=== PATIENT | male | born 1955 | race Caucasian/White ===

== ENCOUNTER 2016-05-17 21:38 | Emergency (ER) | payer OTHER ==
[~2016-05-17] VITALS: Ht 170.2 cm; Wt 106.5 kg
[~2016-05-17 21:38] MED LIST: ACT15 PO; AMR2 PO; GLC500 PO; HYDC25 PO; LISI40TA PO; METO50TA7 PO; SIMV20TA2 PO
[2016-05-17 21:43] VITALS: TEMP 36.4; Ht 170.2 cm; Wt 106.5 kg
[2016-05-17] MEDS ORDERED: HYDROCODONE/ACETAMOPHEN 5/325MG TAB PO ONE (22:00)
[2016-05-17] MEDS ORDERED: HYDR25TA4 PO (22:13)
[2016-05-17] MEDS ORDERED: CANA1TAB3 PO (22:13)
[2016-05-17] MEDS ORDERED: METF1TAB85 PO (22:13)
[2016-05-17] MEDS ORDERED: ATOR-24 PO (22:19)
[2016-05-17] MEDS ORDERED: LOSA100T65 PO (22:19)
[2016-05-17] MEDS ORDERED: ASPI81TA28 PO (22:22)
[2016-05-17] MEDS ORDERED: GLUCTAB7 PO (22:22)
--- NOTE | 2016-05-17 22:34 | DIAGNOSTIC IMAGING REPORT ---
CT OF THE CHEST WITHOUT IV CONTRAST CLINICAL HISTORY: Chest pain status post trauma COMPARISON STUDY: No previous studies for comparison. CT DOSE: 671.76 mGy.cm TECHNIQUE: CT of the thorax was performed from the thoracic inlet to the lung bases. Images are reviewed in the axial, sagittal, and coronal planes. IV contrast was not administered for this examination. FINDINGS: Thyroid: Imaged portions of the thyroid gland are normal in appearance. Thoracic aorta: The thoracic aorta is normal in course and caliber, noting standard 3 vessel arch anatomy. Heart: The heart is normal in size and configuration, without pericardial effusion. Lungs and pleural spaces: No pleural effusions are visualized. There is no pneumothorax. There is no evidence of focal pulmonary contusion. There are minor right basilar atelectatic changes. A 4 x 2 mm right lower lobe nodule abutting the major fissure likely represents a lymph node. There is a 3 mm right upper lobe pulmonary nodule as visualized in image #[id number]. Mediastinum: There is no evidence of mediastinal hematoma. There is no pathologic adenopathy. Ruma: There is no evidence of pathologic hilar adenopathy given the limitations of a noncontrast study Axilla: Clear. Upper abdomen: Partially visualized upper abdominal viscera is within normal limits. Skeletal structures: No fractures are visualized. IMPRESSION: 1. No CT evidence of acute intrathoracic injury 2. 3 mm right upper lobe pulmonary nodule. Please refer to below summary of Fleischner criteria recommendations for follow-up of incidental CT nodules (Jamin Rose, Guidelines for management of small pulmonary nodules detected on CT scans: A statement from the Fleischner Society, Radiology 237: [phone].) Low Risk Patient: Minimal or no smoking or other known risk factors for malignancy <=4 mm: No follow-up needed. >4-6 mm: Initial follow-up CT at 12 months; if unchanged, no further follow-up. >6-8 mm: Initial follow-up CT at 6-12 months then at 18-24 months if no change. >8 mm: Follow-up CT at \R\3, 9, 24 months, or PET and/or biopsy. High Risk Patient: History of smoking or other known risk factors <=4 mm: Follow-up at 12 months; if unchanged, no further follow-up. >4-6 mm: Initial follow-up CT at 6-12 months then at 18-24 months if no change. >6-8 mm: Initial follow-up CT at 3-6 months then at 9-12 and 24 months if no change. >8 mm: Same as low risk patient. Note: Nodule size measured as average of length and width. Ground glass or partly solid nodules may require longer follow-up to exclude indolent adenocarcinoma. Electronically signed by: Arjun Arora M.D. 05/17/2016 10:32 PM Dictated Date/Time: 05/17/2016 10:26 PM
[2016-05-17] MEDS ORDERED: INSPMPHMLG (22:37)
[2016-05-17] MEDS ORDERED: NORCO 5/325MG HOME PACK PO ONE (23:00)
[2016-05-17] MEDS ORDERED: HYDR-5688 PO (23:00)
[2016-05-17 23:05] VITALS: BP 164/74; PULSE 82; O2SAT 98
--- NOTE | 2016-05-18 18:38 | EMERGENCY ROOM VISIT NOTE ---
History First contact with patient: 21:48 Chief Complaint: BACK PAIN Stated Complaint: FELL, RT UPPER BACK PAIN, UNDER SHOULDER BLADE History of Present Illness The patient is a 60 year old male who presents to the Emergency Room with complaints of fall just prior to arrival. The patient states he was walking outside, slipped on ice, and struck the running board of his pickup truck. The patient primarily has tenderness along the right side of his back throughout the ribs. He has pain with deep inspiration. Different twisting motions exacerbate his symptoms. The patient did not strike his head or lose consciousness. He is not on blood thinners. He rates his discomfort a 6/10. Review of Systems More than 10 systems were reviewed and otherwise negative with the exception of history of present illness. Past Medical/Surgical History History of diabetes and hypertension Family History No pertinent family history Social History Smoking Status: Never Smoker Housing Status: lives with family Current/Historical Medications Scheduled Aspirin (Aspirin Ec), 162 MG PO DAILY Atorvastatin (Lipitor), 40 MG PO DAILY Canagliflozin (Invokana), 300 MG PO DAILY Oxlhgvemmlx-Wqwsqzioxdv-Kuc C- (Glucosamine Chondroitin), 1 TAB PO BID Hydrochlorothiazide (Hctz), 25 MG PO DAILY Insulin Human Lispro (Insulin Humalog Pump ), 1 EA N/A UD Losartan Potassium (Cozaar), 100 MG PO DAILY Metformin Hcl (Metformin Hcl Er), 1,000 MG PO BID Metoprolol Succ (Toprol Xl) (Toprol-Xl), 50 MG PO DAILY Scheduled PRN Hydrocodone/Acetaminophen 5MG/325MG (Kaaawa 5MG/325MG), 1-2 TABLET PO Q6 PRN for Pain Allergies Coded Allergies: Oxycodone (Verified Adverse Reaction, Intermediate, Nausea/Vomiting, ) Lisinopril (Verified Adverse Reaction, Mild, Cough, 05/17/16) Physical Exam Vital Signs Date Time Temp Pulse Resp B/P Pulse Ox O2 Delivery O2 Flow Rate FiO2 05/17/16 23:05 82 16 164/74 98 05/17/16 21:43 36.4 90 18 176/82 97 Room Air Pain Rating (0-10): 2.0 Physical Exam VITALS: Vitals are noted on the nurse's note and reviewed by myself. Vital signs stable. GENERAL: Well-developed, well-nourished, white male, who is in no acute distress and resting comfortably. Patient is cooperative with the examination. HEAD: Normocephalic atraumatic. NECK: Supple without nuchal rigidity. No lymphadenopathy. No thyromegaly. Cervical spine is nontender. HEART: Regular rate and rhythm without murmurs gallops or rubs. LUNGS: Clear to auscultation bilaterally without wheezes, rales or rhonchi. No retractions or accessory muscle use. ABDOMEN: Positive normal bowel sounds x 4. Soft, nontender, without masses or organomegaly. No guarding or rebound tenderness. MUSCULOSKELETAL: No muscle atrophy, erythema, or edema noted. Significant tenderness appreciated throughout the right side posterior ribs roughly the sixth through ninth distribution. The patient is exquisitely tender in this area. No significant bruising or ecchymosis noted. No flail chest. No tenderness laterally or anteriorly of the chest wall. NEURO: Patient was alert and oriented to person place and time. CN II through XII grossly intact. Medical Decision & Procedures ER Provider Diagnostic Interpretation: CT OF THE CHEST WITHOUT IV CONTRAST CLINICAL HISTORY: Chest pain status post trauma COMPARISON STUDY: No previous studies for comparison. CT DOSE: 671.76 mGy.cm TECHNIQUE: CT of the thorax was performed from the thoracic inlet to the lung bases. Images are reviewed in the axial, sagittal, and coronal planes. IV contrast was not administered for this examination. FINDINGS: Thyroid: Imaged portions of the thyroid gland are normal in appearance. Thoracic aorta: The thoracic aorta is normal in course and caliber, noting standard 3 vessel arch anatomy. Heart: The heart is normal in size and configuration, without pericardial effusion. Lungs and pleural spaces: No pleural effusions are visualized. There is no pneumothorax. There is no evidence of focal pulmonary contusion. There are minor right basilar atelectatic changes. A 4 x 2 mm right lower lobe nodule abutting the major fissure likely represents a lymph node. There is a 3 mm right upper lobe pulmonary nodule as visualized in image #[id number]. Mediastinum: There is no evidence of mediastinal hematoma. There is no pathologic adenopathy. Ruma: There is no evidence of pathologic hilar adenopathy given the limitations of a noncontrast study Axilla: Clear. Upper abdomen: Partially visualized upper abdominal viscera is within normal limits. Skeletal structures: No fractures are visualized. IMPRESSION: 1. No CT evidence of acute intrathoracic injury 2. 3 mm right upper lobe pulmonary nodule. Please refer to below summary of Fleischner criteria recommendations for follow-up of incidental CT nodules (Jamin Rose, Guidelines for management of small pulmonary nodules detected on CT scans: A statement from the Fleischner Society, Radiology 237: [phone].) Low Risk Patient: Minimal or no smoking or other known risk factors for malignancy <=4 mm: No follow-up needed. >4-6 mm: Initial follow-up CT at 12 months; if unchanged, no further follow-up. >6-8 mm: Initial follow-up CT at 6-12 months then at 18-24 months if no change. >8 mm: Follow-up CT at \\R\\3, 9, 24 months, or PET and/or biopsy. High Risk Patient: History of smoking or other known risk factors <=4 mm: Follow-up at 12 months; if unchanged, no further follow-up. >4-6 mm: Initial follow-up CT at 6-12 months then at 18-24 months if no change. >6-8 mm: Initial follow-up CT at 3-6 months then at 9-12 and 24 months if no change. >8 mm: Same as low risk patient. Note: Nodule size measured as average of length and width. Ground glass or partly solid nodules may require longer follow-up to exclude indolent adenocarcinoma. Medications Administered Medications (Trade) Dose Ordered Sig/Cole Route Start Time Stop Time Status Last Admin Dose Admin Acetaminophen/ Hydrocodone Bitart (Kaaawa 5/325 Tab) 2 tab NOW ONCE PO 05/17/16 22:00 05/17/16 22:01 DC 05/17/16 22:02 2 TAB Acetaminophen/ Hydrocodone Bitart (Kaaawa 5/325mg Home Pack) 1 homepack UD ONCE PO 05/17/16 23:00 05/17/16 23:01 DC 05/17/16 23:03 1 HOMEPACK ED Course Physical exam and history were performed. Nursing notes and EMR were reviewed. Patient appears to have fallen and suffered injury to his right side back/RIBS today. The patient is exquisitely tender from the fall. Because of his mechanism and discomfort I did elect to perform a CT scan of his chest. The patient was given Vicodin here in the department for pain control. The patient CT scan is as above and was reviewed. He does not have evidence of fracture or pneumothorax. He did have improvement of his symptoms after Vicodin , but did continue with some discomfort with range of motion. The patient also has an incidental pulmonary nodule. He is not a regular smoker , stating that when he was very young he would have a few cigarettes a week with his friends, but no significant pack year history. He is not employed in a high risk profession for cancer. He may follow-up with his primary care physician regarding the nodule. Overall the patient appears stable for discharge home. I suspect his discomfort is from the contusion, and should improve over the next 1-2 weeks. I will give him a short course of Vicodin for pain control. He may use over-the -counter analgesics. The patient was otherwise invited back to the ER with any new, worsening, or concerning symptoms. The chart was completed utilizing [employer] Speech Voice Recognition Software. Grammatical errors, random word insertions, pronoun errors, and incomplete sentences are an occasional consequence of this system due to software limitations, ambient noise, and hardware issues. Any formal questions or concerns about the content, text, or information contained within the body of this dictation should be directly addressed to the provider for clarification. . Medical Decision Differential diagnosis includes, but is not limited to: Sprain, strain, fracture , dislocation", contusion, pneumothorax, and other traumatic injuries were considered Impression Primary Impression: Fall Additional Impression: Right-sided back pain Departure Information Dispostion Home / Self-Care Condition GOOD Prescriptions Hydrocodone/Acetaminophen 5MG/325MG (Kaaawa 5MG/325MG) Tab 1-2 TABLET PO Q6 Y for Pain, #24 TAB For Initial Treatment Prov: Cory Muhammad PA-C 05/17/16 Forms HOME CARE DOCUMENTATION FORM, IMPORTANT VISIT INFORMATION Patient Instructions My [facility] Additional Instructions You were seen and evaluated today on an emergency basis only. This is not a substitute for, or an effort to provide, complete comprehensive medical care. It is not possible to recognize and treat all injuries or illnesses in a single emergency department visit. For this reason it is recommended that you followup with your primary care physician this week for ongoing care and evaluation. For baseline pain relief you may alternate ibuprofen and acetaminophen every 4 hours for pain control. Take 600 mg ibuprofen (Advil) and then 4 hours later take 1000 mg acetaminophen (Tylenol). Do not take more than 3000 mg acetaminophen in a single day. Kaaawa (hydrocodone/acetaminophen) 5/325 mg ONE or TWO pills by mouth every 6 hours as needed for worsening breakthrough pain. Do not drink or drive on Kaaawa. This medication will likely make you tired. Do not take Kaaawa and Tylenol at the same time as both contain acetaminophen. Kaaawa may cause constipation. You may wish to take an [id number]-[id number] stool softener like Colace if this occurs. You are welcome to return to the emergency department anytime with new, worsening, or concerning symptoms. Problem Qualifiers
== END 2016-05-17 23:06 | disposition home or self-care (01) ==
LOC: C.EDB 21:39 → C.EDD 23:06
DX: M54.9 Dorsalgia, unspecified (principal); W00.0XXA Fall on same level due to ice and snow, initial encounter; E11.9 Type 2 diabetes mellitus without complications; I10 Essential (primary) hypertension; Z79.82 Long term (current) use of aspirin; Z79.4 Long term (current) use of insulin; Z79.899 Other long term (current) drug therapy

== ENCOUNTER → 2016-09-16 | Outpatient (CLI) | payer OTHER ==
[~2016-09-16] MED LIST changes: -ACT15 PO; -AMR2 PO; +ASPI81TA28 PO; +ATOR-24 PO; +CANA1TAB3 PO; -GLC500 PO; +GLUCTAB7 PO; -HYDC25 PO; +HYDR-5688 PO; +HYDR25TA4 PO; +INSPMPHMLG; -LISI40TA PO; +LOSA100T65 PO; +METF1TAB85 PO; -SIMV20TA2 PO
[2016-09-16 12:51] LABS: BLOOD UREA NITROGEN 30 mg/dl (7-18)
[2016-09-16 12:59] LABS: ESTIMATED AVERAGE GLUCOSE 169 mg/dl; HA1C FLAG Normal (Normal)
[2016-09-16 13:18] LABS: RATIO 75.7 mcg/mg (0-30.0)
== END | disposition home or self-care (01) ==
LOC: C.LAB 10:41
PROVIDERS: ATTEND Internal Medicine Endocrinology, Diabetes & Metabolism
DX: E08.42 Diabetes mellitus due to underlying condition with diabetic polyneuropathy (principal)

== ENCOUNTER → 2017-02-10 | Outpatient (CLI) | payer OTHER ==
[~2017-02-10] MED LIST changes: -HYDR-5688 PO
[2017-02-10 09:51] LABS: ALT/SGPT 33 U/L (12-78); AST/SGOT 17 U/L (15-37); BLOOD UREA NITROGEN 18 mg/dl (7-18); BUN/CREATININE RATIO 19.8 (10-20); CALCIUM 9.5 mg/dl (8.5-10.1); CARBON DIOXIDE 27 mmol/L (21-32); CHLORIDE 105 mmol/L (98-107); CHOLESTEROL 126 mg/dl (0-200); CREATININE 0.92 mg/dl (0.60-1.40); GLUCOSE 136 mg/dl (70-99); POTASSIUM 3.8 mmol/L (3.5-5.1); SODIUM 140 mmol/L (136-145)
[2017-02-10 09:54] LABS: CHOLESTEROL/HDL RATIO 3.2; HDL CHOLESTEROL 39 mg/dl; LDL CHOLESTEROL CALCULATED 32 mg/dl; TRIGLYCERIDES 273 mg/dl (0-150); VERY LOW DENSITY LIPOPROT CALC 55 mg/dl
[2017-02-10 10:23] LABS: RATIO 58.7 mcg/mg (0-30.0)
[2017-02-10 11:00] LABS: ESTIMATED AVERAGE GLUCOSE 174 mg/dl; HA1C FLAG Normal (Normal)
== END | disposition home or self-care (01) ==
LOC: C.LAB 07:08
PROVIDERS: ATTEND Family Medicine
DX: E11.49 Type 2 diabetes mellitus with other diabetic neurological complication (principal)

== ENCOUNTER 2023-03-29 16:34 | Inpatient (IN) ==
--- OUTSIDE RECORDS SUMMARY | 2023-03-29 16:44 | External Medical Summary | Summary of Care ---
Author Name Unknown Organization [facility] Address [address] [facility] [place] [address] Phone [phone] Care Team Providers Care Net Mender Name Role Phone Gold Zhang MD Primary Care Provider + Reason for Referral * Evaluate & Treat - Unlimited Visits (Within 10 days (routine)) - Pending Review Specialty Diagnoses / Procedures Referred By Shayy dumont Referred To Contact Dermatology Diagnoses BCC (basal cell carcinoma), scalp/neck Brooke Huerta PA-C [address] [place] [address] Referral ID Status Reason Start Date Expiration Date Visits Requested Visits Authorized [id number] Pending Review Specialty Services Required 3 [phone] Question Answer Referral Priority Within 10 days (routine) Where should this appointment be scheduled? [facility] Are you referring the patient for Mohs Surgery and have a current positive skin cancer biopsy result? Yes Type of Procedure MOHS Surgery Reason for Visit * Reason Onset Date Comments Test Results Biopsy 03/18/2023 Encounter Details Date Type Department Care Team ([facility] Contact Info) Description 03/18/2023 Telephone Dermatology [facility] [address] [facility] [place] [address] Brooke Huerta PA-C [address] [facility] [place] [address] Test Results Biopsy Allergies Active Allergy Reactions Criticality Noted Date Comments Exenatide 01/22/2015 Dizzy, lightheaded and nausea Lisinopril Cough Low 06/22/2013 documented as of this encounter (statuses as of 03/18/2023) Medications Medication Sig Dispensed Refills Start Date End Date Status ASPIRIN 81 MG PO TABSIndications:HTN, goal below 140/90 one tab by mouth daily 34 0 05/23/2005 Active ONETOUCH ULTRA 2 W/DEVICE KITIndications:DM type 2, goal A1c below 7 Use as directed. 1 Kit 0 11/19/2011 Active ONETOUCH ULTRASOFT LANCETS MISCIndications:DM type 2, goal A1c below 7 Use as directed. 300 Box 3 11/19/2011 Active hydrocortisone 2.5%-clotrimazole 1% 1:1Indications:Angul ar cheilitis Apply to corners of the lips twice daily as needed for flares. 30 g 2 09/07/2017 Active Insulin Infusion Pump Supplies (STEFFI INFUSION SET 18" 6MM) MISCIndications:Type 2 diabetes mellitus with hemoglobin A1c goal of less than 8.0% (HCC) Use with insulin pump. Change every 1-2 days or as directed. ICD10: E11.9 30 Each 3 07/06/2018 Active Insulin Infusion Pump Supplies (PARADIGM PUMP RESERVOIR 3ML) MISCIndications:Type 2 diabetes mellitus with hemoglobin A1c goal of less than 8.0% (HCC) Use every 1-2 days for insulin pump. Uses approximately 120 units/day. 50 Each 3 07/06/2018 Active Insulin Infusion Pump (MINIMJiongji App 630G INSULIN PUMP) KIT Use as directed. 1 Kit 0 07/06/2018 Active Glucose Blood (CONTOUR NEXT TEST) STRP USE TO TEST BLOOD SUGAR UP TO 6 TIMES DAILY WITH [employer]ON[employer] INSULIN PUMP 600 Strip 3 09/28/2019 Active Insulin Lispro 100 UNIT/ML Subcutaneous Solution (HumaLOG)Indications :Diabetic polyneuropathy (HCC),Diabetes mellitus with background retinopathy (HCC),Type 2 diabetes mellitus with hemoglobin A1c goal of less than 8.0% (HCC) USE FOR INSULIN PUMP (1 VIAL LASTS 3 DAYS) 300 mL 1 08/10/2020 Active Insulin Lispro 100 UNIT/ML Injection Solution (Humalog) INJECT 200 UNITS (2 ML) SUBCUTANEOUSLY DAILY 90 DAYS VIA INSULIN PUMP 0 11/29/2021 Active Ozempic (0.25 or 0.5 MG/DOSE) 2 MG/1.5ML Solution Pen-injector (Semaglutide(0.25 or 0.5MG/DOS)) Inject 0.5 mg under the skin once a week. 1.5 mL 0 05/07/2022 Active metFORMIN HCl ER 500 MG Oral Tablet Extended Release 24 Hour (Glucophage XR) TAKE 2 TABS TWICE A DAY 0 05/26/2022 Active Atorvastatin Calcium 40 MG Oral Tablet (Lipitor)Indications :Dyslipidemia, goal LDL below 100 TAKE 1 TABLET BY MOUTH EVERY DAY 90 Tablet 2 08/29/2022 Active Metoprolol Succinate ER 50 MG Oral Tablet Extended Release 24 Hour (toPROL XL)Indications:Essen tial hypertension with goal blood pressure less than 140/90 TAKE 1 TABLET BY MOUTH EVERY DAY FOR BLOOD PRESSURE 90 Tablet 2 08/29/2022 Active hydroCHLOROthiazide 25 MG Oral Tablet (Hydrodiuril)Indicat ions:Essential hypertension with goal blood pressure less than 140/90 TAKE 1 TABLET BY MOUTH EVERY DAY 90 Tablet 2 08/29/2022 Active Olmesartan Medoxomil 40 MG Oral Tablet (Benicar)Indications :Microalbuminuric diabetic nephropathy (HCC) TAKE 1 TABLET BY MOUTH EVERY DAY IN THE MORNING 90 Tablet 1 10/21/2022 Active Ozempic (1 MG/DOSE) 4 MG/3ML Subcutaneous Solution Pen-injector Inject 1 mg under the skin once a week. 0 12/15/2022 Active Invokana 300 MG Oral Tablet Take 1 Tablet by mouth in the morning. 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 sees [facility] endo Dr Andrez Charles--has pump 07/23 colon mult polyps--path tubular adenoma & rectal ulcerated hyperplastic polyp. 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 ADVANCE DIRECTIVE INFORMATION 03/16/2007 Overview: Yes, Patient instructed to provide copy of advance directive for provider to review and to be scanned into Electronic Medical Record Diabetic polyneuropathy 04/12/2003 Overview: ICD-10 update of inactive term Diabetes mellitus with background retinopathy Microalbuminuria documented as of this encounter (statuses as of 03/18/2023) Resolved Problems Problem Noted Date Diagnosed Date Resolved Date Type 2 diabetes mellitus wit h hemoglobin A1c goal of less than 8.0% 01/22/2015 08/27/2016 Overview: ICD-10 update of inactive term Type 1 diabetes mellitus wit h hemoglobin A1c goal of less than 8.0% 10/13/2014 01/22/2015 Overview: ICD-10 update of inactive term Paronychia of second finger of left hand 06/17/2014 11/17/2014 GERD (gastroesophageal reflux disease) 12/01/2011 05/22/2017 Insomnia 08/09/2010 01/05/2019 Overview: ICD-10 update of inactive term Severe obesity with body mas s index (BMI) of 35.0 to 39.9 with serious comorbidity 07/30/2009 Overview: Per Obesity Taxonomy ICD-10 update of inactive diagnosis HTN, goal below 130/80 05/30/200908/06 Overview: Per HTN Taxonomy. Type 1 diabetes mellitus wit h hemoglobin A1c goal of less than 7.0% 03/01/2009 10/12/2014 Overview: Pt uses a Mix & Meet external insulin pump which requires the use of dolores contour next test strips ICD-10 update of inactive term PURE HYPERCHOLESTEROLEM 05/23/200504/03 Overview: Per Lipid Taxonomy. OBESITY, UNSPECIFIED 06/10/2001 010 Overview: Per Obesity Taxonomy Type 2 diabetes mellitus wit h hemoglobin A1c goal of less than 7.0% 03/01/2009 Overview: Per Diabetes Taxonomy. ICD-10 update of inactive term HTN, goal below 140/90 05/30 Overview: Per HTN Taxonomy. documented as of this encounter (statuses as of 03/18/2023) Immunizations Name Administration Dates Next Due COVID-19 mRNA, LNP-s, No Pre serve, 2-Dose Series (Moderna) 06/13/2020,05/23/2020 COVID-19 mRNA, LNP-s, No Pre serve, 2-Dose Series (Pfizer) 02/21/2021 Influenza, Whole Virus 04/12/2003 Pneumococcal Conjugate Vacc, 13 Valent (Prevnar) 05/22/2017 Pneumococcal Polysaccharide PPV23 (Pneumovax) 03/30/2019,04/12/2003 SEASONAL INFLUENZA, PF, 6 M & Above, IM , (FLULAVAL or FLUZONE) 03/18/2021,02/23/2020,03/30/2019,02/02,04/01/2017 Seasonal Influenza, Quadriva lent Hd (Fluzone Hd) 03/09/2023,03/21/2022 Seasonal Influenza, Quadriva lent, No Preserve, IM 03/12/2016,04/05/2015 Seasonal Influenza, Split, I IV3, With Preserve, Inj 02/10/2014,02/16/2013,02/12/2012,12/2010,01/31/2010,01/09/2009,02/28/20 08,04/02/2004,03/09/2002 TD - Tetanus/Diptheria (ADULT) 05/24/1999 0 05/24/2009 TDAP (age 10 and older)(Boostrix) 11/25/2018 TDAP (age 11 and older)(Adacel) 07/23/2009 Varicella Zoster Vaccine (Adult) 12/24/2016 Zoster Vaccine Recombinant (Shingrix) 05/06/2021 ,11/01/2020 documented as of this encounter Social History Tobacco Use Types Packs/Day Years Used Date Smoking Tobacco: Never Smokeless Tobacco: Never Alcohol Use Standard Drinks/Week Comments Yes 0 (1 standard drink = 0.6 oz pur e alcohol) 2-4 beers/month PHQ-2 Answer Date Recorded PHQ Adult Total Score 0 11/05/2022 Hunger Vital Sign Answer Date Recorded Within the past 12 months, y ou worried that your food would run out before you got the money to buy more. Never true 11/06/19 23 Within the past 12 months, t he food you bought just didn't last and you didn't have money to get more. Never true 11/05/2022 Sex and Gender Information Value Date Recorded Sex Assigned at Male 11/05/2022 8:16 AM EDT Gender Identity Male 11/05/2022 8:16 AM EDT Sexual Orientation Straight 11/05/2022 8: 16 AM EDT Job Start Date Occupation Industry Not on file Not on file Not on file documented as of this encounter Miscellaneous Notes * Addendum Note - Brooke Huerta PA-C - 03/18/2023 11:36 AM EST Addended by: BROOKE HUERTA on: 03/18/2023 11:36 AM Modules accepted: Orders * Telephone Encounter - Brooke Huerta PA-C - 03/18/2023 11:36 AM EST Referral placed * Telephone Encounter - Kirstie Rodriguez LPN - 03/18/2023 11:30 AM EST Biopsy results given to patient. Verbalized understanding. Has efudex on hand will start using on AK spots after MOHS surgery. Follow up appt scheduled. Needs MOHS * Telephone Encounter - Kirstie Rodriguez LPN - 03/18/2023 11:26 AM EST ----- Message from Brooke Huerta PA-C sent at 03/16/2023 12:34 PM EST ----- A. Skin, R temporal scalp, shave: Actinic keratosis with deep adnexal extension B. Skin, R earlobe, shave: Hypertrophic actinic keratosis C. Skin, R medial cheek, shave: Actinic keratosis with adnexal extension D. Skin, L parietal scalp, shave: Basal cell carcinoma, at least nodular type Adjacent actinic keratosis with adnexal extension Please let pt know bx results A-C: precancerous sun-damage spots, recommend Efudex D: BCC, recommend Mohs. Pt should have Efudex at home but has not started yet. Will have him treat with Efudex once Mohs surgery is complete and healed in order to prevent confusion with lesions. Will place referral once notified. Please have him f/u in 3-4 months. documented in this encounter Plan of Treatment Upcoming Encounters Date Type Department Care Team (Late st Contact Info) Description 04/23/2023 2:45 PM EST Office Visit Ophthalmology, [facility] [address] [place] [address] Felix Sanchez, DO [address] [place] [address] 05/20/2023 8:00 AM EST Hospital Encounter OR [facility], Operating Room [facility] [address] [place] [address] Zoltan Fall, [address] [place] [address] 05/20/2023 8:00 AM EST - 05/20/2023 8:25 AM EST Surgery OR [facility], Operating Room [facility] [address] [place] [phone] Zoltan Fall, [address] [place] [address] INJECTION TRANSFORAMINAL EPIDURAL LUMBAR OR SACRAL 07/17/2023 9:40 AM EDT [facility] [address] [facility] [place] [address] Brooke Huerta PA-C [address] [facility] [place] [address] 11/06/2023 8:20 AM EDT Office Visit Family Practice [facility] [address] [place] [address] Gold Zhang MD [address] [place] [address] Scheduled Procedures Name Priority Associated Diagnoses Date/Ti me INJECTION TRANSFORAMINAL EPIDURAL LUMBAR OR SACRAL Lumbar radiculopathy 05/20/2023 8:00 AM EST COLONOSCOPY FLEXIBLE PROXIMAL DIAGNOSTIC Recall History of colon polyps Scheduled Referrals Name Type Priority Associated Diagnoses Orde r Schedule MOHS SURGERY REFERRAL OP Referral Within 10 days (routine) BCC (basal cell carcinoma), scalp/neck Ordered: 03/18/2023 Health Maintenance Due Date Last Done Comments DXA Scan 1955 Hepatitis B (1 of 3 - Risk 3-dose series) 2016 B-12 11/09/2021 11/09/2020, 10/2018, 04/01/2017 Albumin/Creatinine Ratio 07/11/2022 022, 05/25/2020, 07/06/2018, Additional history exists HbA1c 08/29/2022 02/28/2022, 02/02 (Done elsewhere), 07/11/2021, Additional history exists COVID-19 Vaccine ( - 2022- season) 2023 02/21/2021, 06/13/2020, 05/23/2020 GFR 02/28/2023 02/28/2022, 07/02, 12/11/2020, Additional history exists Diabetic Foot Exam 07/12/2023 07/11/2022 (D one elsewhere), 05/06/2021, 01/10/2020, Additional history exists Diabetic Eye Exam 08/29/2023 08/28/2022, , 08/13/2021, Additional history exists Depression Screening 11/06/2023 11/05/2022 Pneumococcal Vaccine: 65+ Years (4 - PPSV23 or PCV20) 03/30/2024 03/30/2019, 05/22/2017, 04/12/2003 COLONOSCOPY-EVERY 3 YRS AGES 18-100 07/31/2024 07/31/2021, 07/31/2021, 06/03/2007 Lipid Panel 02/28/2027 02/28/2022, 05/05, 01/06/2020, Additional history exists DTaP,Tdap,and Td Vaccines (3 - Td or Tdap) 11/25/2028 11/25/2018, 07/23/2009, 05/24/1999 Cologuard Discontinued 07/06/2017 Zoster Vaccines Completed 05/06/2021, 05/2020, 12/24/2016 Colonoscopy Discontinued 07/31/2021, 07/04, 06/03/2007 Colorectal Cancer Screening Discontinued Influenza Vaccine (FLU shot) Completed 03/09/2023, 03/21/2022, 03/18/2021, Additional history exists Fecal Occult Blood Test Discontinued GARDASIL-HPV IMMUNIZATION SERIES Aged Out No longer eligible based on patient's age to complete this topic MENINGOCOCCAL (MENACTRA/MENVEO) Aged Out No longer eligible based on patient's age to complete this topic Sigmoidoscopy Discontinued documented as of this encounter Medical Devices Implanted Type Area Multiple Drum Sander Helper Device Identifier Shelf Expiration Date Model / Serial / Lot Clip Quick 2.8mm 230cm - [id number] Implanted:Qty: 1 on 07/31/2021 by Juan Jose Angulo MD at [facility]COPY [facility] Colon [employer] 12/02/2023 [id number] / [id number] documented as of this encounter Visit Diagnoses Diagnosis BCC (basal cell carcinoma), scalp/neck- Primary Basal cell carcinoma of scalp and skin of neck Lumbar radiculopathy Thoracic or lumbosacral neuritis or radiculitis, unspecified documented in this encounter Care Teams Net Mender Relationship Specialty Start Date End Date Gold Zhang MD [address] [facility] [place] [address] PCP - General Family Medicine 08/02/20 documented as of this encounter
--- OUTSIDE RECORDS SUMMARY | 2023-03-29 16:44 | External Medical Summary | Summary of Care ---
Author Name Unknown Organization [facility] Address [address] [facility] [place] [address] Phone [phone] Care Team Providers Care Pocketed Spring Machine Operator Name Role Phone Gold Zhang MD Primary Care Provider + Reason for Referral * Evaluate & Treat - Unlimited Visits (Within 10 days (routine)) - Pending Review Specialty Diagnoses / Procedures Referred By Shayy dumont Referred To Contact Dermatology Diagnoses BCC (basal cell carcinoma), scalp/neck Brooke Huerta PA-C [address] [place] [address] Referral ID Status Reason Start Date Expiration Date Visits Requested Visits Authorized [id number] Pending Review Specialty Services Required 3 [phone] [...] Encounter Details Date Type Department Care Team ([facility] Contact Info) Description 03/18/2023 Telephone Dermatology [facility] [address] [facility] [place] [address] Brooke Huerta PA-C [address] [facility] [place] [address] Test Results Biopsy Allergies Active Allergy Reactions [...] Each 3 07/06/2018 Active Insulin Infusion Pump (MINIMAdaptive [employer] 630G INSULIN PUMP) KIT Use as directed. 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 sees [facility] endo Dr Andrez Charles--has pump 07/23 [...] 7.0% 03/01/2009 10/12/2014 Overview: Pt uses a Real Time Translation external insulin pump which requires the use [...] as of this encounter Miscellaneous Notes * Telephone Encounter - Fidelia Segundo OSA - 03/18/2023 1:13 PM EST Spoke to patient and scheduled for mohs with DR Pradhan for 05/27/23 at 10:30am. Will mail a mohs packet. * Addendum Note - Brooke Huerta PA-C [...] 04/23/2023 2:45 PM EST Office Visit Ophthalmology, [facility] [address] [place] [address] Felix Sanchez, DO [address] [place] [address] 05/20/2023 8:00 AM EST Hospital Encounter OR [facility], Operating Room [facility] [address] [place] [phone] Zoltan Fall, [address] [place] [address] 05/20/2023 8:00 AM EST - 05/20/2023 8:25 AM EST Surgery OR [facility], Operating Room [facility] [address] [place] [phone] Zoltan Fall, DO [address] [place] [phone] INJECTION TRANSFORAMINAL EPIDURAL LUMBAR OR SACRAL 05/27/2023 10:30 AM EST Office Visit MOHS Surgery [facility] [address] [place], [place] [address] [facility]adhan [facility] [address] [facility] [address] 07/17/2023 9:40 AM EDT Office Visit Dermatology [address], [place] [address] [place] [address] Brooke Huerta PA-C [address] [place] [address] 11/06/2023 8:20 AM EDT Office Visit Family Practice [facility] [address] [place] [address] Gold Zhang MD [address] [place] [address] Scheduled Procedures Name Priority Associated Diagnoses Date/Ti [...] Risk 3-dose series) 2016 B-12 11/09/2021 11/09/2020, 090 10/2018, 04/01/2017 Albumin/Creatinine Ratio 07/11/2022 022, 05/25/2020, 07/06/2018, Additional history exists HbA1c 08/29/2022 02/28/2022, 02/02 (Done elsewhere), 07/11/2021, Additional history exists COVID-19 Vaccine ( season) 2023 02/21/2021, 06/13/2020, 05/23/2020 GFR 02/28/2023 [...] Cologuard Discontinued 07/06/2017 Zoster Vaccines Completed 05/06/2021, 070 05/2020, 12/24/2016 Colonoscopy Discontinued 07/31/2021, 07/04, 06/03/2007 [...] this encounter Medical Devices Implanted Type Area Open Hearth Furnace Operator Device Identifier Shelf Expiration Date Model / Serial / Lot Clip Quick 2.8mm 230cm - [id number] Implanted:Qty: 1 on 07/31/2021 by Juan Jose Angulo MD at ENDOSCOPY [facility] Colon [employer] 12/02/2023 [id number] / [id number] documented as of this encounter Visit Diagnoses Diagnosis BCC (basal cell carcinoma), scalp/neck- Primary Basal cell carcinoma of scalp and skin of neck Lumbar radiculopathy Thoracic or lumbosacral neuritis or radiculitis, unspecified documented in this encounter Care Teams Pocketed Spring Machine Operator Relationship Specialty Start Date End Date Gold Zhang MD [address] [place] [address] PCP - General Family Medicine 08/02/20 documented as of this encounter
--- OUTSIDE RECORDS SUMMARY | 2023-03-29 16:45 | External Medical Summary | Summary of Care ---
Author Name Unknown Organization [facility] Address [address] [address] Phone [phone] Care Team Providers Care Trail Maintenance Worker Name Role Phone Gold Zhang MD Primary Care Provider + Reason for Visit * Reason Comments Follow Up 6-8 week f/u; pt has no new complaints since JHON * Precert (Within 10 days (routine)) - Authorized Specialty Diagnoses / Procedures Referred By Shayy dumont Referred To Contact Ophthalmology Diagnoses Type 2 diabetes mellitus with proliferative diabetic retinopathy with macular edema, right eye (HCC) Procedures INECTION,BEVACIZUMAB, 10 MG LA INTRAVITREAL NJX PHARMACOLOGIC AGT SPX Felix Sanchez DO [address] [place] [address] Referral ID Status Reason Start Date Expiration Date V isits Requested Visits Authorized [id number] Authorized Precert 04/30/2021 05/03/2099 99 [phone] Encounter Details Date Type Department Care Team Description 01/13/2023 Office Visit Ophthalmology, [facility] [address] [place] [address] Felix Sanchez DO [address] [place] [address] 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, unspecified whether custodial insulin use (HCC)* Allergies Active Allergy Reactions Severity Noted Date Comments Exenatide 01/22/2015 Dizzy, lightheaded and nausea Lisinopril Cough Low 06/22/2013 documented as of this encounter (statuses as of 01/13/2023) Medications Medication Sig Dispensed Refills Start Date [...] Each 3 07/06/2018 Active Insulin Infusion Pump (MINIMStyloola 630G INSULIN PUMP) KIT Use as directed. 1 Kit 0 07/06/2018 Active Glucose Blood (CONTOUR NEXT TEST) STRP USE TO TEST BLOOD SUGAR UP TO 6 TIMES DAILY WITH [employer] INSULIN PUMP 600 Strip 3 09/28/2019 Active [...] mouth in the morning. 0 12/21/2022 Active Hospital, Clinic, or Other Facility Administered Medication Ordered Dose Route Frequency Start Date End Date Status bevaCIZumab (Avastin) inj 1.25 mgIndications: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, unspecified whether custodial insulin use (HCC) 1.25 mg IZ PRN 11/26/2022 11/26/2023 Active ROPivacaine (Naropin) inj 1.5 mgIndications: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, unspecified whether custodial insulin use (HCC) 1.5 mg PERINEURAL PRN 11/26/2022 11/26/2023 Active documented as of this encounter (statuses as of 01/13/2023) Active Problems Problem Noted Date Vertigo 11/05/2022 Overview: intermittent positional vertigo that he has had almost all his life Arthritis of both hands 05/07/2022 History of 2019 novel coronavirus diseas e (COVID-19) 05/28/2021 Overview: 05/25 Well adult exam 11/01/2020 Overview: Ortho Dr Magana. sees [facility] endo Dr Andrez Charles--has pump 07/23 colon mult polyps--path tubular adenoma & rectal ulcerated hyperplastic polyp. Repeat 3Y Type 2 diabetes mellitus wit h proliferative diabetic retinopathy with macular edema, right eye 08/02/2020 Moderate nonproliferative di abetic retinopathy of left eye without macular edema associated with diabetes mellitus due to underlying condition 07/15/2017 History of basal cell carcinoma 09/17/19 17 Type 2 diabetes mellitus with hemoglobin A1c goal of less than 8.0% 09/16/2016 DALIA inhibitor intolerance 06/22/2013 Essential hypertension with goal blood p ressure less than 140/90 08/07/2011 DYSLIPIDEMIA, GOAL LDL BELOW 100 009 Overview: Per Lipid Taxonomy. ADVANCE DIRECTIVE INFORMATION 03/16/2007 Overview: Yes, Patient instructed to provide copy of advance directive for provider to review and to be scanned into Electronic Medical Record Diabetic polyneuropathy 04/12/2003 Overview: ICD-10 update of inactive term Diabetes mellitus with background retino cici Microalbuminuria documented as of this encounter (statuses as of 01/13/2023) Resolved Problems Problem Noted Date Resolved Date Type 2 diabetes mellitus wit h hemoglobin A1c goal of less than 8.0% 01/22/2015 08/27/2016 Overview: ICD-10 update of inactive term Type 1 diabetes mellitus wit h hemoglobin A1c goal of less than 8.0% 10/13/2014 01/22/2015 Overview: ICD-10 update of inactive term Paronychia of second finger of left hand 015 11/17/2014 GERD (gastroesophageal reflux disease) 2 05/22/2017 Insomnia 08/09/2010 01/05/2019 Overview: ICD-10 update of inactive term Severe obesity with body mas s index (BMI) of 35.0 to 39.9 with serious comorbidity 07/30/2009 03/01/2018 Overview: Per Obesity Taxonomy ICD-10 update of inactive diagnosis HTN, goal below 130/80 05/30/2009 2 Overview: Per HTN Taxonomy. Type 1 diabetes mellitus wit h hemoglobin A1c goal of less than 7.0% 03/01/2009 10/12/2014 Overview: Pt uses a eVigilo external insulin pump which requires the use of dolores contour next test strips ICD-10 update of inactive term PURE HYPERCHOLESTEROLEM 05/23/2005 04/12/20 09 Overview: Per Lipid Taxonomy. OBESITY, UNSPECIFIED 06/10/2001 07/30/2009 Overview: Per Obesity Taxonomy Type 2 diabetes mellitus wit h hemoglobin A1c goal of less than 7.0% 03/01/2009 Overview: Per Diabetes Taxonomy. ICD-10 update of inactive term HTN, goal below 140/90 0 Overview: Per HTN Taxonomy. documented as of this encounter (statuses as of 01/13/2023) Immunizations Name Administration Dates Next Due COVID-19 mRNA, LNP-s, No Pre serve, 2-Dose Series (Moderna) 06/13/2020,05/23/2020 COVID-19 mRNA, LNP-s, No Pre serve, 2-Dose Series (Pfizer) 02/21/2021 Influenza, Whole Virus 04/12/2003 Pneumococcal Conjugate Vacc, 13 Valent (Prevnar) 05/22/2017 Pneumococcal Polysaccharide PPV23 (Pneumovax) 03/30/2019,04/12/2003 Seasonal Influenza, PF, 6 mo ns & Above, IM , (Flulaval) 03/18/2021,02/23/2020,03/30/2019,02/02,04/01/2017 Seasonal Influenza, Quadriva lent Hd (Fluzone Hd) 03/21/2022 Seasonal Influenza, Quadriva lent, No Preserve, IM [...] 0.6 oz pur e alcohol) 2-4 beers/month Food Insecurity Answer Date Recorded Within the past 12 months, y ou worried that your food would run out before you got money to buy more. Never true 11/05/2022 Within the past 12 months, t he food you bought just didn't last and you didn't have money to get more. Never true 11/05/2022 Sex Assigned at Date Recorded Male 11/05/2022 8:16 AM E DT Job Start Date Occupation Industry Not on file Not on file Not on file documented as of this encounter Progress Notes * Felix Sanchez DO - 01/13/2023 12:45 PM EDT [facility] [place] Nursing notes reviewed. Mood and affect: normal HPI: Tony Sheppard is a 67 year old male who presents for DR, old CRVO OD. No other eye complaints. Denies significant pain. Base Eye Exam Visual Acuity (Snellen - Linear) Right Left Dist cc 20/80 -1 20/25 +2 Dist ph cc 20/60 -1 Tonometry (Tonopen, 1:02 PM) Right Left Pressure 15 11 Pupils Pupils Right PERRL Left PERRL Visual Huerta (Counting fingers) Right Left Full Full Extraocular Movement Right Left Full, Ortho Full, Ortho Neuro/Psych Oriented x3: Yes Mood/Affect: Normal Dilation Both eyes: 0.5% Proparacaine @ 1:00 PM Dilation #2 Both eyes: 1.0% Mydriacyl, 2.5% Phenylephrine @ 1:01 PM Dilation Comments Patient cautioned that effects of dilation may last 2-7 hours dependant upon individual reaction. It was discussed that driving while dilated is not recommended. EXTERNAL: The ocular adnexae are unremarkable. SLE: Lids/Lashes: wnl OU Conjunctiva/Sclera: quiet OU Cornea: clear OU Anterior Chamber: deep and quiet OU Iris: trace rubeosis at pupillary margins OD--stable; no NVI OS Lens: 1+NSC OU Dilated fundus exam OD: vitreous: VH-improved optic nerve: 0.7, no edema/pallor, mild NVD--regressed macula: +MAs, no sig CME, +old laser scars vessels: tortuous dilated veins; +ischemic vasculature midperiphery: +PRP, trace heme x 4 quads periphery: no RT/RD, +PRP, trace heme x 4 quads Dilated fundus exam OS: vitreous: clear optic nerve: 0.7, no edema/pallor/NVD macula: wnl, no csme vessels: av nicking midperiphery: +manager medical device periphery: no RT/RD OCT Interpretation: OD: temporal thinning, central fovea clear, +trace ERM, no PVD - improved, prior STABLE, prior STABLE, prior STABLE OS: no CME/SRFluid, no PVD - STABLE, prior STABLE, prior STABLE, prior STABLE Fundus Photo Interpretation - 02/10/17: OD: +regressed NVD, +manager medical device, old FML OS: n/a A/P: 1. Diabetic retinopathy OU PDR OD: -s/p PRP 07/30/16 and 08/27/16 -s/p fill-in PRP 01/21/21 -s/p Avastin for NVD (05/13/21, 12/25/20, 09-18-20, 02-02-20, 03-23-19 for VHs, 12-29-18....09-29-18, 07-23-2017, 05/20/2017, 12-30-16, 06/24/16) -went 19 weeks in past -persistent NVD w/ mild VH 05/13/21 -multiple VH OD 2021 -Avastin 05/26/22, 04/07/22, 09/26/21 -6 months -new VH 11/26/2022 -t/c add PRP NPDR OS: -no CSME OS -recommend HgbA1C <7, BP and lipid control. 2. 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 Trinidad in past -s/p focal laser by Dr. Trinidad -s/p Avastin by Dr. Means 04/16/15 for ++CME 3. Cataracts OU -not visually significant F/u 6-8 weeks - Dilate and OCT OU Felix Sanchez, DO 0323 CC: Danielito Mariee, OD PCP: Azael Stuart MD TIMEOUT PROCEDURE: correct patient identity-YES correct procedure and consent-YES verified side and site-YES correct patient position-YES all necessary equipment/prior studies present-YES reviewed special requirements of this patient-YES PROCEDURE: Intravitreal injection of Avastin 1.25mg OD INFORMED CONSENT: Patient is aware that this is an off-label use of Avastin and that Avastin is not FDA approved for this use. Risks, benefits and alternatives have been discussed with the patient. Risks include, but are not limited to: retinal tears, detachments, hemorrhage, glaucoma, infection, cataracts, need formore procedures and the potential risk of arterial thromboembolic events following use of intravitreal VEGF inhibitors defined as nonfatal stroke, nonfatal myocardial infarction or vascular . Patient is aware of these risks and consents to the procedure. DESCRIPTION OF PROCEDURE: The procedure site was confirmed. Topical proparacaine was applied to the surface of the eye after which subconjunctival anesthetic was administered. The area was prepped in the standard aseptic manner with 5% Betadine solution. An eyelid speculum was placed and 0.05 ml of a 25mg/ml solution of Avastin was injected 3.75 mm posterior to the limbus into the midvitreous cavity with a 30 gauge short needle. The Betadine was flushed from the eye, the eye speculum was removed and optic nerve perfusion was insured. The patient tolerated the procedure without difficulty and was given followup instructions and instructed to use ophthalmic ointment 3x/day as needed. Felix Sanchez DO, performed the procedure in its entirety. documented in this encounter Nursing Notes * Sameera Valdez RN - 01/13/2023 1:26 PM EDT Tony Sheppard to receive 17 Avastin 1.25mg Injection of the Right eye. Correct eye confirmed with patient and marked by Felix Sanchez DO Avastin 1.25mg lot # [id number] Exp. Date: 02/15/23 * SARWAT Sow - 01/13/2023 12:55 PM EDT Tony Sheppard is a 67 year old year old male who presents for DR WATTERS. Last Office Visit: 11/26/2022 (in office), Visit date not found (telemedicine) Patient currently states no change in vision. Are you diabetic? Yes. Do you check your blood sugars daily? YES. Fasting BS this mornin mg/dl. Last Hemoglobin A1C: Lab Results Component Value Date/Time HGBA1C 7.3 (A) 02/28/2022 12:00 AM HGBA1C 8.6 (A) 07/11/2021 12:00 AM HGBA1C 8.2 (A) 12/11/2020 12:00 AM HGBA1C 7.2 (H) 01/07/2019 07:14 AM HGBA1C 8.0 (H) 08/24/2017 08:17 AM HGBA1C 7.5 % 09/16/2016 10:50 AM HGBA1C 9.5 (H) 04/11/1996 09:[address]? yes OCT image(s) of both eyes acquired and filed/scanned into chart. documented in this encounter Plan of Treatment Upcoming Encounters Date Type Specialty Care Team Description 01/29/2023 Hospital Encounter Surgery Eloy Santos Forrest, DO [address] [place] [id number] 01/29/2023 Surgery Surgery Eloy Santos Forrest, DO [address] [place] [id number] INJECTION SPINE LUMBAR OR SACRAL 11/06/2023 Office Visit Family Medicine Gold Zhang MD [address] [place] [address] Scheduled Procedures Name Priority Associated Diagnoses Date/Ti me INJECTION SPINE LUMBAR OR SACRAL Lumbar radiculopathy 01/29/2023 11:20 AM EDT COLONOSCOPY FLEXIBLE PROXIMAL DIAGNOSTIC Recall History of colon polyps Health Maintenance Due Date Last Done Comments DXA Scan 1955 COVID-19 Vaccine (4 - Mixed Product risk series) 04/18/2021 02/21/2021, 06/13/2020, 05/23/2020 B-12 11/09/2021 11/09/2020, 0910/2018, 04/01/2017 Albumin/Creatinine Ratio 07/11/2022 022, 05/25/2020, 07/06/2018, Additional history exists HbA1c 08/29/2022 02/28/2022, 02/02 (Done elsewhere), 07/11/2021, Additional history exists Influenza Vaccine (FLU shot) (#1) 2023 03/21/2022, 03/18/2021, 02/23/2020, Additional history exists GFR 02/28/2023 02/28/2022, 07/02, 12/11/2020, Additional history exists Diabetic Foot Exam 07/12/2023 07/11/2022 (D one elsewhere), 05/06/2021, 01/10/2020, Additional history exists DIABETES-EYE EXAM 08/29/2023 08/28/2022, , 07/05/2021, Additional history exists Depression Screening 11/06/2023 11/05/2022 [...] 07/31/2021, 07/04, 06/03/2007 Colorectal Cancer Screening Discontinued Fecal Occult Blood Test Discontinued GARDASIL-HPV IMMUNIZATION SERIES Aged Out No longer eligible based on patient's age to complete this topic Hepatitis B Aged Out No longer eligi ble based on patient's age to complete this topic MENINGOCOCCAL (MENACTRA/MENVEO) Aged Out No longer eligible based on patient's age to complete this topic Sigmoidoscopy Discontinued documented as of this encounter Medical Devices Implanted Type Area Game Room Attendant Device Identifier Shelf Expiration Date Model / Serial / Lot Clip Quick 2.8mm 230cm - [id number] Implanted:Qty: 1 on 07/31/2021 by Juan Jose Angulo MD at ENDOSCOPY [facility] Colon [employer] 12/02/2023 [id number] / [id number] documented as of this encounter Visit Diagnoses Diagnosis 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, unspecified whether custodial insulin use (HCC)- Primary Lumbar radiculopathy Thoracic or lumbosacral neuritis or radiculitis, unspecified documented in this encounter Administered Medications Active Administered Medications - up to 3 most recent administrations Medication Order MAR Action Action Date Dose Rate Site bevaCIZumab (Avastin) inj 1.25 mg 1.25 mg, Intravitreal, PRN Other, Starting on Thu11/26/22 at 1502, Until Onelia 11/26/23 at 1501, For 365 days Given 01/13/2023 1:30 PM EDT 1.25 mg Eye R ight Given 11/26/2022 3:17 PM EDT 1.25 mg Ey e Right ROPivacaine (Naropin) inj 1.5 mg 1.5 mg, Perineural, PRN Other, Starting on Thu11/26/22 at 1502, Until On[place] 11/26/23 at 1501, For 365 days Given 01/13/2023 1:30 PM EDT 1.5 mg Eye R ight Given 11/26/2022 3:17 PM EDT 1.5 mg Ey e Right documented in this encounter Care Teams Trail Maintenance Worker Relationship Specialty Start Date End Date Gold Zhang MD [address] [place] [address] PCP - General Family Medicine 08/02/20 documented as of this encounter
--- OUTSIDE RECORDS SUMMARY | 2023-03-29 16:45 | External Medical Summary | Summary of Care ---
Author Name Unknown Organization [facility] Address [address] [facility] [place] [address] Phone [phone] Care Team Providers Care Equity Structurer Name Role Phone Gold Zhang MD Primary Care Provider + Reason for Visit * Reason Onset Date Comments Medication Administration 03/09/2023 Flu an d/or Pneumo Inj Encounter Details Date Type Department Care Team (Late st Contact Info) Description 03/09/2023 2:40 PM EST Immunization Ancillary [facility] [address] [facility] [place] [address] [facility], Flu Shot Clinic [facility] [address] [facility] [place] [address] Need for prophylactic vaccination and inoculation against influenza* Allergies Active Allergy Reactions Criticality Noted Date Comments Exenatide 01/22/2015 Dizzy, lightheaded and nausea Lisinopril Cough Low 06/22/2013 documented as of this encounter (statuses as of 03/09/2023) Medications Medication Sig Dispensed Refills Start Date [...] Each 3 07/06/2018 Active Insulin Infusion Pump (MINIMmyAchy 630G INSULIN PUMP) KIT Use as directed. 1 Kit 0 07/06/2018 Active Glucose Blood (CONTOUR NEXT TEST) STRP USE TO TEST BLOOD SUGAR UP TO 6 TIMES DAILY WITH [employer] INSULIN PUMP 600 Strip 3 09/28/2019 Active [...] right eye and macular edema, unspecified whether group home insulin use (HCC) 1.25 mg IZ PRN 11/26/2022 11/26/2023 Active ROPivacaine (Naropin) inj 1.5 mgIndications: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, unspecified whether group home insulin use (HCC) 1.5 mg PERINEURAL PRN 11/26/2022 11/26/2023 Active documented as of this encounter (statuses as of 03/09/2023) Active Problems Problem Noted Date Diagnosed Date Vertigo 11/05/2022 Overview: intermittent positional vertigo that he has had almost all his life Arthritis of both hands 05/07/2022 History of 2019 novel coronavirus disease (COVID -19) 05/28/2021 Overview: 05/25 Well adult exam 11/01/2020 Overview: Ortho Dr Magana. sees [facility] endo Dr Andrez Charles--has pump 07/23 [...] as of this encounter (statuses as of 03/09/2023) Resolved Problems Problem Noted Date Diagnosed Date [...] 7.0% 03/01/2009 10/12/2014 Overview: Pt uses a medtronic Zenitum external insulin pump which requires the use of [employer] contour next test strips ICD-10 update of [...] as of this encounter (statuses as of 03/09/2023) Immunizations Name Administration Dates Next Due COVID-19 mRNA, LNP-s, No Pre serve, 2-Dose Series (Moderna) 06/13/2020,05/23/2020 COVID-19 mRNA, LNP-s, No Pre serve, 2-Dose Series (Pfizer) 02/21/2021 Pneumococcal Conjugate Vacc, 13 Valent (Prevnar) 05/22/2017 Pneumococcal Polysaccharide PPV23 (Pneumovax) 03/30/2019 SEASONAL INFLUENZA, PF, 6 M & Above, IM , (FLULAVAL or FLUZONE) 03/18/2021,02/23/2020,03/30/2019,03/01,04/01/2017 Seasonal Influenza, Quadriva lent Hd (Fluzone Hd) 03/09/2023,03/21/2022 Seasonal Influenza, Quadriva lent, No Preserve, IM 03/12/2016,04/05/2015 Seasonal Influenza, Split, I IV3, With Preserve, Inj 02/10/2014,02/16/2013,02/12/2012,03/11,01/31/2010,01/09/2009,02/28/2008 TDAP (age 10 and older)(Boostrix) 11/25/2018 TDAP [...] on file documented as of this encounter Patient Instructions * Patient Instructions* Erlinda Thrasher LPN - 03/09/2023 2:04 PM EST ~~PATIENT INSTRUCTIONS FOR FLU SHOT~~ Possible side effects of influenza vaccine, (flu shot), are usually mild and include: 1. Soreness or redness at injection site 2. Low grade fever 3. Body aches You may use Tylenol/Acetaminophen as needed for these symptoms. LET YOUR DOCTOR KNOW IMMEDIATELY IF YOU HAVE DIFFICULTY BREATHING OR SWALLOWING, EXPERIENCE ITCHINGOF FEET OR HANDS, HAVE SWELLING OF EYES, FACE OR INSIDE OF NOSE. documented in this encounter Progress Notes * Erlinda Thrasher LPN - 03/09/2023 2:03 PM EST PRE - ADMINISTRATION DOCUMENTATION Are you experiencing any cold symptoms or fever? No Have you had Guillain-Kimberly Syndrome (an illness that causes paralysis) within the last 6 weeks? No Have you had the flu shot in the past? YES Have you ever had a reaction to the flu shot? No Erlinda Thrasher LPN, 03/09/2023 2:03 PM Immunization Administration Documentation Time Out Procedure Performed: Yes Patient Identified (Ask Name/Date of ): Yes Does the patient have a fever greater than 101 degrees today? No Patient allergic to latex? No VFC Stock: No Immunization(s) verified: Yes, Immunization Name: Flu, VIS Sheet(s) given: Yes Verified Side and Site: Yes Verified Shot(s) with Parent(s)/Patient: Yes documented in this encounter Plan of Treatment Upcoming Encounters Date Type Department Care Team (Late st Contact Info) Description 03/09/2023 2:45 PM EST Office Visit Ophthalmology, [facility] [address] [place] [address] Felix Sanchez, DO [address] [place] [address] Arrived 03/10/2023 10:00 AM EST Office Visit Dermatology [facility] [address] [facility], [place] [address] Brooke Brannon PA-C [address] [facility] [address] 05/20/2023 8:00 AM EST Hospital Encounter OR [facility], Operating Room [facility] [address] [place] [phone] Zoltan Fall DO [address] [place] [phone] 05/20/2023 8:00 AM EST - 05/20/2023 8:25 AM EST Surgery OR [facility], Operating Room [facility] [address] [place] [phone] Zoltan Fall DO [address] [place] [id number] INJECTION TRANSFORAMINAL EPIDURAL LUMBAR OR SACRAL 11/06/2023 8:20 AM EDT Office Visit Family [facility] [address] [place] [address] Gold Zhang MD [address] [place] [address] Scheduled Procedures Name Priority Associated Diagnoses Date/Ti [...] this encounter Medical Devices Implanted Type Area Manager Event Device Identifier Shelf Expiration Date Model / Serial / Lot Clip Quick 2.8mm 230cm - [id number] Implanted:Qty: 1 on 07/31/2021 by Juan Jose Angulo MD at ENDOSCOPY [facility] Colon [employer] 12/02/2023 [id number] / [id number] documented as of this encounter Visit Diagnoses Diagnosis Need for prophylactic vaccination and inoculation against influenza- Primary Lumbar radiculopathy Thoracic or lumbosacral neuritis or radiculitis, unspecified documented in this encounter Care Teams Equity Structurer Relationship Specialty Start Date End Date Gold Zhang MD [address] [place] [address] PCP - General Family Medicine 08/02/20 documented as of this encounter
--- OUTSIDE RECORDS SUMMARY | 2023-03-29 16:45 | External Medical Summary | Summary of Care ---
Author Name Unknown Organization [facility] Address [address] [facility] [place] [address] Phone [phone] Care Team Providers Care Manager Lvn Name Role Phone Gold Zhang MD Primary Care Provider + Reason for Visit * Reason Onset Date Comments Advice 03/02/2023 Encounter Details Date Type Department Care Team (Late st Contact Info) Description 03/02/2023 Telephone Interventional Pain Center, [facility] [address] [place] [address] [place], [address] [place] [address] Advice Allergies Active Allergy Reactions Criticality Noted Date Comments Exenatide 01/22/2015 Dizzy, lightheaded and nausea Lisinopril Cough Low 06/22/2013 documented as of this encounter (statuses as of 03/02/2023) Medications Medication Sig Dispensed Refills Start Date [...] Each 3 07/06/2018 Active Insulin Infusion Pump (MINIMTimePoints 630G INSULIN PUMP) KIT Use as directed. 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 sees [facility] endo Dr Andrez Charles--has pump 07/23 [...] as of this encounter (statuses as of 03/02/2023) Resolved Problems Problem Noted Date Diagnosed Date [...] 03/01/2009 10/12/2014 Overview: Pt uses a medtronic minimed external insulin pump which requires the use [...] as of this encounter (statuses as of 03/02/2023) Immunizations Name Administration Dates Next Due COVID-19 [...] encounter Miscellaneous Notes * Addendum Note - Garo Ramirez DO - 03/02/2023 12:41 PM EDTAddended by: GARO RAMIREZ on: 03/02/2023 12:41 PM Modules accepted: Orders * Telephone Encounter - Garo Ramirez DO - 03/02/2023 12:39 PM EDT A second injection using a different technique (Right S-1 TF) could be considered if he wants to schedule with Dr. Fall. Order placed. * Telephone Encounter - Kenya Real OSA - 03/02/2023 9:23 AM EDT Patient calling into the office to report that he has not had any relief since his injection on 01/29. He is asking what his next steps would be- please advise. documented in this encounter Plan of Treatment Upcoming Encounters Date Type Department Care Team (Late st Contact Info) Description 03/09/2023 2:45 PM EST Office Visit Ophthalmology, [facility] [address] [place] [address] Felix Sanchez DO [address] [place] [address] 03/10/2023 10:00 AM EST Office Visit Dermatology [facility] [address] [place] [address] Brooke Brannon PA-C [address] [facility] [address] 11/06/2023 8:20 AM EDT Office Visit Family Practice [facility] [address] [place] [address] Gold Zhang MD [address] [place] [address] Scheduled Orders Name Type Priority Associated Diagnoses Orde r Schedule LUMBAR / SACRAL EPIDURAL, SINGLE LEVEL Procedures Routine Lumbar radicular pain Ordered: 03/02/2023 Scheduled Procedures Name Priority Associated Diagnoses Date/Ti me COLONOSCOPY FLEXIBLE PROXIMAL DIAGNOSTIC Recall History of colon polyps Health Maintenance Due Date Last Done Comments DXA Scan 1955 Hepatitis B (1 of 3 - Risk 3-dose series) 2016 B-12 11/09/2021 11/09/2020, 10/2018, 04/01/2017 Albumin/Creatinine Ratio 07/11/2022 022, 05/25/2020, 07/06/2018, Additional history exists HbA1c 08/29/2022 02/28/2022, 02/02 (Done elsewhere), 07/11/2021, Additional history exists COVID-19 Vaccine (4 - 2022-24 season) 2023 02/21/2021, 06/13/2020, 05/23/2020 Influenza Vaccine (FLU shot) (#1) 2023 03/21/2022, 03/18/2021, 02/23/2020, Additional history exists GFR 02/28/2023 02/28/2022, 07/02, 12/11/2020, Additional history exists Diabetic Foot Exam 07/12/2023 07/11/2022 (D one elsewhere), 05/06/2021, 01/10/2020, Additional history exists Diabetic Eye Exam 08/29/2023 08/28/2022, , 07/05/2021, Additional history exists Depression Screening 11/06/2023 11/05/2022 Pneumococcal Vaccine: 65+ Years (4 - PPSV23 or PCV20) 03/30/2024 03/30/2019, 05/22/2017, 04/12/2003 COLONOSCOPY-EVERY 3 YRS AGES 18-100 07/31/2024 07/31/2021, 07/31/2021, 06/03/2007 Lipid Panel 02/28/2027 02/28/2022, 05/05, 01/06/2020, Additional history exists DTaP,Tdap,and Td Vaccines (3 - Td or Tdap) 11/25/2028 11/25/2018, 07/23/2009, 05/24/1999 Cologuard Discontinued 07/06/2017 Zoster Vaccines Completed 05/06/2021, 07/0 05/2020, 12/24/2016 Colonoscopy Discontinued 07/31/2021, 07/04, 06/03/2007 Colorectal Cancer Screening Discontinued Fecal Occult Blood Test Discontinued GARDASIL-HPV IMMUNIZATION SERIES Aged Out No longer eligible based on patient's age to complete this topic MENINGOCOCCAL (MENACTRA/MENVEO) Aged Out No longer eligible based on patient's age to complete this topic Sigmoidoscopy Discontinued documented as of this encounter Medical Devices Implanted Type Area Artificial Limb Fitter Device Identifier Shelf Expiration Date Model / Serial / Lot Clip Quick 2.8mm 230cm - [id number] Implanted:Qty: 1 on 07/31/2021 by Juan Jose Angulo MD at ENDOSCOPY [facility] [employer] 12/02/2023 [id number] / [id number] documented as of this encounter Visit Diagnoses Diagnosis Lumbar radicular pain- Primary Thoracic or lumbosacral neuritis or radiculitis, unspecified documented in this encounter Care Teams Manager Lvn Relationship Specialty Start Date End Date Gold Zhang MD [address] [facility] [place] [address] PCP - General Family Medicine 08/02/20 documented as of this encounter
--- OUTSIDE RECORDS SUMMARY | 2023-03-29 16:45 | External Medical Summary | Summary of Care ---
Author Name Unknown Organization [facility] Address [address] [facility] [place] [address] Phone [phone] Care Team Providers Care Gas Appliance Repairer Name Role Phone Gold Zhang MD Primary Care Provider + Reason for Visit * Reason Comments Follow Up Follow up on AK's on scalp and face. Encounter Details Date Type Department Care Team (Late st Contact Info) Description 03/10/2023 10:00 AM EST Office Visit Dermatology [facility] [address] [place] [address] Brooke Brannon PA-C [address] [facility] [place] [address] Neoplasm of uncertain behavior of skin*; Actinic keratosis Allergies Active Allergy Reactions Criticality Noted Date Comments Exenatide 01/22/2015 Dizzy, lightheaded and nausea Lisinopril Cough Low 06/22/2013 documented as of this encounter (statuses as of 03/10/2023) Medications Medication Sig Dispensed Refills Start Date [...] Each 3 07/06/2018 Active Insulin Infusion Pump ([email or web address].ru 630G INSULIN PUMP) KIT Use as directed. 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 sees [facility] endo Dr Andrez Charles--has pump 07/23 colon [...] as of this encounter (statuses as of 03/10/2023) Resolved Problems Problem Noted Date Diagnosed Date [...] as of this encounter (statuses as of 03/10/2023) Immunizations Name Administration Dates Next Due COVID-19 [...] money to buy more. Never true 11/06/19 Within the past 12 months, t he [...] as of this encounter Progress Notes * Brooke Brannon PA-C - 03/10/2023 10:07 AM EST Nursing Notes: Kirstie Rodriguez LPN 03/10/23 0944 Signed Patient identified by name and date. Chief Complaint Patient presents with Follow Up Follow up on AK's on scalp and face. SUBJECTIVE: HPI: Tony Sheppard is a 67 year old male who is/ an established patient seen for follow-up actinickeratosis. Patient last visit on 12/02/22. Has dry patches on scalp and face. C/o some pain on lesions of back of scalp- gets caught on hat at work. Some bleeding from lesion R cheek. Pain of lesion on R ear. Pt s/p PDT September 2022 Hx of BCC L posterior shoulder 2019, BCC R cheek 2006 Hx of AK's s/p cryo and Efudex, Efudex to scalp and ears 09/2021- unsure of compliance with med in past Wears a straw hat in summer REVIEW OF SYSTEMS: See HPI- all other findings negative Constitutional: (-) fever, chills, sweats, weight loss Cardiovascular: (-) lower extremity edema Skin: (-) no rash or new or changing moles or skin lesions MEDICA TIONS: Current Outpatient Medications Medication Sig Dispense Refill ASPIRIN 81 MG PO TABS one tab by mouth daily 34 0 ONETOUCH ULTRA 2 W/DEVICE KIT Use as directed. 1 Kit 0 ONETOUCH ULTRASOFT LANCETS [facility] Use as directed. 300 Box 3 hydrocortisone 2.5%-clotrimazole 1% 1:1 Apply to corners of the lips twice daily as needed for flares. 30 g 2 Insulin Infusion Pump Supplies (STEFFI INFUSION SET 18" 6MM) MIS Use with insulin pump. Change every 1-2 days or as directed. ICD10: E11.9 30 Each 3 Insulin Infusion Pump Supplies (PARADIGM PUMP RESERVOIR 3ML) MIS Use every 1-2 days for insulin pump. Uses approximately 120 units/day. 50 Each 3 Insulin Infusion Pump (MINIMED 630G INSULIN PUMP) KIT Use as directed. 1 Kit 0 Glucose Blood (CONTOUR NEXT TEST) STR USE TO TEST BLOOD SUGAR UP TO 6 TIMES DAILY WITH MEDTRONIC INSULIN PUMP 600 Strip 3 Insulin Lispro 100 UNIT/ML Subcutaneous Solution (HumaLOG) USE FOR INSULIN PUMP (1 VIAL LASTS 3 DAYS) 300 mL 1 Insulin Lispro 100 UNIT/ML Injection Solution (Humalog) INJECT 200 UNITS (2 ML) SUBCUTANEOUSLY DAILY 90 DAYS VIA INSULIN PUMP Ozempic (0.25 or 0.5 MG/DOSE) 2 MG/1.5ML Solution Pen-injector (Semaglutide(0.25 or 0.5MG/DOS)) Inject 0.5 mg under the skin once a week. 1.5 mL 0 metFORMIN HCl ER 500 MG Oral Tablet Extended Release 24 Hour (Glucophage XR) TAKE 2 TABS TWICE A DAY Atorvastatin Calcium 40 MG Oral Tablet (Lipitor) TAKE 1 TABLET BY MOUTH EVERY DAY 90 Tablet 2 Metoprolol Succinate ER 50 MG Oral Tablet Extended Release 24 Hour (toPROL XL) TAKE 1 TABLET BY MOUTH EVERY DAY FOR BLOOD PRESSURE 90 Tablet 2 hydroCHLOROthiazide 25 MG Oral Tablet (Hydrodiuril) TAKE 1 TABLET BY MOUTH EVERY DAY 90 Tablet 2 Olmesartan Medoxomil 40 MG Oral Tablet (Benicar) TAKE 1 TABLET BY MOUTH EVERY DAY IN THE MORNING 90Tablet 1 Ozempic (1 MG/DOSE) 4 MG/3ML Subcutaneous Solution Pen-injector Inject 1 mg under the skin once a week. Invokana 300 MG Oral Tablet Take 1 Tablet by mouth in the morning. Current Facility-Administered Medications Medication Dose Route Frequency Provider Last Rate Last Admin bevaCIZumab (Avastin) inj 1.25 mg 1.25 mg Intravitreal PRN Felix Sanchez DO 1.25 mg at 01/13/23 1330 ROPivacaine (Naropin) inj 1.5 mg 1.5 mg Perineural PRN Felix Sanchez DO 1.5 mg at [facility] Y: Bydureon [exenatide] and Lisinopril OBJECTIVE: GEN: Healthy, alert, no distress, appears oriented, pleasant, and cooperative. PSYCH: Appropriate mood and affect, alert SKIN: Detailed exam of scalp, hair, face including lids and lips, ears, neck was completed and are within normal limits with the following exceptions: 1. [place] hyperkeratotic plaque R temporal scalp 2. [place] scaly papule R ear lobe 3. [place] papule R medial cheek 4. Hyperkeratotic plaque L parietal scalp 5. Numerous dry pink patches and keratotic plaques on vertex and crown of scalp ASSESSMENT/PLAN: 1. R temporal scalp, r/o nonmelanoma skin cancer vs hyperkeratotic actinic keratosis Tangential biopsy of the lesion noted above to establish and confirm diagnosis. The procedure, risks, benefits, alternatives and expected outcomes were discussed with the patient and verbal consent was obtained. Patient identified, procedure verified, site identified and verified. Confirmed immediately prior to procedure. Area prepped with alcohol and anesthetized with 0.5% lidocaine with epinephrine at 1:200,000 concentration. Biopsy of lesion performed. 20% AlCl and bandaging applied. Specimen sent to pathology. Patient instructed in routine post-op care. 2. R earlobe, r/o nonmelanoma skin cancer Tangential biopsy of the lesion noted above to establish and confirm diagnosis. The procedure, risks, benefits, alternatives and expected outcomes were discussed with the patient and verbal consent was obtained. Patient identified, procedure verified, site identified and verified. Confirmed immediately prior to procedure. Area prepped with alcohol and anesthetized with 0.5% lidocaine with epinephrine at 1:200,000 concentration. Biopsy of lesion performed. 20% AlCl and bandaging applied. Specimen sent to pathology. Patient instructed in routine post-op care. 3. R medial cheek, r/o nonmelanoma skin cancer Tangential biopsy of the lesion noted above to establish and confirm diagnosis. The procedure, risks, benefits, alternatives and expected outcomes were discussed with the patient and verbal consent was obtained. Patient identified, procedure verified, site identified and verified. Confirmed immediately prior to procedure. Area prepped with alcohol and anesthetized with 0.5% lidocaine with epinephrine at 1:200,000 concentration. Biopsy of lesion performed. 20% AlCl and bandaging applied. Specimen sent to pathology. Patient instructed in routine post-op care. 4. L parietal scalp, r/o nonmelanoma skin cancer vs hyperkeratotic actinic keratosis Tangential biopsy of the lesion noted above to establish and confirm diagnosis. The procedure, risks, benefits, alternatives and expected outcomes were discussed with the patient and verbal consent was obtained. Patient identified, procedure verified, site identified and verified. Confirmed immediately prior to procedure. Area prepped with alcohol and anesthetized with 0.5% lidocaine with epinephrine at 1:200,000 concentration. Biopsy of lesion performed. 20% AlCl and bandaging applied. Specimen sent to pathology. Patient instructed in routine post-op care. 5. Actinic keratoses of scalp Recommend topical Efudex 5% cream at bedtime daily for 2 weeks to be applied to scalp. Patient advised that local skin reactions such as erythema (redness), blistering, irritation, itch, burning, andpain is expected with use of this medication and that individuals with brisk inflammatory response often obtain the best clinical response. Patient to stop if significant ulceration or irritation develops and is intolerable. *hold on treatment for now. Advised pt to pick pack worker rx but further instruction to be given after pathresult final Patient alone today. Follow-up: PRN pending path Photos taken, patient consented to photos taken. Applicable photos (if any) and chart reviewed by Dr. Gold Reese The patient was encouraged to contact me with any further questions or concerns. Brooke Brannon PA-C 03/10/2023 10:07 AM documented in this encounter Nursing Notes * Kirstie Rodriguez LPN - 03/10/2023 9:43 AM EST Patient identified by name and date. Chief Complaint Patient presents with Follow Up Follow up on AK's on scalp and face. documented in this encounter Plan of Treatment Upcoming Encounters Date Type Department Care Team (Late st Contact Info) Description 04/23/2023 2:45 PM EST Office Visit Ophthalmology, [facility] [address] [place] [address] Felix Sanchez, DO [address] [place] [address] 05/20/2023 8:00 AM EST Hospital Encounter OR [facility], Operating Room [facility] [address] [place] [phone] Zoltan Fall, DO [address] [place] [address] 05/20/2023 8:00 AM EST - 05/20/2023 8:25 AM EST Surgery OR [facility], Operating Room [facility] [address] [place] [phone] Zoltan Fall, DO [address] [place] [phone] INJECTION TRANSFORAMINAL EPIDURAL LUMBAR OR SACRAL 11/06/2023 8:20 AM EDT Office Visit Family Practice [facility] [place] [address] [place] [address] Gold Zhang MD [address] [place] [address] Pending Results Name Type Priority Associated Diagnoses Date /Time SURGICAL PATHOLOGY Pathology Routine Neoplasm of uncertain behavior of skin 03/10/2023 10:27 AM EST Scheduled Procedures Name Priority Associated Diagnoses Date/Ti me INJECTION TRANSFORAMINAL EPIDURAL LUMBAR OR SACRAL Lumbar radiculopathy 05/20/2023 8:00 AM EST COLONOSCOPY FLEXIBLE PROXIMAL DIAGNOSTIC Recall History of colon polyps Health Maintenance Due Date Last Done Comments DXA Scan 1955 Hepatitis B (1 of 3 - Risk 3-dose series) 2016 B-12 11/09/2021 11/09/2020, 09/0 10/2018, 04/01/2017 Albumin/Creatinine Ratio 07/11/20222 022, 05/25/2020, 07/06/2018, Additional history exists HbA1c 08/29/2022 02/28/2022, 02/02 (Done elsewhere), 07/11/2021, Additional history exists COVID-19 Vaccine (4 - 2022- season) 2023 02/21/2021, 06/13/2020, 05/23/2020 [...] this encounter Medical Devices Implanted Type Area Digital Media Producer Device Identifier Shelf Expiration Date Model / Serial / Lot Clip Quick 2.8mm 230cm - [id number] Implanted:Qty: 1 on 07/31/2021 by Juan Jose Angulo MD at ENDOSCOPY [facility] [employer] 12/02/2023 [id number] / [id number] documented as of this encounter Procedures Procedure Name Priority Date/Time Associated Diagnosis Comments DERM IMAGE (SITE) Routine 03/10/2023 Actinic keratosis Neoplasm of uncertain behavior of skin documented in this encounter Results * DERM IMAGE (SITE) (03/10/2023) 03/10/2023 Brooke Brannon PA-C DIGITAL NIGEL TOGRAPHY documented in this encounter Visit Diagnoses Diagnosis Neoplasm of uncertain behavior of skin- Primary Actinic keratosis Lumbar radiculopathy Thoracic or lumbosacral neuritis or radiculitis, unspecified documented in this encounter Care Teams Gas Appliance Repairer Relationship Specialty Start Date End Date Gold Zhang MD [address] [facility] [place] [address] PCP - General Family Medicine 08/02/20 documented as of this encounter
--- OUTSIDE RECORDS SUMMARY | 2023-03-29 16:45 | External Medical Summary | Summary of Care ---
Author Name Unknown Organization [facility] Address [address] [facility] [place] [address] Phone [phone] Care Team Providers Care Balance Truer Name Role Phone Gold Zhang MD Primary Care Provider + Reason for Visit * Auth/Cert Specialty Diagnoses / Procedures Referred By Shayy dumont Referred To Contact Diagnoses Lumbar radiculopathy Lumbar radiculopathy [M54.16] Procedures INJECT DX/THER SUBSTANCE INTERLAMINAR LUMBAR/SACRAL W IMAGE GUIDE INJECTION SPINE LUMBAR OR SACRAL Referral ID Status Reason Start Date Expiration Date Visits Re quested Visits Authorized [id number] [phone] Encounter Details Date Type Department Care Team Description 01/29/2023 Hospital Encounter [facility], Operating Room [facility] [address] [place] [address] Eloy Santos, [address] [place] [address] Allergies Active Allergy Reactions Severity Noted Date Comments Exenatide 01/22/2015 Dizzy, lightheaded and nausea Lisinopril Cough Low 06/22/2013 documented as of this encounter (statuses as of 01/29/2023) Medications Medication Sig Dispensed Refills Start Date [...] Each 3 07/06/2018 Active Insulin Infusion Pump (Phokki 630G INSULIN PUMP) KIT Use as directed. 1 Kit 0 07/06/2018 Active Glucose Blood (CONTOUR NEXT TEST) STRP USE TO TEST BLOOD SUGAR UP TO 6 TIMES DAILY WITH Nimbus Cloud AppsTRONIC INSULIN PUMP 600 Strip 3 09/28/2019 Active [...] THE MORNING 90 Tablet 1 10/21/2022 Active Invokana 300 MG Oral Tablet Take 1 Tablet by mouth in the morning. 0 12/21/2022 Active documented as of this encounter (statuses as of 01/29/2023) Active Problems Problem Noted Date Vertigo 11/05/2022 Overview: intermittent positional vertigo that he has had almost all his life Arthritis of both hands 05/07/2022 History of 2019 novel coronavirus diseas e (COVID-19) 05/28/2021 Overview: 05/25 Well adult exam 11/01/2020 Overview: Ortho Dr Magana. sees [facility] endo Dr Andrez Charles--has pump [...] as of this encounter (statuses as of 01/29/2023) Resolved Problems Problem Noted Date Resolved Date [...] 7.0% 03/01/2009 10/12/2014 Overview: Pt uses a [employer] external insulin pump which requires the use of [employer] contour next test strips ICD-10 update of [...] as of this encounter (statuses as of 01/29/2023) Immunizations Name Administration Dates Next Due COVID-19 mRNA, LNP-s, No Pre serve, 2-Dose Series (Moderna) 06/13/2020,05/23/2020 COVID-19 mRNA, LNP-s, No Pre serve, 2-Dose Series (Pfizer) 02/21/2021 Pneumococcal Conjugate Vacc, 13 Valent (Prevnar) 05/22/2017 Pneumococcal Polysaccharide PPV23 (Pneumovax) 03/30/2019 Seasonal Influenza, PF, 6 mo ns & Above, IM , (Flulaval) 03/18/2021,02/23/2020,03/30/2019,03/01,04/01/2017 Seasonal Influenza, Quadriva lent Hd (Fluzone [...] on file documented as of this encounter Last Filed Vital Signs Vital Sign Reading Time Taken Comments Blood Pressure 142/80 01/29/2023 11:15 AM EDT Pulse 85 01/29/2023 11:15 AM EDT Temperature 36.4 C (97.5 F) 01/29/2023 11:15 AM E DT Respiratory Rate 18 01/29/2023 11:15 AM EDT Oxygen Saturation 97% 01/29/2023 11:15 AM EDT Inhaled Oxygen Concentration - - Weight 98.9 kg (218 lb) 01/29/2023 10:57 AM EDT Height 170.2 cm (5' 7") 01/29/2023 10:57 AM EDT Body Mass Index 34.14 01/29/2023 10:57 AM EDT documented in this encounter Discharge Instructions * Discharge Instr - AVS* Eloy Santos DO - 01/29/2023 11:13 AM EDT [facility] [address] [place] [address] Discharge Date: 01/29/2023 You may call [facility] at [phone] during business hours. For after-hours emergencies call 911. Your attending physician at the time of your discharge was: [facility] DO [address] [facility] [place] [address] The information below provides you with the instructions and the list of medications you need to betaking following discharge from the hospital. If you have any questions, please ask before leaving.Please carry this letter with you when you see your doctor in the clinic. Diet: Resume your normal diet If you are diabetic, follow your blood sugars closely for next 2-3 days as they are likely to be elevated. If you are having difficulty controlling your blood sugars call your family doctor or the physician that treats your diabetes. Activity: Do not engage in strenuous activity today Resume your normal activities tomorrow Do not soak in water for 24 hours. No swimming, hot tub or bath but showering is allowed. Do not use heat on the injection site for 24 hours. If uncomfortable ice may be helpful. Some injections may make your arms or legs weak for a few hours. Be extremely careful when walking or changing positions that you do not fall. Have someone assist you for the next 6 hours. If weakness or numbness becomes progressive CALL IMMEDIATELY or GO TO THE NEAREST EMERGENCY ROOM Keep a diary of your pain until seen in the office to help us determine how effective the injectionwas Do not restart physical therapy or chiropractic manipulation until 48 hours after your injection Call : If weakness or numbness suddenly becomes worse or become progressive If the injection site becomes red, swollen, warm to the touch, begins to bleed or drain fluid, or is excessively painful. If you have any questions Medications: Resume all the medications you were taking prior to your injection. Resume your anticoagulants tomorrow unless otherwise instructed by your family physician, [employer] consultant or the anticoagulation clinic. Additional Instructions: Driving: . Date you may return to work or school: Follow Up: Call [phone] in 4 weeks. documented in this encounter Progress Notes * Eloy Santos DO - 01/29/2023 11:13 AM EDT [facility] [address] [address] OUTPATIENT SURGERY DISCHARGE SUMMARY NOTE Name: Tony Sheppard Location: OR [facility]/OR Date: 01/29/2023 Time: 11:13 AM Surgery Date: 01/29/2023 Procedure: Procedure(s): INJECTION SPINE LUMBAR OR SACRAL No laterality found for procedure #1 Surgeon: Surgeon(s): Eloy Santos DO Discharge Diagnosis: Lumbar radicular pain After examination of this patient, I have determined he is ready for discharge to home when the patient meets criteria. Discharge instructions were given to the patient. documented in this encounter H&P Notes * Eloy Santos, DO - 01/29/2023 6:48 AM EDT Interventional Pain Pre-Procedure Assessment Name:Tony Sheppard Date:01/29/2023 Time:6:48 AM Procedure(s): Caudal epidural steroid injection Diagnosis: Lumbar radicular pain Pre-Procedure Assessment: Prior to the procedure, the patient was identified. The patient's history, medications and allergies were reviewed . The patient is competent. The risks and benefits of the proposed procedure and theplanned sedation were discussed with the patient. All questions were answered and informed consent for the procedure was obtained. Prior to Admission medications Medication Sig Last Dose Discont. Invokana 300 MG Oral Tablet Take 1 Tablet by mouth in the morning. Ozempic (1 MG/DOSE) 4 MG/3ML Subcutaneous Solution Pen-injector Inject 1 mg under the skin once a week. Olmesartan Medoxomil 40 MG Oral Tablet (Benicar) TAKE 1 TABLET BY MOUTH EVERY DAY IN THE MORNING Atorvastatin Calcium 40 MG Oral Tablet (Lipitor) TAKE 1 TABLET BY MOUTH EVERY DAY hydroCHLOROthiazide 25 MG Oral Tablet (Hydrodiuril) TAKE 1 TABLET BY MOUTH EVERY DAY Metoprolol Succinate ER 50 MG Oral Tablet Extended Release 24 Hour (toPROL XL) TAKE 1 TABLET BY MOUTH EVERY DAY FOR BLOOD PRESSURE metFORMIN HCl ER 500 MG Oral Tablet Extended Release 24 Hour (Glucophage XR) TAKE 2 TABS TWICE A DAY Ozempic (0.25 or 0.5 MG/DOSE) 2 MG/1.5ML Solution Pen-injector (Semaglutide(0.25 or 0.5MG/DOS)) Inject 0.5 mg under the skin once a week. Insulin Lispro 100 UNIT/ML Injection Solution (Humalog) INJECT 200 UNITS (2 ML) SUBCUTANEOUSLY DAILY 90 DAYS VIA INSULIN PUMP Insulin Lispro 100 UNIT/ML Subcutaneous Solution (HumaLOG) USE FOR INSULIN PUMP (1 VIAL LASTS 3 DAYS) Glucose Blood (CONTOUR NEXT TEST) STRP USE TO TEST BLOOD SUGAR UP TO 6 TIMES DAILY WITH Nimbus Cloud AppsTRONIC INSULIN PUMP Insulin Infusion Pump (MINIMAirstone 630G INSULIN PUMP) KIT Use as directed. Insulin Infusion Pump Supplies (STEFFI INFUSION SET 18" 6MM) MISC Use with insulin pump. Change every 1-2 days or as directed. ICD10: E11.9 Insulin Infusion Pump Supplies (PARADIGM PUMP RESERVOIR 3ML) MISC Use every 1-2 days for insulin pump. Uses approximately 120 units/day. hydrocortisone 2.5%-clotrimazole 1% 1:1 Apply to corners of the lips twice daily as needed for flares. ONETOUCH ULTRA 2 W/DEVICE KIT Use as directed. ONETOUCH ULTRASOFT LANCETS MISC Use as directed. ASPIRIN 81 MG PO TABS one tab by mouth daily Review of patient's allergies indicates: Allergen Reactions Bydureon [Exenatide] Dizzy, lightheaded and nausea Lisinopril Cough There were no vitals taken for this visit. Physical Exam: Mental Status Examination: alert and oriented. Airway Examination: normal oropharyngeal airway and neck mobility. Respiratory Examination: clear to auscultation. CV Examination: normal. ASA Grade: II - A patient with mild systemic disease. After reviewing the risks and benefits, the patient was deemed in satisfactory condition to undergothe procedure. The anesthesia plan was to use local anesthesia. Eloy Santos DO 01/29/2023 documented in this encounter Nursing Notes * Danielle Duenas RN - 01/29/2023 11:17 AM EDT Patient tolerated pain injection well. Ready for discharge to home. * Mila Mixon RN - 01/29/2023 11:11 AM EDT Band aid applied to area. Patient transferred to PACU 11 via wheelchair * Mila Mixon RN - 01/29/2023 11:10 AM EDT Band aid applied to area. Patient transferred to PACU 11 via wheelchair * Mila Mixon RN - 01/29/2023 11:08 AM EDT Patient tolerating pain management injection well. documented in this encounter OR Notes * OR Surgeon - Eloy Santos DO - 01/29/2023 11:13 AM EDT OPERATIVE RECORD OR [facility], Operating Room [facility] [address] [facility] [place] [address] Tony Sheppard : 1955 DOS: 01/29/2023 SERVICE: INTERVENTIONAL PAIN MANAGEMENT PRE-OP DIAGNOSIS: Lumbar radicular pain. POST-OP DIAGNOSIS: Same. SURGEON: Eloy Santos DO. ASSISTANTS: None. ANESTHESIA: 2 cubic centimeters of 1% lidocaine. OPERATION: Caudal epidural steroid injection. FINDINGS: No intraoperative findings. ESTIMATED BLOOD LOSS: None. DRAINS: There were no drains placed. FLUIDS: No IV fluids. URINE OUTPUT: None. SPECIMEN: No specimens collected. COMPLICATIONS: None. CONDITION: Good. INDICATIONS AND HISTORY: Tony Sheppard presents in anticipation of undergoing epidural steroid injection for persistent low back and lower extremity radicular pain refractory to conservative treatment. The injection procedure was reviewed, as well as the risks of bleeding, infection, headache, nerve or spinal cord injury, worsening pain, or steroid side effects. DESCRIPTION OF OPERATION: After obtaining appropriate informed consent, Tony Sheppard was taken tothe fluoroscopy suite, placed in a prone position. Time-out was taken to properly identify the patient and procedure, and the sacral hiatus was identified and the overlying skin sterilely prepped with ChloraPrep and draped. 1% lidocaine, 2 cubic centimeters, was infiltrated in skin and subcutaneoustissue and a #25 gauge, 3-1/2 inch spinal needle was directed with fluoroscopic guidance through the sacral hiatus, into the sacral canal without pain or paresthesia. After negative aspiration for blood or cerebrospinal fluid, Omnipaque 180, 0.5 cubic centimeter was easily injected, showed appropriate epidural spread in P-A and lateral fluoroscopic views. There was no evidence of intravascular orsubarachnoid spread of contrast. Kenalog 40 mg with 3 cubic centimeters of preservative-free normalsaline was slowly and easily injected without pain. There was appropriate washout of contrast. The needle was removed. Patient tolerated procedure well. Tony Sheppard will be re-evaluated by phone in approximately 4 weeks, and was given appropriate discharge instructions following postprocedure monitoring. Eloy Santos DO 01/29/2023 11:13 AM documented in this encounter Plan of Treatment Upcoming Encounters Date Type Specialty Care Team Description 03/09/2023 Office Visit Ophthalmology Felix Sanchez DO [address] [place] [address] 11/06/2023 Office Visit Family Medicine Gold Zhang MD [address] [place] [address] Scheduled Procedures Name Priority Associated Diagnoses Date/Ti me INJECTION SPINE LUMBAR OR SACRAL Lumbar radiculopathy 01/29/2023 11:07 AM EDT COLONOSCOPY FLEXIBLE PROXIMAL DIAGNOSTIC Recall History of colon polyps Health Maintenance Due Date Last Done Comments DXA Scan 1955 COVID-19 Vaccine (4 - Mixed Product risk series) 04/18/2021 02/21/2021, 06/13/2020, 05/23/2020 B-12 11/09/2021 11/09/2020, 09/0 10/2018, 04/01/2017 Albumin/Creatinine Ratio 07/11/2022 022, 05/25/2020, [...] Cologuard Discontinued 07/06/2017 Zoster Vaccines Completed 05/06/2021, 0705/2020, 12/24/2016 Colonoscopy Discontinued 07/31/2021, 07/04, 06/03/2007 Colorectal [...] this encounter Medical Devices Implanted Type Area Vest Finisher Device Identifier Shelf Expiration Date Model / Serial / Lot Clip Quick 2.8mm 230cm - [id number] Implanted:Qty: 1 on 07/31/2021 by Juan Jose Angulo MD at ENDOSCOPY [facility] Colon [employer] 12/02/2023 [id number] / [id number] documented as of this encounter Procedures Procedure Name Priority Date/Time Associated Diagnosis Comments FLUORO INTERVENTIONAL PAIN PROCEDURE NONBILLABLE Routine 01/29/2023 11:14 AM EDT documented in this encounter Results * FLUORO INTERVENTIONAL PAIN PROCEDURE NONBILLABLE (01/29/2023 11:14 AM EDT) Narrative Scheduling, Silent - 01/29/2023 11:15 AM EDT This procedure will not be read by a Radiologist. Please see operative note. Eloy Santos DO RAD FLUOROSCOPY documented in this encounter Administered Medications Inactive Administered Medications - up to 3 most recent administrations Medication Order MAR Action Action Date Dose Rate Site Iohexol (Omnipaque 180) inj 1 mL 1 mL, Injection, ONCE, On On[place] 01/29/23 at 1130, For 1 dose Given 01/29/2023 11:09 AM EDT 1 mL lidocaine 1 % inj 20 mg 20 mg (2 mL), Subcutaneous, ONCE, On Onelia 01/29/23 at 1130, For 1 dose Given 01/29/2023 11:08 AM EDT 20 mg Other-Specify Triamcinolone Acetonide (Kenalog) 40 MG/ML inj 40 mg 40 mg, Injection, ONCE, On Onelia 01/29/23 at 1130, For 1 dose Given 01/29/2023 11:09 AM EDT 40 mg documented in this encounter Active and Recently Administered Medications Times are shown in EDT. Scheduled Medication Order 01/27/2023 01/28/2023 01/29/2023 Iohexol (Omnipaque 180) inj 1 mL (COMPLETED) 1 mL, Injection, ONCE, On Onelia 01/29/23 at 1130, For 1 dose 1109 (Given - Provid er: Mila Mixon RN) lidocaine 1 % inj 20 mg (COMPLETED) 20 mg (2 mL), Subcutaneous, ONCE, On Onelia 01/29/23 at 1130, For 1 dose 1108 (Given - Provid er: Mila Mixon RN) Triamcinolone Acetonide (Kenalog) 40 MG/ML inj 40 mg (COMPLETED) 40 mg, Injection, ONCE, On Onelia 01/29/23 at 1130, For 1 dose 1109 (Given - Provid er: Mila Mixon RN) documented in this encounter Care Teams Balance Truer Relationship Specialty Start Date End Date Gold Zhang MD [address] [place] [address] PCP - General Family Medicine 08/02/20 documented as of this encounter
--- OUTSIDE RECORDS SUMMARY | 2023-03-29 16:45 | External Medical Summary | Summary of Care ---
Author Name Unknown Organization [facility] Address [address] [facility] [place] [address] Phone [phone] Care Team Providers Care Grill Associate Name Role Phone Gold Zhang MD Primary Care Provider + Reason for Referral * Evaluate & Treat - Unlimited Visits (Within 10 days (routine)) - Pending Review Specialty Diagnoses / Procedures Referred By Shayy dumont Referred To Contact Dermatology Diagnoses BCC (basal cell carcinoma), scalp/neck Brooke Huerta PA-C [address] [place] [address] Referral ID Status Reason Start Date Expiration Date Visits Requested Visits Authorized [id number] Pending Review Specialty Services Required 3 999 [...] Encounter Details Date Type Department Care Team ([facility] Contact Info) Description 03/18/2023 Telephone Dermatology [facility] [address] [facility] [place] [address] Brooke Huerta PA-C [address] [facility] [place] [address] Test Results Biopsy Allergies Active Allergy Reactions [...] Each 3 07/06/2018 Active Insulin Infusion Pump (MINIMPunch [employer] 630G INSULIN PUMP) KIT Use as directed. 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 sees [facility] endo Dr Andrez Charles--has pump 07/23 colon [...] 7.0% 03/01/2009 10/12/2014 Overview: Pt uses a [employer] external insulin pump which requires the use [...] 04/23/2023 2:45 PM EST Office Visit Ophthalmology, [facility] [address] [place] [address] Felix Sanchez, DO [address] [place] [address] 05/20/2023 8:00 AM EST Hospital Encounter OR [facility], Operating Room [facility] [address] [place] [address] Zoltan Fall, [address] [place] [address] 05/20/2023 8:00 AM EST - 05/20/2023 8:25 AM EST Surgery OR [facility], Operating Room [facility] [address] [place] [id number] Zoltan Fall, [address] [place] [address] INJECTION TRANSFORAMINAL EPIDURAL LUMBAR OR SACRAL 07/17/2023 9:40 AM EDT [facility] [address] [facility] [place] [address] Brooke Huerta PA-C [address] [facility] [place] [address] 11/06/2023 8:20 AM EDT Office Visit Family Practice [facility] [address] [place] [address] Gold Zhang MD [address] [place] [address] Scheduled Procedures Name Priority Associated Diagnoses Date/Ti [...] this encounter Medical Devices Implanted Type Area Flipping Machine Operator Device Identifier Shelf Expiration Date Model / Serial / Lot Clip Quick 2.8mm 230cm - [id number] Implanted:Qty: 1 on 07/31/2021 by Juan Jose Angulo MD at ENDOSCOPY [facility] Colon [employer] 12/02/2023 [id number] / [id number] documented as of this encounter Visit Diagnoses Diagnosis BCC (basal cell carcinoma), scalp/neck- Primary Basal cell carcinoma of scalp and skin of neck Lumbar radiculopathy Thoracic or lumbosacral neuritis or radiculitis, unspecified documented in this encounter Care Teams Grill Associate Relationship Specialty Start Date End Date Gold Zhang MD [address] [facility] [place] [address] PCP - General Family Medicine 08/02/20 documented as of this encounter
--- OUTSIDE RECORDS SUMMARY | 2023-03-29 16:45 | External Medical Summary | Summary of Care ---
Author Name Unknown Organization [facility] Address [address] [facility] [place] [address] Phone [phone] Care Team Providers Care Shell Machine Operator Name Role Phone Gold Zhang MD Primary Care Provider + Reason for Visit * Reason Comments Follow Up 6-8 week Dilation feb. Pt states " Vision is not bad" notes floaters still * Precert (Within 10 days (routine)) - Authorized Specialty Diagnoses / Procedures Referred By Shayy dumont Referred To Contact Ophthalmology Diagnoses Type 2 diabetes mellitus with proliferative diabetic retinopathy with macular edema, right eye (HCC) Procedures INECTION,BEVACIZUMAB, 10 MG LA INTRAVITREAL NJX PHARMACOLOGIC AGT SPX Felix Sanchez DO [address] [place] [address] Referral ID Status Reason Start Date Expiration Date V isits Requested Visits Authorized [id number] Authorized Precert 04/30/2021 05/03/2099 99 [phone] Encounter Details Date Type Department Care Team (Late st Contact Info) Description 03/09/2023 2:45 PM EST Office Visit Ophthalmology, [facility] [address] [place] [address] Felix Sanchez DO [address] [place] [address] 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, unspecified whether chcf insulin use (HCC)* Allergies Active Allergy Reactions Criticality Noted Date [...] Each 3 07/06/2018 Active Insulin Infusion Pump (MINIM[employer]Net Communications 630G INSULIN PUMP) KIT Use as directed. 1 Kit 0 07/06/2018 Active Glucose Blood (CONTOUR NEXT TEST) STRP USE TO TEST BLOOD SUGAR UP TO 6 TIMES DAILY WITH X-Factor Communications HoldingsTRONIC INSULIN PUMP 600 Strip 3 09/28/2019 Active [...] right eye and macular edema, unspecified whether chcf insulin use (HCC) 1.25 mg IZ PRN 11/26/2022 11/26/2023 Active ROPivacaine (Naropin) inj 1.5 mgIndications: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, unspecified whether chcf insulin use (HCC) 1.5 mg PERINEURAL PRN [...] 11/01/2020 Overview: Ortho Dr Magana. sees [facility] endo Dr Andrez Charles--has pump 07/23 colon [...] 7.0% 03/01/2009 10/12/2014 Overview: Pt uses a Shop[employer]tronic Locai external insulin pump which requires the use [...] Progress Notes * Felix Sanchez DO - 03/09/2023 2:45 PM EST [facility] [place] Nursing notes reviewed. Mood and affect: normal HPI: Tony Sheppard is a 67 year old male who presents for DR, old CRVO OD. No other eye complaints. Denies significant pain. Base Eye Exam Visual Acuity (Snellen - Linear) Right Left Dist cc 20/60 -1 20/25 -1 Dist ph cc 20/30 -2 Correction: Glasses Tonometry (Tonopen, 2:49 PM) Right Left Pressure 12 10 Pupils Light Shape React APD Right 4 Round Brisk None Left 4 Round Brisk None Visual Huerta (Counting fingers) Right Left Full Full Extraocular Movement Right Left Full Full Neuro/Psych Oriented x3: Yes Mood/Affect: Normal Dilation Both eyes: 0.5% Proparacaine, 2.5% Phenylephrine, 1.0% Mydriacyl @ 2:49 PM EXTERNAL: The ocular adnexae are unremarkable. SLE: Lids/Lashes: wnl OU Conjunctiva/Sclera: quiet OU Cornea: clear OU Anterior Chamber: deep and quiet OU Iris: trace rubeosis at pupillary margins OD--resolved ; no NVI OS Lens: 1+NSC OU Dilated [...] wnl, no csme vessels: av nicking midperiphery: +case worker periphery: no RT/RD OCT Interpretation: OD: temporal thinning, central fovea clear, +trace ERM, no PVD - STABLE, prior improved, prior STABLE, prior STABLE, prior STABLE OS: no CME/SRFluid, no PVD - STABLE, prior STABLE, prior STABLE, prior STABLE, prior STABLE Fundus Photo Interpretation - 02/10/17: OD: +regressed NVD, +case worker, old FML OS: n/a A/P: 1. Diabetic retinopathy OU PDR OD: -s/p PRP 07/30/16 and 08/27/16 -s/p fill-in PRP 01/21/21 -s/p Avastin for NVD (05/13/21, 12/25/20, 09-18-20, 02-02-20, 03-23-19 for VHs, 12-29-18....09-29-18, 07-23-2017, 05/20/2017, 12-30-16, 06/24/16) -went 19 weeks in past -persistent NVD w/ mild VH 05/13/21 -multiple VH OD 2021 -Avastin 01/13/23, 05/26/22, 04/07/22, 09/26/21 -7 weeks; has been gone 6 months -new VH 11/26/2022 -t/c add PRP [...] Dilate and OCT OU Felix Sanchez, DO 1123 CC: Danielito Mariee, OD PCP: Azael Stuart MD documented in this encounter Nursing Notes * Cole Pulliam COA - 03/09/2023 2:40 PM EST Tony Sheppard is a 67 year old year old male who presents for 6-8 week Dilation with OCT. Last Office Visit: 01/13/2023 (in office), Visit date not found (telemedicine) Patient currently states " Vision is not bad" notes floaters still Are you diabetic? Yes. Do you check [...] 03/10/2023 10:00 AM EST Office Visit Dermatology [facility] [address] [place] [address] Brooke Brannon PA-C [address] [facility] [place] [address] 04/23/2023 2:45 PM EST Office Visit Ophthalmology, [facility] [address] [facility] [place] [address] Felix Sanchez DO [address] [place], [place] [address] 05/20/2023 8:00 AM EST Hospital Encounter OR [facility], Operating Room [facility] [address] [place] [address] Zoltan Fall, DO [address] [place] [id number] 05/20/2023 8:00 AM EST - 05/20/2023 8:25 AM EST Surgery OR [facility], Operating Room [facility] [address] [place] [phone] Zoltan Fall, DO [address] [place] [address] INJECTION TRANSFORAMINAL EPIDURAL LUMBAR OR SACRAL 11/06/2023 8:20 AM EDT Office Visit Family Practice [facility] [address] [place] [address] Gold Zhang MD [address] [place] [address] Scheduled Orders Name Type Priority Associated Diagnoses Orde r Schedule RETINA SCAN DIAGNOSTIC IMAGE, POSTERIOR Procedures Routine 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, unspecified whether roasterman insulin use (HCC) Ordered: 03/09/2023 Scheduled Procedures Name Priority Associated Diagnoses Date/Ti [...] this encounter Medical Devices Implanted Type Area Finish Painter Device Identifier Shelf Expiration Date Model / Serial / Lot Clip Quick 2.8mm 230cm - [id number] Implanted:Qty: 1 on 07/31/2021 by Juan Jose Angulo MD at ENDOSCOPY [facility] Colon [employer] 12/02/2023 [id number] / [id number] documented as of this encounter Visit Diagnoses Diagnosis 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 [place] [address] PCP - General Family Medicine 08/02/20 documented as of this encounter
--- OUTSIDE RECORDS SUMMARY | 2023-03-29 16:45 | External Medical Summary | Summary of Care ---
Author Name Unknown Organization [facility] Address [address] [place] [address] Phone [phone] Care Team Providers Care Vba Programmer Name Role Phone Gold Zhang MD Primary Care Provider + Reason for Visit * Reason Comments Back Pain * Evaluate & Treat - Unlimited Visits (Within 10 days (routine)) - Pending Review Specialty Diagnoses / Procedures Referred By Shayy dumont Referred To Contact Pain Management / Pain Medicine Diagnoses Chronic right-sided low back pain with right-sided sciatica Miguelangel Navarro CRNP [address] [place] [address] Referral ID Status Reason Start Date Expiration Date Visits Requested Visits Authorized [id number] Pending Review Specialty Services Required 09/08/[phone] Encounter Details Date Type Department Care Team Description 12/25/2022 Office Visit Interventional Pain Center, [facility] [address] [place] [address] Cousins, Eloy Forrest, [address] [place] [address] Lumbar radicular pain*; Herniated intervertebral disc of lumbar spine Allergies Active Allergy Reactions Severity Noted Date Comments Exenatide 01/22/2015 Dizzy, lightheaded and nausea Lisinopril Cough Low 06/22/2013 documented as of this encounter (statuses as of 12/25/2022) Medications Medication Sig Dispensed Refills Start Date [...] Each 3 07/06/2018 Active Insulin Infusion Pump (MINIMIkonisys 630G INSULIN PUMP) KIT Use as directed. 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, unspecified whether exterminator helper termite insulin use (HCC) 1.25 mg IZ PRN 11/26/2022 11/26/2023 Active ROPivacaine (Naropin) inj 1.5 mgIndications: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, unspecified whether exterminator helper termite insulin use (HCC) 1.5 mg PERINEURAL PRN 11/26/2022 11/26/2023 Active documented as of this encounter (statuses as of 12/25/2022) Active Problems Problem Noted Date Vertigo 11/05/2022 [...] as of this encounter (statuses as of 12/25/2022) Resolved Problems Problem Noted Date Resolved Date [...] 03/01/2009 10/12/2014 Overview: Pt uses a medtronic Start[employer] Quest external insulin pump which requires the use [...] as of this encounter (statuses as of 12/25/2022) Immunizations Name Administration Dates Next Due COVID-19 [...] as of this encounter Progress Notes * Eloy Clayton Cousins, DO - 12/25/2022 2:17 PM EDT GENERAL HISTORY & PHYSICAL EXAMINATION - Anesthesia and Pain Service Name: Tony Sheppard Location: [facility] REFERRING PHYSICIAN: HARESH Farmer Thank you for referring Tony Sheppard. CHIEF COMPLAINT: Low back/right leg pain HPI: Tony Sheppard is a 67 year old male who presents for consultation at the request of Dot HUTSON, regarding a greater than 1 year history of persistent pain in the low back with radiation the right buttock posterior thigh and calf. He does get some numbness and tingling into the dorsal lateral aspect of the right foot. He denies preceding trauma or other initiating event. There is no motor weakness or bowel bladder dysfunction. Symptoms much worse with prolonged sitting or driving. He was placed in physical therapy for 6 weeks although this seem to aggravate his symptoms significantly. He did not note significant improvement use of nonsteroidal anti-inflammatory agents or Tylenol. He generally avoids oral steroids in light of his diabetes. 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 Unfortunately the current pain does interfere with his activities and he has had to limit his schedule. In light of the persistence of back with lower extremity radicular pain despite conservative treatment, he did undergo MRI evaluation lumbar spine which I reviewed with him today. PAST MEDICAL HISTORY: Past Medical History: Diagnosis Date Background diabetic retinopathy(362.01) Retinopathy, Diabetic DM type 2, goal A1c below 7 Diabetes Type II, Controlled History of 2019 novel coronavirus disease (COVID-19) 05/28/202105/25 HTN, goal below 140/90 Hypertension Benign INFORMATION CRVO OD Microalbuminuria Tooth pain Unspecified malignant neoplasm of skin, site unspecified Skin Vertigo 11/05/2022 intermittent positional vertigo that he has had almost all his life Past Medical History - Pertinent Findings: PAST SURGICAL HISTORY: Past Surgical History: Procedure Laterality Date COLONOSCOPY 06/03/2007 Negative- repeat in 10 years COLONOSCOPY, DIAGNOSTIC (RECTUM) 07/31/2021 adenomatous & hyperplastic polyps, diverticulosis, repeat 3 yrs / COLONOSCOPY FLEXIBLE PROXIMALDIAGNOSTIC performed by Juan Jose Angulo MD at ENDOSCOPY [facility] INFORMATION Right AVASTIN OD CONSENT SIGNED, Dr. Sanchez/Earle (Exp 12-25-2021) INJECTION OF EYE DRUG Right 04/16/2015 Avastin OD #1 Dr Means (consent) INJECTION OF EYE DRUG Right 06/24/2016 # 2 Avastin OD, INJECTION OF EYE DRUG Right 12/30/2016 # 3 Avastin OD; Dr. Sanchez INJECTION OF EYE DRUG Right 05/20/2017 # 4 Avastin OD, Dr. Sanchez INJECTION OF EYE DRUG Right 07/23/2017 # 5 Avastin OD, Dr. Sanchez INJECTION OF EYE DRUG Right 09/29/2018 # 6 Avastin OD, Dr. Sanchez INJECTION OF EYE DRUG Right 12/29/2018 # 7 Avastin OD, Dr. Sanchez INJECTION OF EYE DRUG Right 03/23/2019 # 8 Avastin OD, Dr. Sanchez INJECTION OF EYE DRUG Right 02/02/2020 # 9 Avastin OD, INJECTION OF EYE DRUG Right 09/18/2020 # 10 Avastin OD, Dr. Sanchez INJECTION OF EYE DRUG Right 12/25/2020 # 11 Avastin OD, Dr. Sanchez INJECTION OF EYE DRUG Right 05/13/2021 # 12 Avastin OD, Dr. Sanchez INJECTION OF EYE DRUG Right 09/26/2021 # 13 Avastin OD, Dr. Sanchez INJECTION OF EYE DRUG Right 04/07/2022 #14 Avastin OD Laura INJECTION OF EYE DRUG Right 05/26/2022 #15 Avastin OD; Laura INJECTION OF EYE DRUG Right 11/26/2022 # 16 Avastin OD, Dr. Sanchez LASER SURGERY OF INNER EYE STRANDS Right 07/30/2016 Laser Procedure OD; Dr Sanchez LASER SURGERY OF INNER EYE STRANDS Right 08/27/2016 Laser Procedure OD; Dr Laura BERMUDEZ ORDER ([facility] ONLY) Right 12/14/2015-12/13/2016 AVASTIN CONSENT OD SIGNED; DR LAURA BERMUDEZ ORDER ([facility] ONLY) Right 12/30/2016-12/30/2017 AVASTIN CONSENT OD SIGNED; DR LAURA BERMUDEZ ORDER ([facility] ONLY) Right 12/16/2017-12/16/2018 AVASTIN CONSENT OD SIGNED; DR LAURA ROSAS ([facility] ONLY) ACT 112 FORM SIGNED; DR LAURA BERMUDEZ ORDER ([facility] ONLY) Right 12/29/2018-12/30/2019 AVASTIN CONSENT OD SIGNED; DR LAURA BERMUDEZ ORDER ([facility] ONLY) Right 12/28/2019-12/27/2020 AVASTIN OD CONSENT SIGNED, Dr. Sanchez OTHER AVASTIN OU CONSENT SIGNED Dr. Sanchez/Earle ( Exp 01-07-2023) REMOVE TONSILS & ADENOIDS, UNDER 12 age 11 TREATMENT OF EXTENSIVE RETINOPATHY, PHOTOCOAGULATION Laser Photocoagulation [facility] TREATMENT OF EXTENSIVE RETINOPATHY, PHOTOCOAGULATION Right 01/21/2021 PRP OD, Dr. Sanchez FAMILY HISTORY: Family History Problem Relation Age of Onset Heart Disorder Mother Not in touch. unsure family hx. CAD CABG Thyroid Disorder Mother Heart Disorder Father age 70 [place] Neurological Disorder Sister Not in touch. MS Other (not in touch) Sister Other (car crash) Brother 17 Diabetes Grandmother (Maternal) Cancer None Eye Problems None Denies family hx of AMD, RD, glaucoma, blindness Stroke None Family History - Pertinent Findings: SOCIAL HISTORY: Social History Tobacco Use Smoking status: Never Smokeless tobacco: Never Vaping Use Vaping Use: Never used Substance Use Topics Alcohol use: Yes Comment: 2-4 beers/month Drug use: No CURRENT MEDICATIONS: Note that discontinued and completed medications (per the MAR) continue to display for 24 hours. Ordered medications to be given in the future also display. Current Outpatient Medications Medication Sig Dispense Refill ASPIRIN 81 MG PO TABS one tab by mouth daily 34 0 Insulin Infusion Pump Supplies (STEFFI INFUSION SET 18" 6MM) MISC Use with insulin pump. Change every 1-2 days or as directed. ICD10: E11.9 30 Each 3 Insulin Infusion Pump Supplies (PARADIGM PUMP RESERVOIR 3ML) MISC Use every 1-2 days for insulin pump. Uses approximately 120 units/day. 50 Each 3 Insulin Infusion Pump (MINIMIkonisys 630G INSULIN PUMP) KIT Use as directed. 1 Kit 0 Insulin Lispro 100 UNIT/ML Subcutaneous Solution (HumaLOG) [...] EVERY DAY IN THE MORNING 90Tablet 1 TOMI Environmental SolutionsTOUCH ULTRA 2 W/DEVICE KIT Use as directed. 1 Kit 0 ONETOUCH ULTRASOFT LANCETS MIS Use as directed. 300 Box 3 hydrocortisone 2.5%-clotrimazole 1% 1:1 Apply to corners of the lips twice daily as needed for flares. 30 g 2 Glucose Blood (CONTOUR NEXT TEST) STRP USE TO TEST BLOOD SUGAR UP TO 6 TIMES DAILY WITH MEDTRONIC INSULIN PUMP 600 Strip 3 Current Facility-Administered Medications Medication Dose Route Frequency Provider Last Rate Last Admin bevaCIZumab (Avastin) inj 1.25 mg 1.25 mg Intravitreal PRN Christopher T Cessna, DO 1.25 mg at 11/26/22 151 ROPivacaine (Naropin) inj 1.5 mg 1.5 mg Perineural PRN Christopher T Cessna, DO 1.5 mg at 11/26/22 1517 ALLERGIES: Bydureon [exenatide] and Lisinopril ROS: Constitutional: Negative for fatigue, fever, appetite change, unexplained weight loss. ENT: Negative for hearing loss, sore throat. Respiratory: Negative for cough, shortness of breath, dyspnea. Musculoskeletal: Positive for low back and right leg pain Neurological: Negative for headaches, seizures. Positive for paresthesias right foot Genitourinary: Negative for dysuria, urinary frequency, hematuria. Hematologic/ Lymphatic: Negative for easy bleeding, bruising, lymphadenopathy. Gastrointestinal: Negative for abdominal pain, nausea, vomiting, constipation, diarrhea. Cardiovascular: Negative for chest pain, palpitations, ankle swelling, orthopnea. PHYSICAL EXAMINATION: Most Recent Vital Signs: There were no vitals filed for this visit. General Appearance: Patient appears to be about stated age, pleasant and cooperative with normal affect. HEENT: head normocephalic, pupils equal round and reactive to light and accommodation, EOMI, hearing intact and equal bilaterally, and nose clear, throat normal Heart: regular rate and rhythm Lungs: Clear to Auscultation MS: He can stand ambulate without gait abnormality. He has +5 over 5 motor function lower extremities. There are no gross sensory deficits noted. There is pain with straight leg raising on the right.He has + 1/4 left Achilles reflex absent on the right +2 over 4 patellar reflexes bilaterally. He does not have significant sacroiliac joint or trochanteric tenderness. IMAGING: Reviewed MRI of the lumbar spine he does have a posterior in right-sided disc protrusion with some contact with the traversing S1 root on the right . He does not have significant central canal stenosis . ASSESSMENT: Right lumbar radicular pain Herniated lumbar disc right L5-S1 PLAN: I did offer pursue epidural steroid injection initially using a caudal technique in the procedural risks including bleeding, infection, headache, nerve or spinal cord injury, worsening pain or steroid side effects were reviewed and accepted. He would like to proceed will be scheduled pending insurance approval. Eloy Santos DO 12/25/2022 I spent a total of 40-54 minutes (exact time 42 mins) on the date of service in preparation, delivery, and documentation of the care provided to Tony Sheppard excluding any time spent in the performance of separately billed services. documented in this encounter Nursing Notes * Jihan Astorga LPN - 12/25/2022 1:51 PM EDT Patient presents with low back and R leg pain x1yr Worse with PT MRI in chart Worse with twisting/turning documented in this encounter Plan of Treatment Upcoming Encounters Date Type Specialty Care Team Description 01/13/2023 Office Visit Ophthalmology Felix Sanchez, DO [address] [place] [address] 01/29/2023 Hospital Encounter Surgery Eloy Santos DO [address] [place] [address] 01/29/2023 Surgery Surgery Eloy Santos DO [address] [place] [address] INJECTION SPINE LUMBAR OR SACRAL 11/06/2023 Office Visit Family Medicine Gold Zhang MD [address] [place] [address] Scheduled Orders Name Type Priority Associated Diagnoses Orde r Schedule INJECT DX/THER SUBSTANCE INTERLAMINAR LUMBAR/SACRAL W IMAGE GUIDE Procedures Routine Lumbar radicular pain Herniated intervertebral disc of lumbar spine Ordered: 12/25/2022 Scheduled Procedures Name Priority Associated Diagnoses Date/Ti [...] 02/28/2023 02/28/2022, 07/02, 12/11/2020, Additional history exists DIABETES-FOOT EXAM 07/12/2023 07/11/2022 (D one elsewhere), 05/06/2021, 01/10/2020, Additional history exists DIABETES-EYE EXAM 08/29/2023 08/28/2022, , 07/05/2021, Additional history exists Depression Screening, Annual for Pts 12 and Over 11/06/2023 11/05/2022 Pneumococcal Vaccine: 65+ Years (4 [...] this encounter Medical Devices Implanted Type Area Form Grader Operator Device Identifier Shelf Expiration Date Model / Serial / Lot Clip Quick 2.8mm 230cm - [id number] Implanted:Qty: 1 on 07/31/2021 by Juan Jose Angulo MD at ENDOSCOPY [facility] Colon [employer] 12/02/2023 [id number] / [id number] documented as of this encounter Visit Diagnoses Diagnosis Lumbar radicular pain- Primary Thoracic or lumbosacral neuritis or radiculitis, unspecified Herniated intervertebral disc of lumbar spine Lumbar radiculopathy Thoracic or lumbosacral neuritis or radiculitis, unspecified documented in this encounter Care Teams Vba Programmer Relationship Specialty Start Date End Date Gold Zhang MD [address] [place] [address] PCP - General Family Medicine 08/02/20 documented as of this encounter
--- OUTSIDE RECORDS SUMMARY | 2023-03-29 16:45 | External Medical Summary | Summary of Care ---
Author Name Unknown Organization [facility] Address [address] [place] [address] Phone [phone] Care Team Providers Care Bead Wrapper Name Role Phone Gold Zhang MD Primary Care Provider + Encounter Details Date Type Department Care Team Description 01/06/2023 Orders Only Outcomes Research Department [address] [place], [place] [id number] Ghazala Salomon CHRA [employer] Research Other*[id number] Allergies Active Allergy Reactions Severity Noted Date Comments Exenatide 01/22/2015 Dizzy, lightheaded and nausea Lisinopril Cough Low 06/22/2013 documented as of this encounter (statuses as of 01/06/2023) Medications Medication Sig Dispensed Refills Start Date [...] Each 3 07/06/2018 Active Insulin Infusion Pump (MINIM[employer] Corporation 630G INSULIN PUMP) KIT Use as directed. 1 Kit 0 07/06/2018 Active Glucose Blood (CONTOUR NEXT TEST) STRP USE TO TEST BLOOD SUGAR UP TO 6 TIMES DAILY WITH [email or web address] INSULIN PUMP 600 Strip 3 09/28/2019 Active [...] right eye and macular edema, unspecified whether huc insulin use (HCC) 1.25 mg IZ PRN 11/26/2022 11/26/2023 Active ROPivacaine (Naropin) inj 1.5 mgIndications: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, unspecified whether huc insulin use (HCC) 1.5 mg PERINEURAL PRN 11/26/2022 11/26/2023 Active documented as of this encounter (statuses as of 01/06/2023) Active Problems Problem Noted Date Vertigo 11/05/2022 Overview: intermittent positional vertigo that he has had almost all his life Arthritis of both hands 05/07/2022 History of 2019 novel coronavirus diseas e (COVID-19) 05/28/2021 Overview: 05/25 Well adult exam 11/01/2020 Overview: Ortho Dr Magaan. sees [facility] endo Dr Andrez Charles--has pump [...] as of this encounter (statuses as of 01/06/2023) Resolved Problems Problem Noted Date Resolved Date [...] 7.0% 03/01/2009 10/12/2014 Overview: Pt uses a [employer] external insulin pump which requires the use of [employer] contour next test strips ICD-10 update of [...] as of this encounter (statuses as of 01/06/2023) Immunizations Name Administration Dates Next Due COVID-19 [...] on file documented as of this encounter Plan of Treatment Upcoming Encounters Date Type Specialty Care Team Description 01/13/2023 Office Visit Ophthalmology Felix Sanchez, DO [address] [place] [address] 01/29/2023 Hospital Encounter Surgery Eloy Santos, DO [address] [place] [address] 01/29/2023 Surgery Surgery Eloy Santos, DO [address] [place] [address] INJECTION SPINE LUMBAR OR SACRAL 11/06/2023 Office Visit Family Medicine Gold Zhang MD [address] [place] [address] Scheduled Orders Name Type Priority Associated Diagnoses Orde r Schedule MYCODE SUBSEQUENT ADULT Lab Routine MyCode Research Other*[id number] Every 6 Months for 2 Occurrences starting 01/06/2023 until 01/26/2024 Scheduled Procedures Name Priority Associated Diagnoses Date/Ti [...] this encounter Medical Devices Implanted Type Area Hims Manager Device Identifier Shelf Expiration Date Model / Serial / Lot Clip Quick 2.8mm 230cm - [id number] Implanted:Qty: 1 on 07/31/2021 by Juan Jose Angulo MD at ENDOSCOPY [facility] Colon [employer] 12/02/2023 [id number]-202UR.A / / [id number] documented as of this encounter Visit Diagnoses Diagnosis MyCode Research Other*[id number] Lumbar radiculopathy Thoracic or lumbosacral neuritis or radiculitis, unspecified documented in this encounter Care Teams Bead Wrapper Relationship Specialty Start Date End Date Gold Zhang MD [address] [place] [address] PCP - General Family Medicine 08/02/20 documented as of this encounter
--- OUTSIDE RECORDS SUMMARY | 2023-03-29 16:45 | External Medical Summary | Summary of Care ---
Author Name Unknown Organization [facility] Address [address] [facility] [address] Phone [phone] Care Team Providers Care Hot Metal Mixer Operator Name Role Phone Gold Zhang MD [...] right eye (HCC) Procedures INECTION,BEVACIZUMAB, 10 MG MI INTRAVITREAL NJX PHARMACOLOGIC AGT SPX Felix Sanchez DO [address] [place] [address] Referral ID Status Reason Start Date Expiration Date V isits Requested Visits Authorized [id number] Authorized Precert 04/30/2021 05/03/2099 99 99 Encounter Details Date Type Department Care Team Description 01/13/2023 Office Visit Ophthalmology, [facility] [address] [place] [address] Felix Sanchez DO [address] [place] [address] 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 [...] wnl, no csme vessels: av nicking midperiphery: +steam hand periphery: no RT/RD OCT Interpretation: OD: temporal thinning, central fovea clear, +trace ERM, no PVD - improved, prior STABLE, prior STABLE, prior STABLE OS: no CME/SRFluid, no PVD - STABLE, prior STABLE, prior STABLE, prior STABLE Fundus Photo Interpretation - 02/10/17: OD: +regressed NVD, +steam hand, old FML OS: n/a A/P: 1. Diabetic [...] Felix Sanchez DO Avastin 1.25mg lot # [id number] Exp. Date: 02/15/23 * SARWAT Sow - [...] Forrest, DO [address] [place] [address] 01/29/2023 Surgery Surgery Eloy Santos Forrest, DO [address] [place] [address] INJECTION SPINE LUMBAR OR SACRAL 11/06/2023 Office Visit Family Medicine Gold Zhang MD [address] [place] [address] Scheduled Procedures Name Priority Associated Diagnoses Date/Ti [...] this encounter Medical Devices Implanted Type Area General Superintendent Device Identifier Shelf Expiration Date Model / Serial / Lot Clip Quick 2.8mm 230cm - [id number] Implanted:Qty: 1 on 07/31/2021 by Juan Jose Angulo MD at ENDOSCOPY 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
--- OUTSIDE RECORDS SUMMARY | 2023-03-29 16:45 | External Medical Summary | Continuity of Care Document ---
Author Name Unknown Organization [id number] Address [address] [place] [id number] Care Team Providers Care Fruit Receiver Name Role Phone Gold Zhang Primary Care Physician [phone] [id number] Date(s): 12/08/22 - 12/08/22 [facility] [address] [place] [id number] [facility] [address] [place] [address] Encounter Diagnosis Diabetes(Discharge Diagnosis) - 12/08/22 Subungual hematoma of toe(Discharge Diagnosis) - 12/08/22 Diabetic neuropathy(Discharge Diagnosis) - 12/08/22 Discharge Disposition: Home or Self Care Attending Physician: LORE Mondragon Christina L Referring Physician: MD Araceli, Andrez Lott Allergies, Adverse Reactions, Alerts Substance Reaction Severity Status lisinopril Cough Mild Active oxyCODONE Vomiting Mild Active Assessment and Plan Extracted from: Title:Orthopaedics Office Visit Note Author:Hattie Pisano DPM, Christina L Date:12/08/22 1.Diabetes I discussed with patient today he is a low risk diabeticI do feel he has an element of neuropathy and that if he ever would be agreeable I would be more than happy to prescribe diabetic shoes but will defer today at patient's request. Could consider in the future. Patient notes he has had them before but was not interested in reordering. Additionally I discussed with patient todaythat if he is agreeable I would be happy to provide diabetic toenail carewhich she did defer today stating his cuts his toenails. He had no other concerns noted at today's visit. We reviewed and discussed diabetic neuropathy I recommend follow-up in 6 months for diabetic foot evaluation. 20-minute initial visit, 5-minute chart review, 15 minutes [id number]. 2.Subungual hematoma of toe 3.Diabetic neuropathy Medications atorvastatin 40 mg oral tablet Start: 12/08/22 13:12:00 EDT, 1 tab, PO, Daily Start Date: 12/08/22 Status: Ordered HumaLOG Vial 100 units/mL injectable solution Start: 12/08/22 13:13:00 EDT, unit =, subQ, Daily Start Date: 12/08/22 Status: Ordered hydroCHLOROthiazide 25 mg oral tablet Start: 12/08/22 13:12:00 EDT, 1 tab, PO, Daily Start Date: 12/08/22 Status: Ordered MetFORMIN (Eqv-Glucophage XR) 500 mg oral tablet, extended release Start: 12/08/22 13:12:00 EDT Start Date: 12/08/22 Status: Ordered Metoprolol Succinate ER 50 mg oral tablet, extended release Start: 12/08/22 13:11:00 EDT, 1 tab, PO, Daily Start Date: 12/08/22 Status: Ordered olmesartan 40 mg oral tablet Start: 12/08/22 13:12:00 EDT, 1 tab, PO, Daily Start Date: 12/08/22 Status: Ordered Ozempic (1 mg dose) 4 mg/3 mL subQ pen Start: 12/08/22 13:13:00 EDT, 1 mg =, subQ, q7days, Disp# 3 mL Start Date: 12/08/22 Status: Ordered Mental Status 12/08/22 Barriers to Learning one year None evide nt Mandatory Health Literacy Documentation Yes Health Literacy Communication Barriers N ever Primary Language Ukrainian Problem List Condition Confirmation Course Effective Dates Status Health St atus Informant Diabetes Confirmed Active Diabetic neuropathy Confirmed Active Subungual hematoma of toe Confirmed Active Diagnosis Diagnosis Type Effective Dates Health Status Clinical Service Informant Diabetes Discharge Diagnosis 12/08/22 Subungual hematoma of toe Discharge Diagnosis 12/08/22 Diabetic neuropathy Discharge Diagnosis 12/08/22 Vital Signs Most recent to oldest [Reference Range]: 1 Height 172.5 cm (12/08/22 1:15 PM) Patient Weight 96.6 kg (12/08/22 1:15 PM) Body Mass Index 32.46 kg/m2 (12/08/22 1:15 PM) Social History Social History Type Response Smoking Status Never smoked cigaret conrad Sex Male Ortho Outpt Note * LORE Mondragon, Lavern Negron: PERFORM Event Display: Ortho Outpt Note Authored Date: Primary Care Provider MD Leatha, Gold Lord Referring Provider MD Araceli, Andrez Lott Chief Complaint two toes on left 1 toe on right nails turning black History of Present Illness Patient is a very pleasant 67-year-old male presenting today for an initial evaluationof a contusion of the left foot. PCPDr.Leatha Sees endocr[facility]ology in [facility]. Past medical historydiabetes type 2 hypercholesteremianephropathyneuropathy blood pressureand retinopathy. Medicationsreviewedincludes aspirin. Allergieslisinopril and oxycodone. Surgical historytonsillectomy. Family historybreast cancer and heart disease. Social historydenies smokingpositive for alcohol use Review of Systems Diabetes type 2arthritisloss of hearing diabetes Physical Exam Vitals & Measurements HT:172.5cm WT:96.600kg(Dosing) WT:96.6kg BMI:32.46 Problem focused bilateral feet: Dorsalis pedis pulse palpable 2 out of 4, posterior tibial pulse palpable 2 out of 4,capillary refill time less than 3 seconds,skin turgor is good to all digits of both feet pedal hair is present. Neurovascular status grossly intact all digits of both feet,there is some loss of sensation with use of monofilamentof the leftfifth fourth and third digitssecondary to diabetic neuropathy,proprioception is minimally diminished light touch minimally diminished. There are no open wounds or lesions present on the skin, interspaces are intact without maceration or breakdownno history of amputations. Toenails of digits 1 through 5 right foot of normal length and shape. Left hallux toenail withirregularity secondary to history of multiple total nail avulsions no painno discomfort no acute paronychia,third, fourth, fifth digits left toenail withbruising under nailsubungual hematoma secondary to use of steel toed bootsand diabetic neuropathythere is no pain no drainage no localized infectionotherwise area is stable clinical photo in chart. Images 2022-12-08 13:24:51 Assessment/Plan 1.Diabetes I discussed with patient today he is a low risk diabeticI do feel he has an element of neuropathyand that if he ever would be agreeable I would be more than happy to prescribe diabetic shoes but will defer today at patient's request. Could consider in the future. Patient notes he has had them before but was not interested in reordering. Additionally I discussed with patient todaythat if he is agreeable I would be happy to provide diabetic toenail carewhich she did defer today stating his cuts his toenails. He had no other concerns noted at today's visit. We reviewed and discussed diabetic neuropathy I recommend follow-up in 6 months for diabetic foot evaluation. 20-minute initial visit, 5-minute chart review, 15 minutes [id number]. 2.Subungual hematoma of toe 3.Diabetic neuropathy Problem List/Past Medical History Ongoing Diabetes Diabetic neuropathy Subungual hematoma of toe Medications atorvastatin(atorvastatin 40 mg oral tablet), 40 mg= 1 tab, PO, Daily hydroCHLOROthiazide(hydroCHLOROthiazide 25 mg oral tablet), 25 mg= 1 tab, PO, Daily insulin lispro(HumaLOG Vial 100 units/mL injectable solution), subQ, Daily metFORMIN(MetFORMIN (Eqv-Glucophage XR) 500 mg oral tablet, extended release) metoprolol(Metoprolol Succinate ER 50 mg oral tablet, extended release), 50 mg= 1 tab, PO, Daily olmesartan(olmesartan 40 mg oral tablet), 40 mg= 1 tab, PO, Daily semaglutide(Ozempic (1 mg dose) 4 mg/3 mL subQ pen), 1 mg, subQ, q7days Allergies lisinopril (Mild)Cough oxyCODONE (Mild)Vomiting Social History Smoking Status Never smoked cigarettes Recommendations Health Maintenance Pending(in the next year) OverDue Adult Influenza Vaccine due11/01/22and every 1year Satisfied(in the past 1 year) There are no satisfied recommendations within the defined date range Electronic Signature on File Electronically Reviewed/Signed by: Lavern Mondragon DPM Author Signature Dt/Tm:12/08/2022 01:31 PM Division of Sports Medicine CLR Patient Care team information Care Team Personnel Name: MD Leatha, Gold Lord Position: Referring DIRECT Member Role: Primary Care Provider Address: Address: [address] [place] [address]
--- OUTSIDE RECORDS SUMMARY | 2023-03-29 16:45 | External Medical Summary | Summary of Care ---
Author Name Unknown Organization [facility] Address [address] [facility] [place] [address] Phone [phone] Care Team Providers Care Veneer Splicer Name Role Phone Gold Zhang MD Primary Care Provider + Reason for Visit * Reason Comments Follow Up Follow up on AK's on scalp and face. Encounter Details Date Type Department Care Team (Late st Contact Info) Description 03/10/2023 10:00 AM EST Office Visit Dermatology [facility] [address] [place] [address] Brooke Brannon PA-C [address] [facility] [place] [address] Neoplasm of uncertain behavior of skin*; [...] Each 3 07/06/2018 Active Insulin Infusion Pump (MINIMHU[employer] 630G INSULIN PUMP) KIT Use as directed. 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 sees [facility] endo Dr Andrez Charles--has pump 07/23 colon [...] as of this encounter Progress Notes * Gold Reese MD - 03/10/2023 1:38 PM EST I have reviewed the charting notes and orders and associated images and agree with the assessment and plan of Brooke Vigil PA-C . Gold Reese MD., Dermatology [facility] [address] [place] [address] , [place] [phone] * Brooke Brannon PA-C - 03/10/2023 10:07 [...] directed. 1 Kit 0 ONETOUCH ULTRASOFT LANCETS MISC Use as directed. 300 Box 3 hydrocortisone 2.5%-clotrimazole 1% 1:1 Apply to corners of the lips twice daily as needed for flares. 30 g 2 Insulin Infusion Pump Supplies (STEFFI INFUSION SET 18" 6MM) MISC Use with insulin pump. Change every 1-2 days or as directed. ICD10: E11.9 30 Each 3 Insulin Infusion Pump Supplies (PARADIGM PUMP RESERVOIR 3ML) [facility] Use every 1-2 days for insulin pump. Uses approximately 120 units/day. 50 Each 3 Insulin Infusion Pump (MINIMED 630G INSULIN PUMP) KIT Use as directed. 1 Kit 0 Glucose Blood (CONTOUR NEXT TEST) STRP USE [...] PRN Felix Sanchez DO 1.5 mg at 330 ALLERG Y: Bydureon [exenatide] and Lisinopril OBJECTIVE: GEN: Healthy, alert, no distress, appears oriented, pleasant, and cooperative. PSYCH: Appropriate mood and affect, alert SKIN: Detailed exam of scalp, hair, face including lids and lips, ears, neck was completed and are within normal limits with the following exceptions: 1. [place] hyperkeratotic plaque R temporal scalp 2. [place] scaly papule R ear lobe 3. [place] papule R medial cheek 4. Hyperkeratotic plaque [...] on treatment for now. Advised pt to fish bait picker rx but further instruction to be given [...] 04/23/2023 2:45 PM EST Office Visit Ophthalmology, [facility] [address] [place] [address] Felix Sanchez, DO [address] [place] [address] 05/20/2023 8:00 AM EST Hospital Encounter OR [facility], Operating Room [facility] [address] [place] [phone] Zoltan Fall, [address] [place] [address] 05/20/2023 8:00 AM EST - 05/20/2023 8:25 AM EST Surgery OR [facility], Operating Room [facility] [address] [place] [phone] Zoltan Fall, DO [address] [place] [address] INJECTION TRANSFORAMINAL EPIDURAL LUMBAR OR SACRAL 11/06/2023 8:20 AM EDT Office Visit Family Practice [facility] [address] [place] [address] Gold Zhang MD [address] [place] [address] Pending Results Name Type Priority Associated Diagnoses [...] elsewhere), 07/11/2021, Additional history exists COVID-19 Vaccine (2022- season) 2023 02/21/2021, 06/13/2020, 05/23/2020 GFR 02/28/2023 [...] this encounter Medical Devices Implanted Type Area Svp Digital Sales Food & Cooking Device Identifier Shelf Expiration Date Model / Serial / Lot Clip Quick 2.8mm 230cm - [id number] Implanted:Qty: 1 on 07/31/2021 by Juan Jose Angulo MD at ENDOSCOPY [facility] Colon [employer] 12/02/2023 HX-202UR.A / / [id number] documented [...] unspecified documented in this encounter Care Teams Veneer Splicer Relationship Specialty Start Date End Date Gold Zhang MD [address] [facility] [place] [address] PCP - General Family Medicine 08/02/20 documented as of this encounter
--- OUTSIDE RECORDS SUMMARY | 2023-03-29 16:45 | External Medical Summary | Summary of Care ---
Author Name Unknown Organization [facility] Address [address] [facility] [place] [address] Phone [phone] Care Team Providers Care Line Out Worker Name Role Phone Gold Zhang MD Primary Care Provider + Reason for Visit * Reason Onset Date Comments Advice 03/02/2023 Encounter Details Date Type Department Care Team (Late st Contact Info) Description 03/02/2023 Telephone Interventional [facility], [facility] [address] [place] [address] [place], [address] [place] [address] Advice Allergies Active Allergy Reactions Criticality Noted [...] Each 3 07/06/2018 Active Insulin Infusion Pump (MINIMGiftLauncher 630G INSULIN PUMP) KIT Use as directed. 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 sees [facility] endo Dr Andrez Charles--has pump 07/23 colon [...] 03/01/2009 10/12/2014 Overview: Pt uses a medtronic minimStypi external insulin pump which requires the use [...] encounter Miscellaneous Notes * Telephone Encounter - [place] Real OSA [...] 03/09/2023 2:45 PM EST Office Visit Ophthalmology, [facility] [address] [place] [address] Felix Sanchez DO [address] [place] [address] 03/10/2023 10:00 AM EST Office Visit Dermatology [facility] [address] [place] [address] Brooke Brannon PA-C [address] [facility] [address] 11/06/2023 8:20 AM EDT Office Visit Family [facility] [address] [place] [address] Gold Zhang MD [address] [place] [address] Scheduled Procedures Name Priority Associated Diagnoses Date/Ti [...] Vaccine ( season) 2023 02/21/2021, 06/13/2020, 05/23/2020 Influenza Vaccine [...] this encounter Medical Devices Implanted Type Area Jitterbug Operator Device Identifier Shelf Expiration Date Model / Serial / Lot Clip Quick 2.8mm 230cm - [id number] Implanted:Qty: 1 on 07/31/2021 by Juan Jose Angulo MD at ENDOSCOPY [facility] Colon [employer] 12/02/2023 HX-202UR.A / / [id number] documented as of this encounter Care Teams Line Out Worker Relationship Specialty Start Date End Date Gold Zhang MD [address] [facility] [place] [address] PCP - General Family Medicine 08/02/20 documented as of this encounter
--- OUTSIDE RECORDS SUMMARY | 2023-03-29 16:45 | External Medical Summary | Summary of Care ---
Author Name Unknown Organization [facility] Address [address] [address] Phone [phone] Care Team Providers Care Inspector Conveyor Line Name Role Phone Gold Zhang MD Primary [...] right eye (HCC) Procedures INECTION,BEVACIZUMAB, 10 MG OK INTRAVITREAL NJX PHARMACOLOGIC AGT SPX Felix Sanchez DO [address] [place] [address] Referral ID Status Reason Start Date Expiration Date V isits Requested Visits Authorized [id number] Authorized Precert 04/30/2021 05/03/2099 99 99 Encounter Details Date Type Department Care Team Description 01/13/2023 Office Visit Ophthalmology, [facility] [address] [place] [address] Felix Sanchez DO [address] [place] [id number] 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 sees [facility] endo Dr Andrez Charles--has pump 07/23 [...] 7.0% 03/01/2009 10/12/2014 Overview: Pt uses a InternetArray external insulin pump which requires the use [...] - 01/13/2023 12:45 PM EDT [facility] [place] Nursing notes reviewed. [...] wnl, no csme vessels: av nicking midperiphery: +senior research manager periphery: no RT/RD OCT Interpretation: OD: temporal thinning, central fovea clear, +trace ERM, no PVD - improved, prior STABLE, prior STABLE, prior STABLE OS: no CME/SRFluid, no PVD - STABLE, prior STABLE, prior STABLE, prior STABLE Fundus Photo Interpretation - 02/10/17: OD: +regressed NVD, +senior research manager, old FML OS: n/a A/P: 1. Diabetic [...] Felix Sanchez DO Avastin 1.25mg lot # [id number] Exp. Date: 02/15/23 * SARWAT Sow - [...] Forrest, DO [address] [place] [address] 01/29/2023 Surgery Surgery Eloy Santos Forrest, DO [address] [place] [address] INJECTION SPINE LUMBAR OR SACRAL 11/06/2023 Office Visit Family Medicine Gold Zhang MD [address] [place] [address] Scheduled Procedures Name Priority Associated Diagnoses Date/Ti [...] this encounter Medical Devices Implanted Type Area Dairy Equipment Repairer Device Identifier Shelf Expiration Date Model / Serial / Lot Clip Quick 2.8mm 230cm - [id number] Implanted:Qty: 1 on 07/31/2021 by Juan Jose Angulo MD at ENDOSCOPY [facility] [employer] 12/02/2023 [id number]-[id number] / / [id number] documented as of this encounter Visit Diagnoses Diagnosis 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
--- OUTSIDE RECORDS SUMMARY | 2023-03-29 16:46 | External Medical Summary | Summary of Care ---
Author Name Unknown Organization [facility] Address [address] [facility] [place] [address] Phone [phone] Care Team Providers Care Business Intelligence Etl Developer Name Role Phone Gold Zhang MD Primary Care Provider + Reason for Visit * Reason Onset Date Comments Scheduling 11/28/2022 Encounter Details Date Type Department Care Team Description 11/28/2022 Telephone Ophthalmology, [facility] [address] [place] [address] Felix Sanchez DO [address] [place] [address] Scheduling Allergies Active Allergy Reactions Severity Noted Date Comments Exenatide 01/22/2015 Dizzy, lightheaded and nausea Lisinopril Cough Low 06/22/2013 documented as of this encounter (statuses as of 11/28/2022) Medications Medication Sig Dispensed Refills Start Date [...] Each 3 07/06/2018 Active Insulin Infusion Pump (RentHop 630G INSULIN PUMP) KIT Use as directed. 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 sees [facility] endo Dr Andrez Charles--has pump [...] as of this encounter (statuses as of 11/28/2022) Resolved Problems Problem Noted Date Resolved Date [...] 03/01/2009 10/12/2014 Overview: Pt uses a medtronic miniminvestUP external insulin pump which requires the use [...] as of this encounter (statuses as of 11/28/2022) Immunizations Name Administration Dates Next Due COVID-19 mRNA, LNP-s, No Pre serve, 2-Dose Series (Moderna) 06/13/2020,05/23/2020 COVID-19 mRNA, LNP-s, No Pre serve, 2-Dose Series (Pfizer) 02/21/2021 Pneumococcal Conjugate Vacc, 13 Valent (Prevnar) 05/22/2017 Pneumococcal Polysaccharide PPV23 (Pneumovax) 03/30/2019 Seasonal Influenza, Quadriva lent Hd (Fluzone Hd) 03/21/2022 Seasonal Influenza, Quadriva lent, No Preserve, 6 Mons & Above, IM 03/18/2021,02/23/2020,03/30/2019,03/01,04/01/2017 Seasonal Influenza, Quadriva lent, No Preserve, IM [...] encounter Miscellaneous Notes * Telephone Encounter - MARJORIE Bai - 11/28/2022 2:11 PM EDT Attempted to contact patient - no answer, left voicemail with new appointment date and time. Patient was seen by Dr. Sanchez on 11/26 and follow up is 6-8 weeks. He was previously scheduled for 12/15 but seen sooner for new bleed so we cancelled appointment on 12/15 and rescheduled to Saturday 01/13 @ 12:45pm. Requested call back from patient if this date and time does not work for him or with any questions/concerns. MARJORIE Bai 11/28/2022 2:13 PM documented in this encounter Plan of Treatment Upcoming Encounters Date Type Specialty Care Team Description 12/02/2022 Office Visit Dermatology Brooke Brannon PA-C [address] [facility] [place] [address] 01/13/2023 Office Visit Ophthalmology Felix Sanchez DO [address] [place] [address] 11/06/2023 Office Visit Family Medicine Gold Zhang MD [address] [place] [address] Scheduled Procedures Name Priority Associated Diagnoses Date/Ti [...] this encounter Medical Devices Implanted Type Area Supervisor Laboratory Device Identifier Shelf Expiration Date Model / Serial / Lot Clip Quick 2.8mm 230cm - [id number] Implanted:Qty: 1 on 07/31/2021 by Juan Jose Angulo MD at ENDOSCOPY [facility] Colon [employer] 12/02/2023 [id number]-[id number] / / [id number] documented as of this encounter Care Teams Business Intelligence Etl Developer Relationship Specialty Start Date End Date Gold Zhang MD [address] [place] [address] PCP - General Family Medicine 08/02/20 documented as of this encounter
--- OUTSIDE RECORDS SUMMARY | 2023-03-29 16:46 | External Medical Summary | Summary of Care ---
Author Name Unknown Organization [facility] Address [address] [facility] [place] [address] Phone [phone] Care Team Providers Care Asbestos Removal Worker Name Role Phone Gold Zhang MD Primary Care Provider + Reason for Visit * Reason Onset Date Comments Test Results 11/25/2022 Encounter Details Date Type Department Care Team Description 11/25/2022 Telephone Family Practice [facility] [address] [facility] [place] [address] Miguelangel Navarro CRNP [address] [facility] [place] [address] Test Results Allergies Active Allergy Reactions Severity Noted Date Comments Exenatide 01/22/2015 Dizzy, lightheaded and nausea Lisinopril Cough Low 06/22/2013 documented as of this encounter (statuses as of 11/26/2022) Medications Medication Sig Dispensed Refills Start Date [...] Each 3 07/06/2018 Active Insulin Infusion Pump (Eyeonix 630G INSULIN PUMP) KIT Use as directed. 1 Kit 0 07/06/2018 Active Glucose Blood (CONTOUR NEXT TEST) STRP USE TO TEST BLOOD SUGAR UP TO 6 TIMES DAILY WITH MobilePeak INSULIN PUMP 600 Strip 3 09/28/2019 Active [...] THE MORNING 90 Tablet 1 10/21/2022 Active documented as of this encounter (statuses as of 11/26/2022) Active Problems Problem Noted Date Vertigo 11/05/2022 Overview: intermittent positional vertigo that he has had almost all his life Arthritis of both hands 05/07/2022 History of 2019 novel coronavirus diseas e (COVID-19) 05/28/2021 Overview: 05/25 Well adult exam 11/01/2020 Overview: Ortho Dr Magana. sees [facility] endo Dr Andrez Charles--has pump 07/23 colon [...] as of this encounter (statuses as of 11/26/2022) Resolved Problems Problem Noted Date Resolved Date [...] as of this encounter (statuses as of 11/26/2022) Immunizations Name Administration Dates Next Due COVID-19 [...] encounter Miscellaneous Notes * Telephone Encounter - Nikkie Singleton LPN - 11/26/2022 9:33 AM EDT Provider to address: Patient aware and verbalized understanding, will think about seeing pain management and call back once he decides what to do. Reason for Call: Test Results Contact: Telephone Call Contact Type: Care Coordination Total Time including non face to face (minutes): 5 * Telephone Encounter - Tony Queen RN - 11/26/2022 8:28 AM EDT Provider to address: Nursing Reason for Call: Test Results Contact: Telephone Call Contact Type: Test Results Outcome: Called, left message with patient's spouse Tala for patient to return call to nurse call center. Please see Miguelangel's previous message. 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 Recommend to f/u with pain management if symptoms persist. Please schedule patient is agreeable. documented in this encounter Plan of Treatment Upcoming Encounters Date Type Specialty Care Team Description 11/26/2022 Office Visit Ophthalmology Felix Sanchez, DO [address] [place] [address] 12/02/2022 Office Visit Dermatology Brooke Brannon PA-C [address] [facility] [place] [address] 12/15/2022 Office Visit Ophthalmology [employer] Sanchez, DO [address] [place] [address] 11/06/2023 [facility] [address] [place] [address] Scheduled Procedures Name Priority Associated Diagnoses Date/Ti me COLONOSCOPY FLEXIBLE PROXIMAL DIAGNOSTIC Recall History of colon polyps Health Maintenance Due Date Last Done Comments DXA Scan 1955 COVID-19 Vaccine (4 - Moderna series) 04/18/2021 02/21/2021, 06/13/2020, 05/23/2020 B-12 11/09/2021 11/09/2020, 10/2018, 04/01/2017 Albumin/Creatinine Ratio [...] Over 11/06/2023 11/05/2022 Pneumococcal Vaccine: 65+ Years (3 - PPSV23 or PCV20) 03/30/2024 03/30/2019, 05/22/2017, [...] this encounter Medical Devices Implanted Type Area Web Feeder Device Identifier Shelf Expiration Date Model / Serial / Lot Clip Quick 2.8mm 230cm - [id number] Implanted:Qty: 1 on 07/31/2021 by Juan Jose Angulo MD at ENDOSCOPY [facility] Colon [employer] 12/02/2023 [id number]-[id number] / / [id number] documented as of this encounter Care Teams Asbestos Removal Worker Relationship Specialty Start Date End Date Gold Zhang MD [address] [place] [address] PCP - General Family Medicine 08/02/20 documented as of this encounter
--- OUTSIDE RECORDS SUMMARY | 2023-03-29 16:46 | External Medical Summary | Summary of Care ---
Author Name Unknown Organization [facility] Address [address] [facility] [place] [address] Phone [phone] Care Team Providers Care Commercial Intelligence Manager Name Role Phone Gold Zhang MD Primary Care Provider + Reason for Visit * Reason Onset Date Comments Appointment 11/19/2022 MRI Encounter Details Date Type Department Care Team Description 11/19/2022 Telephone Radiology [address] [place] [address] Andreia Ackerman, RT (R) Appointment (/MRI) Allergies Active Allergy Reactions Severity Noted Date Comments Exenatide 01/22/2015 Dizzy, lightheaded and nausea Lisinopril Cough Low 06/22/2013 documented as of this encounter (statuses as of 11/20/2022) Medications Medication Sig Dispensed Refills Start Date [...] Each 3 07/06/2018 Active Insulin Infusion Pump (MINIMViking Therapeutics 630G INSULIN PUMP) KIT Use as directed. 1 Kit 0 07/06/2018 Active Glucose Blood (CONTOUR NEXT TEST) STRP USE TO TEST BLOOD SUGAR UP TO 6 TIMES DAILY WITH Vibease INSULIN PUMP 600 Strip 3 09/28/2019 Active [...] as of this encounter (statuses as of 11/20/2022) Active Problems Problem Noted Date Vertigo 11/05/2022 Overview: intermittent positional vertigo that he has had almost all his life Arthritis of both hands 05/07/2022 History of 2019 novel coronavirus diseas e (COVID-19) 05/28/2021 Overview: 05/25 Well adult exam 11/01/2020 Overview: Ortho Dr Magana. sees [facility] endo Dr Andrez Charles--has pump [...] as of this encounter (statuses as of 11/20/2022) Resolved Problems Problem Noted Date Resolved Date [...] insulin pump which requires the use of Surveypal contour next test strips ICD-10 update of [...] as of this encounter (statuses as of 11/20/2022) Immunizations Name Administration Dates Next Due COVID-19 mRNA, LNP-s, No Pre serve, 2-Dose Series (Moderna) 06/13/2020,05/23/2020 COVID-19 mRNA, LNP-s, No Pre serve, 2-Dose Series (Pfizer) 02/21/2021 Influenza, Whole Virus 04/12/2003 Pneumococcal Conjugate Vacc, 13 Valent (Prevnar) 05/22/2017 Pneumococcal Polysaccharide PPV23 (Pneumovax) 03/30/2019,04/12/2003 Seasonal Influenza, Quadriva lent Hd (Fluzone Hd) 03/21/2022 Seasonal Influenza, Quadriva lent, No Preserve, 6 Mons & Above, IM 03/18/2021,02/23/2020,03/30/2019,02/02,04/01/2017 Seasonal Influenza, Quadriva lent, No Preserve, IM [...] encounter Miscellaneous Notes * Telephone Encounter - RT Kristel (R) - 11/20/2022 11:43 AM EDT Insulin pump and diabetic monitor, knows both will need removed * Telephone Encounter - RT Kristel (R) - 11/19/2022 4:09 PM EDT Left message to arrive at 2 and call MRI if any implants, metal in eyes, colonoscopy, insulin pump,diabetic monitor, new tattoos. Told to leave jewelry at home. documented in this encounter Plan of Treatment Upcoming Encounters Date Type Specialty Care Team Description 11/25/2022 Imaging Radiology 12/02/2022 Office Visit Dermatology Brooke Brannon PA-C [address] [facility] [place] [address] 12/15/2022 Office Visit Ophthalmology Felix Sanchez DO [address] [place] [address] 11/06/2023 Office Visit Family Medicine Gold Zhang MD [address] [place] [address] Scheduled Procedures Name Priority Associated Diagnoses Date/Ti [...] this encounter Medical Devices Implanted Type Area Kiln Stoker Device Identifier Shelf Expiration Date Model / Serial / Lot Clip Quick 2.8mm 230cm - [id number] Implanted:Qty: 1 on 07/31/2021 by Juan Jose Angulo MD at ENDOSCOPY [facility] Colon [employer] 12/02/2023 [id number]-[id number] / / [id number] documented as of this encounter Care Teams Commercial Intelligence Manager Relationship Specialty Start Date End Date Gold Zhang MD [address] [facility] [place] [address] PCP - General Family Medicine 08/02/20 documented as of this encounter
--- OUTSIDE RECORDS SUMMARY | 2023-03-29 16:46 | External Medical Summary | Summary of Care ---
Author Name Unknown Organization [facility] Address [address] [facility] [place] [address] Phone [phone] Care Team Providers Care Emergency Preparedness Manager Name Role Phone Gold Zhang MD Primary Care Provider + Reason for Visit * Reason Comments Follow Up 6-8 weeks dilate OCT OU Avastin * Precert (Within 10 days (routine)) - Authorized Specialty Diagnoses / Procedures Referred By Shayy dumont Referred To Contact Ophthalmology Diagnoses Type 2 diabetes mellitus with proliferative diabetic retinopathy with macular edema, right eye (HCC) Procedures INECTION,BEVACIZUMAB, 10 MG HI INTRAVITREAL NJX PHARMACOLOGIC AGT SPX Felix Sanchez DO [address] [place] [address] Referral ID Status Reason Start Date Expiration Date V isits Requested Visits Authorized [id number] Authorized Precert 04/30/2021 05/03/2099 99 99 Encounter Details Date Type Department Care Team Description 10/22/2022 Office Visit Ophthalmology, [facility] [address] [place] [address] Felix Sanchez DO [address] [place] [address] 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 1 Kit 0 07/06/2018 Active Glucose Blood (CONTOUR NEXT TEST) STRP USE TO TEST BLOOD SUGAR UP TO 6 TIMES DAILY WITH MEDTRONIC INSULIN PUMP 600 Strip 3 09/28/2019 Active Additional Information Patient not taking.Reported on 09/08/2022 Insulin Lispro 100 UNIT/ML Subcutaneous Solution (HumaLOG)Indications :Diabetic polyneuropathy (HCC),Diabetes mellitus with background retinopathy (HCC),Type 2 diabetes mellitus with hemoglobin A1c goal of less than 8.0% (HCC) USE FOR INSULIN PUMP (1 VIAL LASTS 3 DAYS) 300 mL 1 08/10/2020 Active Fluorouracil 5 % External Cream (Efudex) Apply to site on scalp twice daily x 2 weeks 40 g 0 10/07/2021 Active Cyclobenzaprine HCl 5 MG Oral Tablet (Flexeril)Indication s:Acute left-sided thoracic back pain Take by mouth 1 Tablet as needed before bedtime for Muscle spasms. 14 Tablet 0 12/07/2021 Active metFORMIN HCl 500 MG Oral Tablet (Glucophage) Take 2 Tablets by mouth in the morning and 2 Tablets before bedtime. 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, unspecified whether ad terminal makeup operator insulin use (HCC) 1.5 mg PERINEURAL PRN 05/26/2022 05/26/2023 Active documented as of this encounter (statuses as of 10/22/2022) Active Problems Problem Noted Date Arthritis of both hands 05/07/2022 History of 2019 novel coronavirus diseas e (COVID-19) 05/28/2021 Overview: 05/25 Well adult exam 11/01/2020 Overview: 07/23 colon mult polyps--path tubular adenoma & [...] as of this encounter (statuses as of 10/22/2022) Resolved Problems Problem Noted Date Resolved Date [...] 7.0% 03/01/2009 10/12/2014 Overview: Pt uses a [employer] external insulin pump which requires the use [...] as of this encounter (statuses as of 10/22/2022) Immunizations Name Administration Dates Next Due COVID-19 [...] Date Smoking Tobacco: Never Smokeless Tobacco: Never Tobacco Cessation:Counseling Given: No Alcohol Use Standard Drinks/Week Comments Yes 0 (1 standard drink = 0.6 oz pur e alcohol) 2-4 beers/month Food Insecurity Answer Date Recorded Within the past 12 months, y ou worried that your food would run out before you got money to buy more. Never true 07/07/2019 Within the past 12 months, t he food you bought just didn't last and you didn't have money to get more. Never true 07/07/2019 Sex Assigned at Date Recorded Not on file Job Start Date Occupation Industry Not on file Not on file Not on file documented as of this encounter Progress Notes * Felix Sanchez, - 10/22/2022 2:00 PM EDT [facility] [place] Nursing notes reviewed. Mood and affect: normal HPI: Tony Sheppard is a 66 year old male who presents for DR, old CRVO OD. No other eye complaints. Denies significant pain. Base Eye Exam Visual Acuity (Snellen - Linear) Right Left Dist cc 20/50 +2 20/20 Dist ph cc 20/25 -1 Correction: Glasses Tonometry (Tonopen, 1:45 PM) Right Left Pressure 13 10 Pupils Pupils Light Shape React APD Right PERRL 3 Round Brisk None Left PERRL 3 Round Brisk None Visual Huerta (Counting fingers) Right Left Full Full Extraocular Movement Right Left Full Full Neuro/Psych Oriented x3: Yes Dilation Both eyes: 0.5% Proparacaine @ 1:45 PM Dilation #2 Both eyes: 1.0% Mydriacyl, 2.5% Phenylephrine @ 1:45 PM Dilation Comments Patient cautioned that effects [...] 1+NSC OU Dilated fundus exam OD: vitreous: VH-mostly resolved optic nerve: 0.7, no edema/pallor, mild NVD--regressed macula: +MAs, no sig CME, +old laser scars vessels: tortuous dilated veins; +ischemic vasculature midperiphery: +PRP, trace heme x 4 quads periphery: no RT/RD, +PRP, trace heme x 4 quads Dilated fundus exam OS: vitreous: clear optic nerve: 0.7, no edema/pallor/NVD macula: wnl, no csme vessels: av nicking midperiphery: +linux system administrator periphery: no RT/RD OCT Interpretation: OD: temporal thinning, central fovea clear, +trace ERM, no PVD - STABLE, prior STABLE, prior STABLE OS: no CME/SRFluid, no PVD - STABLE, prior STABLE, prior STABLE Fundus Photo Interpretation - 02/10/17: OD: +regressed NVD, +linux system administrator, old FML OS: n/a A/P: 1. Diabetic retinopathy OU PDR OD: -s/p PRP 07/30/16 and 08/27/16 -s/p fill-in PRP 01/21/21 -s/p Avastin for NVD (05/13/21, 12/25/20, 09-18-20, 02-02-20, 03-23-19 for VHs, 12-29-18....09-29-18, 07-23-2017, 05/20/2017, 12-30-16, 06/24/16) -went 19 weeks in past -persistent NVD w/ mild VH 05/13/21 -multiple VH OD 2021 -Avastin 05/26/22, 04/07/22, 09/26/21 -22 weeks -t/c add PRP NPDR OS: -no CSME OS -recommend HgbA1C <7, BP and lipid control. 2. 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 Trinidad in past -s/p focal laser by Dr. Trinidad -s/p Avastin by Dr. Means 04/16/15 for ++CME 3. Cataracts OU -not visually significant F/u 6-8 weeks - Dilate and OCT OU Felix Sanchez DO 0323 CC: Danielito Mariee, OD PCP: Azael Stuart MD documented in this encounter Nursing Notes * Rahda Bell RN - 10/22/2022 1:47 PM EDT Tony Sheppard is a 66 year old year old male who presents for DR WATTERS. Last Office Visit: 08/28/2022 (in office), Visit date not found (telemedicine) [...] Encounters Date Type Specialty Care Team Description 11/05/2022 Office Visit Family Medicine Gold Zhang MD [address] [place] [address] 12/02/2022 Office Visit Dermatology Brooke Brannon PA-C [address] [facility] [place] [address] 12/15/2022 Office Visit Ophthalmology Felix Sanchez DO [address] [place] [address] Scheduled Procedures Name Priority Associated Diagnoses Date/Ti me COLONOSCOPY FLEXIBLE PROXIMAL DIAGNOSTIC Recall History of colon polyps Health Maintenance Due Date Last Done Comments DXA Scan 1955 COVID-19 Vaccine (4 - Booster) 04/18/2021 02/21/2021, 06/13/2020, 05/23/2020 Depression Screening, Annual for Pts 12 and Over 08/02/2021 08/02/2020 Yearly B-12 11/09/2021 11/09/2020, 0910/2018, 07/06/2018, Additional history exists DIABETES-FOOT EXAM 05/06/2022 05/06/2021, 0 01/10/2020, 01/05/2019, Additional history exists Albumin/Creatinine Ratio 07/11/2022 022, 05/25/2020, 07/06/2018, Additional history exists HbA1c 08/29/2022 02/28/2022, 02/02 (Done elsewhere), 07/11/2021, Additional history exists GFR 02/28/2023 02/28/2022, 07/02, 12/11/2020, Additional history exists DIABETES-EYE EXAM 08/29/2023 08/28/2022, , 07/05/2021, Additional history exists Pneumococcal Vaccine: 65+ Years (4 - PPSV23 if available, else PCV20) 03/30/2024 03/30/2019, 05/22/2017, 04/12/2003 COLONOSCOPY-EVERY 3 YRS AGES 18-100 07/31/2024 07/31/2021, 07/31/2021, 06/03/2007 Lipid Panel 02/28/2027 02/28/2022, 05/05, 01/06/2020, Additional history exists DTaP,Tdap,and Td Vaccines (3 - Td or Tdap) 11/25/2028 11/25/2018, 07/23/2009, 05/24/1999 Cologuard Discontinued 07/06/2017 Zoster Vaccines Completed 05/06/2021, 070 05/2020, 12/24/2016 Colonoscopy Discontinued 07/31/2021, 07/04, 06/03/2007 Colorectal Cancer Screening Discontinued Influenza Vaccine (FLU shot) Completed 03/21/2022, 03/18/2021, 02/23/2020, Additional history exists Fecal Occult Blood Test [...] this encounter Medical Devices Implanted Type Area Inspector And Adjuster Golf Club Head Device Identifier Shelf Expiration Date Model / Serial / Lot Clip Quick 2.8mm 230cm - [id number] Implanted:Qty: 1 on 07/31/2021 by Juan Jose Angulo MD at ENDOSCOPY [facility] Colon [employer] 12/02/2023 [id number]-202UR.[id number] / / [id number] documented as of this encounter Visit Diagnoses Diagnosis 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
--- OUTSIDE RECORDS SUMMARY | 2023-03-29 16:46 | External Medical Summary | Summary of Care ---
Author Name Unknown Organization [facility] Address [address] [facility] [place] [address] Phone [phone] Care Team Providers Care Surgery Manager Name Role Phone Gold Zhang MD Primary Care Provider + Reason for Visit * Reason Comments Follow Up Follow up on Ak's on scalp. Encounter Details Date Type Department Care Team Description 12/02/2022 Office Visit [facility]atology [facility] [place] [address] [facility] [address] Brooke Brannon PA-C [address] [facility] [place] [address] Actinic keratosis* Allergies Active Allergy Reactions Severity Noted Date Comments Exenatide 01/22/2015 Dizzy, lightheaded and nausea Lisinopril Cough Low 06/22/2013 documented as of this encounter (statuses as of 12/05/2022) Medications Medication Sig Dispensed Refills Start Date [...] Each 3 07/06/2018 Active Insulin Infusion Pump (TopFun 630G INSULIN PUMP) KIT Use as directed. 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 sees [facility] endo Dr Andrez Charles--has pump 07/23 [...] as of this encounter (statuses as of 12/05/2022) Resolved Problems Problem Noted Date Resolved Date [...] 03/01/2009 10/12/2014 Overview: Pt uses a medtronic Ge[employer] external insulin pump which requires the use [...] as of this encounter (statuses as of 12/05/2022) Immunizations Name Administration Dates Next Due COVID-19 [...] Influenza, Split, I IV3, With Preserve, Inj 02/10/2014,02/16/2013,02/12/2012,11/0 12/2010,01/31/2010,01/09/2009,02/28/20 08,04/02/2004,03/09/2002 TD - Tetanus/Diptheria (ADULT) 05/24/1999 0 [...] Progress Notes * Gold Reese MD - 12/05/2022 10:37 AM EDT I have reviewed the charting notes and orders and associated images and agree with the assessment and plan of Brooke Vigil PA-C . Gold Reese MD., Dermatology [facility] [address] [place] [address] * Brooke Brannon PA-C - 12/02/2022 3:13 PM EDT Nursing Notes: Kirstie Rodriguez LPN 12/02/22 1458 Signed Patient identified by name and date. Chief Complaint Patient presents with Follow Up Follow up on Ak's on scalp. SUBJECTIVE: HPI: Tony Sheppard is a 67 year old male who is an established patient seen for follow-up AKs. Patient last visit on 08/20/22. A. Skin, R frontal scalp, shave: Bowenoid actinic keratosis with adnexal extension, extending to the deep margin (see comment) Comment: There are superimposed features of seborrheic dermatitis. B. Skin, L frontal scalp, shave: Hypertrophic actinic keratosis Pt s/p PDT September 2022, still some scabbing on top of scalp None painful or bleeding. 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 REVIEW OF SYSTEMS: See HPI- all other [...] units/day. 50 Each 3 Insulin Infusion Pump (MINIMHeadCount 630G INSULIN PUMP) KIT Use as directed. 1 Kit 0 Glucose Blood (CONTOUR NEXT TEST) STR USE TO TEST BLOOD SUGAR UP TO 6 TIMES DAILY WITH MEDTRONIC INSULIN PUMP 600 Strip 3 Insulin Lispro 100 UNIT/ML Subcutaneous Solution (HumaLOG) USE FOR INSULIN PUMP (1 VIAL LASTS 3DAYS) 300 mL 1 Insulin Lispro 100 UNIT/ML Injection Solution (Humalog) INJECT 200 UNITS (2 ML) SUBCUTANEOUSLY DAILY 90 DAYS VIA INSULIN PUMP Ozempic (0.25 or 0.5 MG/DOSE) 2 MG/1.5ML Solution Pen-injector (Semaglutide(0.25 or 0.5MG/DOS))Inject 0.5 mg under the skin once a week. 1.5 mL 0 metFORMIN HCl ER 500 MG Oral Tablet Extended Release 24 Hour (Glucophage XR) TAKE 2 TABS TWICE A DAY Atorvastatin Calcium 40 MG Oral Tablet (Lipitor) TAKE 1 TABLET BY MOUTH EVERY DAY 90 Tablet 2 Metoprolol Succinate ER 50 MG Oral Tablet Extended Release 24 Hour (toPROL XL) TAKE 1 TABLET BYMOUTH EVERY DAY FOR BLOOD PRESSURE 90 Tablet 2 hydroCHLOROthiazide 25 MG Oral Tablet (Hydrodiuril) TAKE 1 TABLET BY MOUTH EVERY DAY 90 Tablet 2 Olmesartan Medoxomil 40 MG Oral Tablet (Benicar) TAKE 1 TABLET BY MOUTH EVERY DAY IN THE MORNING 90 Tablet 1 Current Facility-Administered Medications Medication Dose Route Frequency Provider Last Rate Last Admin bevaCIZumab (Avastin) inj 1.25 mg 1.25 mg Intravitreal PRN Felix Sanchez, DO 1.25 mg at 11/26/221516 ROPivacaine (Naropin) inj 1.5 mg 1.5 mg Perineural PRN Felix Sanchez, DO 1.5 mg at 11/26/22 1517 ALLERG Y: Bydureon [exenatide] and Lisinopril OBJECTIVE: GEN: Healthy, alert, no distress, appears oriented, pleasant and cooperative. PSYCH: Appropriate mood and affect, alert SKIN: Detailed exam of scalp was completed and are within normal limits with the following exceptions: 1. [place] scaling patches and hyperkeratotic plaques on crown of scalp ASSESSMENT/PLAN: 1. Actinic keratosis -Recommend topical Efudex 5% cream twice daily for 2-4 weeks to be applied to scalp. Patient advised that local skin reactions such as erythema (redness), blistering, irritation, itch, burning, and pain is expected with use of this medication and that individuals with brisk inflammatory response often obtain the best clinical response. Patient to stop if significant ulceration or irritation develops and is intolerable. Pt's will send myG in 1 month with photo to determine length of use of Efudex in fall. Patient alone today. Follow-up: 4 months Photos taken, patient consented to photos taken. Applicable photos (if any) and chart reviewed by Dr. Gold Reese The patient was encouraged to contact me with any further questions or concerns. Brooke Brannon PA-C 12/02/2022 3:13 PM documented in this encounter Nursing Notes * Kirstie Rodriguez LPN - 12/02/2022 2:58 PM EDT Patient identified by name and date. Chief Complaint Patient presents with Follow Up Follow up on Ak's on scalp. documented in this encounter Plan of Treatment Upcoming Encounters Date Type Specialty Care Team Description 01/13/2023 Office Visit Ophthalmology Felix Sanchez DO [address] [place] [address] 11/06/2023 Office Visit Family Medicine Gold Zhang MD [address] [place] [address] Scheduled Procedures Name Priority Associated Diagnoses Date/Ti [...] this encounter Medical Devices Implanted Type Area Vehicle Service Agent Device Identifier Shelf Expiration Date Model / Serial / Lot Clip Quick 2.8mm 230cm - [id number] Implanted:Qty: 1 on 07/31/2021 by Juan Jose Angulo MD at ENDOSCOPY [facility] Colon [employer] 12/02/2023 [id number]-202UR.A / / [id number] documented as of this encounter Procedures Procedure Name Priority Date/Time Associated Diagnosis Comments DERM IMAGE (SITE) Routine 12/02/2022 Actinic keratosis documented in this encounter Results * DERM IMAGE (SITE) (12/02/2022) 12/02/2022 Brooke Brannon PA-C DIGITAL NIGEL TOGRAPHY documented in this encounter Visit Diagnoses Diagnosis Actinic keratosis- Primary documented in this encounter Care Teams Surgery Manager Relationship Specialty Start Date End Date Gold Zhang MD [address] [place] [address] PCP - General Family Medicine 08/02/20 documented as of this encounter
--- OUTSIDE RECORDS SUMMARY | 2023-03-29 16:46 | External Medical Summary | Summary of Care ---
Author Name Unknown Organization [facility] Address [address] [facility] [place] [address] Phone [phone] Care Team Providers Care Assistant Tennis Professional Name Role Phone Gold Zhang MD Primary Care Provider + Reason for Visit * Reason Comments Follow Up " I have a bleed in my right eye, everything is dark, started last week" * Precert (Within 10 days (routine)) - Authorized Specialty Diagnoses / Procedures Referred By Shayy dumont Referred To Contact Ophthalmology Diagnoses Type 2 diabetes mellitus with proliferative diabetic retinopathy with macular edema, right eye (HCC) Procedures INECTION,BEVACIZUMAB, 10 MG ID INTRAVITREAL NJX PHARMACOLOGIC AGT SPX Felix Sanchez DO [address] [place] [address] Referral ID Status Reason Start Date Expiration Date V isits Requested Visits Authorized [id number] Authorized Precert 04/30/2021 05/03/2099 99 99 Encounter Details Date Type Department Care Team Description 11/26/2022 Office Visit Ophthalmology, [facility] [address] [place] [address] Felix Sanchez DO [address] [place] [address] 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 1 Kit 0 07/06/2018 Active Glucose Blood (CONTOUR NEXT TEST) STRP USE TO TEST BLOOD SUGAR UP TO 6 TIMES DAILY WITH Stack[employer]ptTRONIC INSULIN PUMP 600 Strip 3 09/28/2019 Active [...] right eye and macular edema, unspecified whether intermodal customer service insulin use (HCC) 1.5 mg PERINEURAL PRN 11/26/2022 11/26/2023 Active documented as of this encounter (statuses as of 11/26/2022) Active Problems Problem Noted Date Vertigo 11/05/2022 Overview: intermittent positional vertigo that he has had almost all his life Arthritis of both hands 05/07/2022 History of 2019 novel coronavirus diseas e (COVID-19) 05/28/2021 Overview: 05/25 Well adult exam 11/01/2020 Overview: Ortho Dr Magana. sees [facility] endo Dr Andrez Charles--has pump 07/23 colon [...] 03/01/2009 10/12/2014 Overview: Pt uses a medtronic ATRP Solutions external insulin pump which requires the use of Transerv contour next test strips ICD-10 update of [...] Influenza, Split, I IV3, With Preserve, Inj 02/10/2014,02/16/2013,02/12/2012,11/12/2010,01/31/2010,01/09/2009,02/28/20 08,04/02/2004,03/09/2002 TD - Tetanus/Diptheria (ADULT) 05/24/1999 0 [...] Progress Notes * Felix Sanchez DO - 11/26/2022 2:45 PM EDT [facility] [place] Nursing notes reviewed. Mood and affect: normal HPI: Tony Sheppard is a 67 year old male who presents for DR, old CRVO OD. No other eye complaints. Denies significant pain. Base Eye Exam Visual Acuity (Snellen - Linear) Right Left Dist sc 20/70 +1 20/30 +1 Dist ph sc NI Tonometry (Tonopen, 2:32 PM) Right Left Pressure 13 10 Pupils Pupils Light Shape React APD Right PERRL 3 Round Brisk None Left PERRL 3 Round Brisk None Visual Huerta (Counting fingers) Right Left Full Full Extraocular Movement Right Left Full Full Neuro/Psych Oriented x3: Yes Dilation Both eyes: 0.5% Proparacaine @ 2:31 PM Dilation #2 Right eye: 1.0% Mydriacyl, 2.5% Phenylephrine @ 2:31 PM Dilation Comments Patient cautioned that effects [...] wnl, no csme vessels: av nicking midperiphery: +brownfield program coordinator periphery: no RT/RD OCT Interpretation: OD: temporal thinning, central fovea clear, +trace ERM, no PVD - STABLE, prior STABLE, prior STABLE OS: no CME/SRFluid, no PVD - STABLE, prior STABLE, prior STABLE Fundus Photo Interpretation - 02/10/17: OD: +regressed NVD, +brownfield program coordinator, old FML OS: n/a A/P: 1. Diabetic [...] documented in this encounter Nursing Notes * KYMBERLY Marroquin - 11/26/2022 2:47 PM EDT Tony Sheppard to receive # 16 Avastin 1.25mg Injection of the Right eye. Correct eye confirmed with patient and marked by Felix Sanchez, Avastin 1.25mg lot # [id number] Exp. Date: 01/01/23 * Radha Bell RN - 11/26/2022 2:34 PM EDT Tony Sheppard is a 67 year old year old male who presents for DR WATTERS. Last Office Visit: 10/22/2022 (in office), Visit date not found (telemedicine) Patient currently states " I have a bleed in my right eye, everything is dark, started last week" Are you diabetic? Yes. Do you check [...] Do you drive? yes OCT image(s) of right eye acquired and filed/scanned into chart. documented in this encounter Plan of Treatment Upcoming Encounters Date Type Specialty Care Team Description 12/02/2022 Office Visit Dermatology Brooke Brannon PA-C [address] [facility] [place] [address] 12/15/2022 Office Visit Ophthalmology Felix Sanchez DO [address] [place] [address] 11/06/2023 Office Visit Family Medicine Gold Zhang MD [address] [place] [address] Scheduled Procedures Name Priority Associated Diagnoses Date/Ti [...] this encounter Medical Devices Implanted Type Area Gm Device Identifier Shelf Expiration Date Model / Serial / Lot Clip Quick 2.8mm 230cm - [id number] Implanted:Qty: 1 on 07/31/2021 by Juan Jose Angulo MD at ENDOSCOPY 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, unspecified whether residential insulin use (HCC)- Primary documented in this encounter Administered Medications Active Administered Medications - up to 3 most recent administrations Medication Order MAR Action Action Date Dose Rate Site bevaCIZumab (Avastin) inj 1.25 mg 1.25 mg, Intravitreal, PRN Other, Starting on Thu11/26/22 at 1502, Until On[place] 11/26/23 at 1501, For 365 days Given 11/26/2022 3:17 PM EDT 1.25 mg Eye R ight ROPivacaine (Naropin) inj 1.5 mg 1.5 mg, Perineural, PRN Other, Starting on Thu11/26/22 at 1502, Until [place] 11/26/23 at 1501, For 365 days Given 11/26/2022 3:17 PM EDT 1.5 mg Eye R ight documented in this encounter Care Teams Assistant Tennis Professional Relationship Specialty Start Date End Date Gold Zhang MD [address] [place] [address] PCP - General Family Medicine 08/02/20 documented as of this encounter
--- OUTSIDE RECORDS SUMMARY | 2023-03-29 16:46 | External Medical Summary | Summary of Care ---
Author Name Unknown Organization [facility] Address [address] [facility] [place] [address] Phone [phone] Care Team Providers Care Shell Fisherman Name Role Phone Gold Zhang MD Primary Care Provider + Reason for Visit * Reason Onset Date Comments Appointment 11/19/2022 MRI Encounter Details Date Type Department Care Team Description 11/19/2022 Telephone Radiology [address] [place] [address] Andreia Ackerman, RT (R) Appointment (/MRI) Allergies Active Allergy Reactions Severity Noted Date Comments Exenatide 01/22/2015 Dizzy, lightheaded and nausea Lisinopril Cough Low 06/22/2013 documented as of this encounter (statuses as of 11/19/2022) Medications Medication Sig Dispensed Refills Start Date [...] Each 3 07/06/2018 Active Insulin Infusion Pump (MINIMOdimax 630G INSULIN PUMP) KIT Use as directed. 1 Kit 0 07/06/2018 Active Glucose Blood (CONTOUR NEXT TEST) STRP USE TO TEST BLOOD SUGAR UP TO 6 TIMES DAILY WITH [employer] INSULIN PUMP 600 Strip 3 09/28/2019 Active [...] as of this encounter (statuses as of 11/19/2022) Active Problems Problem Noted Date Vertigo 11/05/2022 Overview: intermittent positional vertigo that he has had almost all his life Arthritis of both hands 05/07/2022 History of 2019 novel coronavirus diseas e (COVID-19) 05/28/2021 Overview: 05/25 Well adult exam 11/01/2020 Overview: Ortho Dr Magana. sees [facility] endo Dr Andrez Charles--has pump 07/23 [...] as of this encounter (statuses as of 11/19/2022) Resolved Problems Problem Noted Date Resolved Date [...] insulin pump which requires the use of Alector contour next test strips ICD-10 update of [...] as of this encounter (statuses as of 11/19/2022) Immunizations Name Administration Dates Next Due COVID-19 [...] 12/02/2022 Office Visit Dermatology Brooke Brannon PA-C [address] [place] [address] 12/15/2022 Office Visit Ophthalmology Felix Sanchez DO [address] [place] [address] 11/06/2023 Office Visit Family Medicine Gold Zhang MD [address] [place] [address] Scheduled Procedures Name Priority Associated Diagnoses Date/Ti [...] this encounter Medical Devices Implanted Type Area Clinic Business Manager Device Identifier Shelf Expiration Date Model / Serial / Lot Clip Quick 2.8mm 230cm - [id number] Implanted:Qty: 1 on 07/31/2021 by Juan Jose Angulo MD at ENDOSCOPY [facility] Colon [employer] 12/02/2023 [id number]-[id number] / / [id number] documented as of this encounter Care Teams Shell Fisherman Relationship Specialty Start Date End Date Gold Zhang MD [address] [place] [address] PCP - General Family Medicine 08/02/20 documented as of this encounter
--- OUTSIDE RECORDS SUMMARY | 2023-03-29 16:46 | External Medical Summary | Summary of Care ---
Author Name Unknown Organization [facility] Address [address] [facility] [place] [address] Phone [phone] Care Team Providers Care M[employer] Acquisitions Consultant Name Role Phone Kelli Santos MD Primary Care Provider + Reason for Visit * Reason Comments eRx-Medication Refill Encounter Details Date Type Department Care Team Description 10/19/[address] [facility] [address] [place] [address] Kelli Santos MD [address] [place] [address] Microalbuminuric diabetic nephropathy (HCC) Allergies Active Allergy Reactions Severity Noted Date Comments Exenatide 01/22/2015 Dizzy, lightheaded and nausea Lisinopril Cough Low 06/22/2013 documented as of this encounter (statuses as of 10/21/2022) Medications Medication Sig Dispensed Refills Start Date End Date Status ASPIRIN 81 MG PO TABSIndications:HT N, goal below 140/90 one tab by mouth daily 34 0 6 Active ONETOUCH ULTRA 2 W/DEVICE KITIndications:DM type 2, goal A1c below 7 Use as directed. 1 Kit 0 2 Active ONETOUCH ULTRASOFT LANCETS MISCIndications:DM type 2, goal A1c below 7 Use as directed. 300 [address] 3 2 Active hydrocortisone 2.5%-clotrimazole 1% 1:1Indications:Ang ular cheilitis Apply to corners of the lips twice daily as needed for flares. 30 g 2 8 Active Insulin Infusion Pump Supplies (STEFFI INFUSION SET 18" 6MM) MISCIndications:Ty pe 2 diabetes mellitus with hemoglobin A1c goal of less than 8.0% (HCC) Use with insulin pump. Change every 1-2 days or as directed. ICD10: E11.9 30 Each 3 9 Active Insulin Infusion Pump Supplies (PARADIGM PUMP RESERVOIR 3ML) MISCIndications:Ty pe 2 diabetes mellitus with hemoglobin A1c goal of less than 8.0% (HCC) Use every 1-2 days for insulin pump. Uses approximately 120 units/day. 50 Each 3 9 Active Insulin Infusion Pump (MINIMZhenai 630G INSULIN PUMP) KIT Use as directed. 1 Kit 0 9 Active Glucose Blood (CONTOUR NEXT TEST) STRP USE TO TEST BLOOD SUGAR UP TO 6 TIMES DAILY WITH [employer] INSULIN PUMP 600 Strip 3 0 Active Additional Information Patient not taking.Reported on 09/08/2022 Insulin Lispro 100 UNIT/ML Subcutaneous Solution (HumaLOG)Indicatio ns:Diabetic polyneuropathy (HCC),Diabetes mellitus with background retinopathy (HCC),Type 2 diabetes mellitus with hemoglobin A1c goal of less than 8.0% (HCC) USE FOR INSULIN PUMP (1 VIAL LASTS 3 DAYS) 300 mL 1 1 Active Fluorouracil 5 % External Cream (Efudex) Apply to site on scalp twice daily x 2 weeks 40 g 0 2 Active Cyclobenzaprine HCl 5 MG Oral Tablet (Flexeril)Indicati ons:Acute left-sided thoracic back pain Take by mouth 1 Tablet as needed before bedtime for Muscle spasms. 14 Tablet 0 2 Active metFORMIN HCl 500 MG Oral Tablet (Glucophage) Take 2 Tablets by mouth in the morning and 2 Tablets before bedtime. 0 2 Active Insulin Lispro 100 UNIT/ML Injection Solution (Humalog) INJECT 200 UNITS (2 ML) SUBCUTANEOUSLY DAILY 90 DAYS VIA INSULIN PUMP 0 2 Active Canagliflozin 300 MG Oral Tablet (Invokana)Indicati ons:Diabetic polyneuropathy (HCC) TAKE ONE TABLET BY MOUTH EVERY MORNING 90 Tablet 9 2 023 Active Ozempic (0.25 or 0.5 MG/DOSE) 2 MG/1.5ML Solution Pen-injector (Semaglutide(0.25 or 0.5MG/DOS)) Inject 0.5 mg under the skin once a week. 1.5 mL 0 3 Active metFORMIN HCl ER 500 MG Oral Tablet Extended Release 24 Hour (Glucophage XR) TAKE 2 TABS TWICE A DAY 0 3 Active Atorvastatin Calcium 40 MG Oral Tablet (Lipitor)Indicatio ns:Dyslipidemia, goal LDL below 100 TAKE 1 TABLET BY MOUTH EVERY DAY 90 Tablet 2 3 Active Metoprolol Succinate ER 50 MG Oral Tablet Extended Release 24 Hour (toPROL XL)Indications:Ess ential hypertension with goal blood pressure less than 140/90 TAKE 1 TABLET BY MOUTH EVERY DAY FOR BLOOD PRESSURE 90 Tablet 2 3 Active hydroCHLOROthiazid e 25 MG Oral Tablet (Hydrodiuril)Indic ations:Essential hypertension with goal blood pressure less than 140/90 TAKE 1 TABLET BY MOUTH EVERY DAY 90 Tablet 2 3 Active Olmesartan Medoxomil 40 MG Oral Tablet (Benicar)Indicatio ns:Microalbuminuri c diabetic nephropathy (HCC) TAKE 1 TABLET BY MOUTH EVERY DAY IN THE MORNING 90 Tablet 1 3 Active Olmesartan Medoxomil 40 MG Oral Tablet (Benicar)Indicatio ns:Microalbuminuri c diabetic nephropathy (HCC) TAKE BY MOUTH 1 TABLET IN THE MORNING. 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, unspecified whether predatory animal exterminator insulin use (HCC) 1.5 mg PERINEURAL PRN 05/26/2022 05/26/2023 Active documented as of this encounter (statuses as of 10/21/2022) Active Problems Problem Noted Date Arthritis of [...] as of this encounter (statuses as of 10/21/2022) Resolved Problems Problem Noted Date Resolved Date [...] 7.0% 03/01/2009 10/12/2014 Overview: Pt uses a VSoft external insulin pump which requires the use of Microventures contour next test strips ICD-10 update of [...] as of this encounter (statuses as of 10/21/2022) Immunizations Name Administration Dates Next Due COVID-19 [...] encounter Miscellaneous Notes * Telephone Encounter - Jonathan Schmidt RPh - 10/21/2022 8:11 AM EDTSigned Prescriptions: Disp Refills Olmesartan Medoxomil 40 MG Oral Tablet (Be*90 Tab*1 Sig: TAKE 1 TABLET BY MOUTH EVERY DAY IN THE MORNINGAuthorizing Provider: KELLI SANTOS User: JONATHAN JARRETT documented in this encounter Plan of Treatment Upcoming Encounters Date Type Specialty Care Team Description 10/22/2022 Office Visit Ophthalmology Felix Sanchez DO [address] [place] [address] 11/05/2022 Office Visit Family Medicine Kelli Santos MD [address] [place] [address] 12/02/2022 Office Visit Dermatology Brooke Brannon PA-C [address] [facility] [place] [address] Scheduled Procedures Name Priority Associated Diagnoses Date/Ti [...] this encounter Medical Devices Implanted Type Area Assistant Program Director Device Identifier Shelf Expiration Date Model / Serial / Lot Clip Quick 2.8mm 230cm - [id number] Implanted:Qty: 1 on 07/31/2021 by Juan Jose Angulo MD at ENDOSCOPY [facility] Colon [employer] 12/02/2023 [id number]-[id number].A / / [id number] documented as of this encounter Visit Diagnoses Diagnosis Microalbuminuric diabetic nephropathy (HCC) Type II or unspecified type diabetes mellitus with renal manifestations, not stated as uncontrolled documented in this encounter Care Teams Mergers And Acquisitions Consultant Relationship Specialty Start Date End Date Kelli Santos MD [address] [place] [address] PCP - General Family Medicine 08/02/20 documented as of this encounter
--- OUTSIDE RECORDS SUMMARY | 2023-03-29 16:46 | External Medical Summary | Summary of Care ---
Author Name Unknown Organization [facility] Address [address] [facility] [place] [address] Phone [phone] Care Team Providers Care Petal Shaper Hand Name Role Phone Gold Zhang MD Primary [...] right eye (HCC) Procedures INECTION,BEVACIZUMAB, 10 MG [place] INTRAVITREAL NJX PHARMACOLOGIC AGT SPX Felix Sanchez DO [address] [place] [address] Referral ID Status Reason Start Date Expiration Date V isits Requested Visits Authorized [id number] Authorized Precert 04/30/2021 05/03/2099 99 99 Encounter Details Date Type Department Care Team Description 11/26/2022 Office Visit Ophthalmology, [facility] [address] [place] [address] Felix Sanchez DO [address] [place] [address] 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)* Allergies Active Allergy Reactions Severity Noted Date [...] Each 3 07/06/2018 Active Insulin Infusion Pump (MINIMVasoGenix 630G INSULIN PUMP) KIT Use as directed. 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 sees [facility] endo Dr Andrez Charles--has pump [...] 03/01/2009 10/12/2014 Overview: Pt uses a medtronic Where Was it Filmed external insulin pump which requires the use of 2345.com contour next test strips ICD-10 update of [...] - 11/26/2022 2:45 PM EDT [facility] [place] Nursing notes reviewed. 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 Diabetic [...] by Felix Sanchez, Avastin 1.25mg lot # [id number] Exp. Date: 01/01/23 * Radha Bell RN [...] 12/02/2022 Office Visit Dermatology Brooke Brannon PA-C [address] [facility] [place] [address] 12/15/2022 Office Visit Ophthalmology Felix Sanchez DO [address] [place] [address] 11/06/2023 Office Visit Family Medicine Gold Zhang MD [address] [place] [address] Scheduled Procedures Name Priority Associated Diagnoses Date/Ti [...] this encounter Medical Devices Implanted Type Area Mining And Quarrying Machinery Repairer Device Identifier Shelf Expiration Date Model / Serial / Lot Clip Quick 2.8mm 230cm - [id number] Implanted:Qty: 1 on 07/31/2021 by Juan Jose Angulo MD at ENDOSCOPY [facility] Colon [employer] 12/02/2023 [id number]-202UR.A / / [id number] documented as of this encounter Visit Diagnoses Diagnosis 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
--- OUTSIDE RECORDS SUMMARY | 2023-03-29 16:46 | External Medical Summary | Summary of Care ---
Author Name Unknown Organization [facility] Address [address] [facility] [place] [address] Phone [phone] Care Team Providers Care Livestock Farmers Name Role Phone Gold Zhang MD Primary [...] NJX PHARMACOLOGIC AGT SPX Felix Sanchez DO [address] [place] [address] Referral ID Status Reason Start Date Expiration Date V isits Requested Visits Authorized [id number] Authorized Precert 04/30/2021 05/03/2099 99 99 Encounter Details Date Type Department Care Team Description 10/22/2022 Office Visit Ophthalmology, [facility] [address] [place] [address] Felix Sanchez DO [address] [place] [address] 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, unspecified whether [facility] insulin use (HCC)* Allergies Active Allergy Reactions [...] right eye and macular edema, unspecified whether long term care phlebotomist insulin use (HCC) 1.25 mg IZ PRN 05/26/2022 05/26/2023 Active ROPivacaine (Naropin) inj 1.5 mgIndications: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 [...] wnl, no csme vessels: av nicking midperiphery: +communication specialist periphery: no RT/RD OCT Interpretation: OD: temporal thinning, central fovea clear, +trace ERM, no PVD - STABLE, prior STABLE, prior STABLE OS: no CME/SRFluid, no PVD - STABLE, prior STABLE, prior STABLE Fundus Photo Interpretation - 02/10/17: OD: +regressed NVD, +communication specialist, old FML OS: n/a A/P: 1. Diabetic [...] documented in this encounter Nursing Notes * Radha Bell RN - 10/22/2022 1:47 PM EDT [...] Zhang MD [address] [place] [address] 12/02/2022 Office Visit Dermatology Brooke Brannon PA-C [address] [facility] [place] [address] 12/15/2022 Office Visit Ophthalmology Felix Sanchez DO [address] [place] [address] Scheduled Procedures Name Priority Associated Diagnoses Date/Ti [...] this encounter Medical Devices Implanted Type Area Tableau Developer Device Identifier Shelf Expiration Date Model / Serial / Lot Clip Quick 2.8mm 230cm - [id number] Implanted:Qty: 1 on 07/31/2021 by Juan Jose Angulo MD at ENDOSCOPY [facility] Colon [employer] 12/02/2023 [id number]-[id number].A / / [id number] documented as of this encounter Visit Diagnoses Diagnosis 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
--- OUTSIDE RECORDS SUMMARY | 2023-03-29 16:46 | External Medical Summary | Summary of Care ---
Author Name Unknown Organization [facility] Address [address] [facility] [place] [address] Phone [phone] Care Team Providers Care Research Aide Name Role Phone Gold Zhang MD Primary Care Provider + Reason for Visit * Reason Comments Return Visit 6 month return Encounter Details Date Type Department Care Team Description 11/05/2022 Office Visit Family Practice [facility] [address] [place] [address] Gold Zhang MD [address] [place] [address] Diabetes mellitus with background retinopathy (HCC)*; Vertigo; Dyslipidemia, goal LDL below 100; Essential hypertension with goal blood pressure less than 140/90 Allergies Active Allergy Reactions Severity Noted Date Comments Exenatide 01/22/2015 Dizzy, lightheaded and nausea Lisinopril Cough Low 06/22/2013 documented as of this encounter (statuses as of 11/05/2022) Medications Medication Sig Dispensed Refills Start Date End Date Status ASPIRIN 81 MG PO TABSIndications:HTN , goal below 140/90 one tab by mouth daily 34 0 6 Active ONETOUCH ULTRA 2 W/DEVICE KITIndications:DM type 2, goal A1c below 7 Use as directed. 1 Kit 0 2 Active ONETOUCH ULTRASOFT LANCETS MISCIndications:DM type 2, goal A1c below 7 Use as directed. 300 Box 3 2 Active hydrocortisone 2.5%-clotrimazole 1% 1:1Indications:Angu lar cheilitis Apply to corners of the lips twice daily as needed for flares. 30 g 2 8 Active Insulin Infusion Pump Supplies (STEFFI INFUSION SET 18" 6MM) MISCIndications:Typ e 2 diabetes mellitus with hemoglobin A1c goal of less than 8.0% (HCC) Use with insulin pump. Change every 1-2 days or as directed. ICD10: E11.9 30 Each 3 9 Active Insulin Infusion Pump Supplies (PARADIGM PUMP RESERVOIR 3ML) MISCIndications:Typ e 2 diabetes mellitus with hemoglobin A1c goal of less than 8.0% (HCC) Use every 1-2 days for insulin pump. Uses approximately 120 units/day. 50 Each 3 9 Active Insulin Infusion Pump (MINIMSentreHEART 630G INSULIN PUMP) KIT Use as directed. 1 Kit 0 9 Active Glucose Blood (CONTOUR NEXT TEST) STRP USE TO TEST BLOOD SUGAR UP TO 6 TIMES DAILY WITH [employer] INSULIN PUMP 600 Strip 3 0 Active Insulin Lispro 100 UNIT/ML Subcutaneous Solution (HumaLOG)Indication s:Diabetic polyneuropathy (HCC),Diabetes mellitus with background retinopathy (HCC),Type 2 diabetes mellitus with hemoglobin A1c goal of less than 8.0% (HCC) USE FOR INSULIN PUMP (1 VIAL LASTS 3 DAYS) 300 mL 1 1 Active Insulin Lispro 100 UNIT/ML Injection Solution (Humalog) INJECT 200 UNITS (2 ML) SUBCUTANEOUSLY DAILY 90 DAYS VIA INSULIN PUMP 0 2 Active Canagliflozin 300 MG Oral Tablet (Invokana)Indicatio ns:Diabetic polyneuropathy (HCC) TAKE ONE TABLET BY MOUTH EVERY MORNING 90 Tablet 9 2 11/15/19 23 Active Ozempic (0.25 or 0.5 MG/DOSE) 2 MG/1.5ML Solution Pen-injector (Semaglutide(0.25 or 0.5MG/DOS)) Inject 0.5 mg under the skin once a week. 1.5 mL 0 3 Active metFORMIN HCl ER 500 MG Oral Tablet Extended Release 24 Hour (Glucophage XR) TAKE 2 TABS TWICE A DAY 0 3 Active Atorvastatin Calcium 40 MG Oral Tablet (Lipitor)Indication s:Dyslipidemia, goal LDL below 100 TAKE 1 TABLET BY MOUTH EVERY DAY 90 Tablet 2 3 Active Metoprolol Succinate ER 50 MG Oral Tablet Extended Release 24 Hour (toPROL XL)Indications:Esse ntial hypertension with goal blood pressure less than 140/90 TAKE 1 TABLET BY MOUTH EVERY DAY FOR BLOOD PRESSURE 90 Tablet 2 3 Active hydroCHLOROthiazide 25 MG Oral Tablet (Hydrodiuril)Indica tions:Essential hypertension with goal blood pressure less than 140/90 TAKE 1 TABLET BY MOUTH EVERY DAY 90 Tablet 2 3 Active Olmesartan Medoxomil 40 MG Oral Tablet (Benicar)Indication s:Microalbuminuric diabetic nephropathy (HCC) TAKE 1 TABLET BY MOUTH EVERY DAY IN THE MORNING 90 Tablet 1 3 Active Fluorouracil 5 % External Cream (Efudex) Apply to site on scalp twice daily x 2 weeks 40 g 0 2 11/06/19 Discontinu ed(Medicat ion List Clean Up) Cyclobenzaprine HCl 5 MG Oral Tablet (Flexeril)Indicatio ns:Acute left-sided thoracic back pain Take by mouth 1 Tablet as needed before bedtime for Muscle spasms. 14 Tablet 0 2 11/06/19 Discontinu ed(Medicat ion List Clean Up) metFORMIN HCl 500 MG Oral Tablet (Glucophage) Take 2 Tablets by mouth in the morning and 2 Tablets before bedtime. 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 sees [facility] endo Dr Andrez Charles--has pump 07/23 colon [...] as of this encounter (statuses as of 11/05/2022) Resolved Problems Problem Noted Date Resolved Date [...] 7.0% 03/01/2009 10/12/2014 Overview: Pt uses a [employer] Edvivo external insulin pump which requires the use [...] as of this encounter (statuses as of 11/05/2022) Immunizations Name Administration Dates Next Due COVID-19 [...] Never Smokeless Tobacco: Never Tobacco Cessation:Counseling Given: Not Answered Alcohol Use Standard Drinks/Week Comments Yes 0 [...] Sign Reading Time Taken Comments Blood Pressure 116/72 11/05/2022 8:14 AM EDT Pulse 90 11/05/2022 8:14 AM EDT Temperature - - Respiratory Rate 16 11/05/2022 8:14 AM EDT Oxygen Saturation 96% 11/05/2022 8:14 AM EDT Inhaled Oxygen Concentration - - Weight 98.9 kg (218 lb 1 oz) 11/05/2022 8:14 AM EDT Height - - Body Mass Index 34.15 05/07/2022 8:49 AM EST documented in this encounter Progress Notes * Gold Zhang MD - 11/05/2022 8:58 AM EDT SUBJECTIVE: Tony Sheppard is a 66 year old male here for Return Visit (6 month return) . Here for f/u Getting DM labs /mgmt with Dr Charles [facility] Endo. Labs /notes reviewed No polyuria/dipsia. He is having chronic knee arthritis pain. Plans on surgery with Dr. Magana later this year. He has had some chronic low back pain as well but not as bad as knee pain. He is getting a MRI of his lumbar spine this month and if showing anything severe is open to getting epidural steroid injection. No weakness/numbness/incontinence Physical: BP 116/72 | Pulse 90 | Resp 16 | Wt 98.9 kg (218 lb 1 oz) | SpO2 96% | BMI 34.15 kg/m | BSA 2.16 m General-No apparent Distress Head, Eyes, Ears, Nose, Throat--Normocephalic, atraumatic Neck-Supple Lymph-no lymphadenopathy Lungs-Clear to Auscultation bilaterally Cardiovascular--Regular rate & Rhythm, +s1, s2, no murmur Abdomen-soft, nontender, nondistended + bowel sounds Extremities--no edema Neuro-alert & oriented x3 (E11.3299) Diabetes mellitus with background retinopathy (HCC) (primary encounter diagnosis) Plan: cont mgmt endo Labs reviewed at goal (R42) Vertigo Plan positional--manages ok (E78.5) Dyslipidemia, goal LDL below 100 Plan: at goal cont mgmt (I10) Essential hypertension with goal blood pressure less than 140/90 Plan: at goal cont mgmt Knee-f/u ortho Back-consider pain med fu post MRI (This note was completed using the dictation program Fluency Direct. As such, there may be misspellings, word substitutions, or other variations that should not change the essence of the clinical content of this encounter note.If there is need for further clarification, please direct questions to the provider listed above.) Gold Zhang MD documented in this encounter Nursing Notes * Veronica Suazo LPN - 11/05/2022 8:14 AM EDT The patient has been properly identified by confirmation of name and date of . Chief Complaint Patient presents with Return Visit 6 month return documented in this encounter Plan of Treatment Upcoming Encounters Date Type Specialty Care Team Description 11/25/2022 Imaging Radiology 12/02/2022 Office Visit Dermatology Brooke Brannon PA-C [address] [facility] [place] [address] 12/15/2022 Office Visit Ophthalmology Felix Sanchez DO [address] [place] [address] 11/06/2023 Office Visit Family Medicine Gold Zhang MD [address] [place] [address] Scheduled Procedures Name Priority Associated Diagnoses Date/Ti me COLONOSCOPY FLEXIBLE PROXIMAL DIAGNOSTIC Recall History of colon polyps Health Maintenance Due Date Last Done Comments DXA Scan 1955 COVID-19 Vaccine (4 - Moderna series) 04/18/2021 02/21/2021, 06/13/2020, 05/23/2020 Yearly B-12 11/09/2021 11/09/2020, 0910/2018, 07/06/2018, Additional history exists Albumin/Creatinine Ratio 07/11/2022 022, [...] Pneumococcal Vaccine: 65+ Years (3 - PPSV23 if available, else PCV20) 03/30/2024 [...] this encounter Medical Devices Implanted Type Area Senior Health Physics Technician Device Identifier Shelf Expiration Date Model / Serial / Lot Clip Quick 2.8mm 230cm - [id number] Implanted:Qty: 1 on 07/31/2021 by Juan Jose Angulo MD at ENDOSCOPY [facility] Colon [employer] 12/02/2023 [id number]-202UR.A / / [id number] documented as of this encounter Visit Diagnoses Diagnosis Diabetes mellitus with background retinopathy (HCC)- Primary Vertigo Dizziness and giddiness Dyslipidemia, goal LDL below 100 Other and unspecified hyperlipidemia Essential hypertension with goal blood pressure less than 140/90 documented in this encounter Care Teams Research Aide Relationship Specialty Start Date End Date Gold Zhang MD [address] [place] [address] PCP - General Family Medicine 08/02/20 documented as of this encounter
--- OUTSIDE RECORDS SUMMARY | 2023-03-29 16:46 | External Medical Summary | Summary of Care ---
Author Name Unknown Organization [facility] Address [address] [facility] [place] [address] Phone [phone] Care Team Providers Care Operator Assistant I Cementing Name Role Phone Gold Zhang MD Primary Care Provider + Reason for Visit * Reason Comments Follow Up Follow up on Ak's on scalp. Encounter Details Date Type Department Care Team Description 12/02/2022 Office Visit [facility]at[facility] [place] [address] [facility] [address] Brooke Brannon PA-C [address] [facility] [place] [address] Actinic keratosis* Allergies Active Allergy Reactions [...] Each 3 07/06/2018 Active Insulin Infusion Pump (DigitalOcean 630G INSULIN PUMP) KIT Use as directed. 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 sees [facility] endo Dr Andrez Charles--has pump 07/23 [...] 03/01/2009 10/12/2014 Overview: Pt uses a medtronic Equiendo external insulin pump which requires the use of dolores contour next test strips ICD-10 update of inactive term PURE HYPERCHOLESTEROLEM 05/23/2005 12/10/20 09 Overview: Per Lipid Taxonomy. OBESITY, UNSPECIFIED [...] Progress Notes * Brooke Brannon PA-C - 12/02/2022 3:13 [...] units/day. 50 Each 3 Insulin Infusion Pump ([email or web address].do 630G INSULIN PUMP) KIT Use as directed. [...] normal limits with the following exceptions: 1. Purple Sage scaling patches and hyperkeratotic plaques on crown [...] Sanchez DO [address] [place] [address] 11/06/2023 Office Visit Family Medicine Gold Zhang MD [address] [place] [address] Scheduled Procedures Name Priority Associated Diagnoses Date/Ti [...] this encounter Medical Devices Implanted Type Area Geriatric Nursing Assistant Device Identifier Shelf Expiration Date Model / Serial / Lot Clip Quick 2.8mm 230cm - [id number] Implanted:Qty: 1 on 07/31/2021 by Juan Jose Angulo MD at ENDOSCOPY [facility] Colon [employer] 12/02/2023 [id number]-202UR.[id number] / / [id number] documented as of this encounter Procedures Procedure Name Priority Date/Time Associated Diagnosis Comments DERM IMAGE (SITE) Routine 12/02/2022 Actinic keratosis documented in this encounter Results * DERM IMAGE (SITE) (12/02/2022) 12/02/2022 Brooke Brannon PA-C DIGITAL NIGEL TOGRAPHY documented in this encounter Visit Diagnoses Diagnosis Actinic keratosis- Primary documented in this encounter Care Teams Operator Assistant I Cementing Relationship Specialty Start Date End Date Gold Zhang MD [address] [place] [address] PCP - General Family Medicine 08/02/20 documented as of this encounter
--- OUTSIDE RECORDS SUMMARY | 2023-03-29 16:46 | External Medical Summary | Summary of Care ---
Author Name Unknown Organization [facility] Address [address] [facility] [place] [address] Phone [phone] Care Team Providers Care Studio Sales Associate Name Role Phone Gold Zhang MD Primary Care Provider + Reason for Visit * Reason Comments Return Visit 6 month return Encounter Details Date Type Department Care Team Description 11/05/2022 Office Visit Family Practice [facility] [address] [place] [address] Gold Zhang MD [address] [place] [...] Each 3 9 Active Insulin Infusion Pump (MINIMTus reQRdos 630G INSULIN PUMP) KIT Use as directed. 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 sees [facility] endo Dr Andrez Charles--has pump 07/23 [...] 7.0% 03/01/2009 10/12/2014 Overview: Pt uses a Zenvergetronic MoneyMenttor external insulin pump which requires the use [...] DM labs /mgmt with Dr Charles [facility] Endo. Labs /notes reviewed No polyuria/dipsia. He [...] 12/02/2022 Office Visit Dermatology Brooke Brannon PA-C [address] [facility] [place] [address] 12/15/2022 Office Visit Ophthalmology Felix Sanchez DO [address] [place] [address] 11/06/2023 Office Visit Family Medicine Gold Zhang MD [address] [place] [address] Scheduled Procedures Name Priority Associated Diagnoses Date/Ti [...] this encounter Medical Devices Implanted Type Area Marketing Rotation Associate Device Identifier Shelf Expiration Date Model / Serial / Lot Clip Quick 2.8mm 230cm - [id number] Implanted:Qty: 1 on 07/31/2021 by Juan Jose Angulo MD at ENDOSCOPY [facility] Colon [employer] 12/02/2023 [id number]-[id number] / / [id number] documented as of this encounter Visit Diagnoses Diagnosis Diabetes mellitus with background retinopathy (HCC)- Primary Vertigo Dizziness and giddiness Dyslipidemia, goal LDL below 100 Other and unspecified hyperlipidemia Essential hypertension with goal blood pressure less than 140/90 documented in this encounter Care Teams Studio Sales Associate Relationship Specialty Start Date End Date Gold Zhang MD [address] [place] [address] PCP - General Family Medicine 08/02/20 documented as of this encounter
[2023-03-29] MEDS ORDERED: MECLIZINE HCL 25 MG TAB PO STA (17:29)
--- NOTE | 2023-03-29 18:01 | CT Scan Report ---
CT head/brain wo con CLINICAL HISTORY: Vertgo, vertical nystagmus Technique: Contiguous axial CT images of the head were acquired from the base of the skull to the jaclyn jono without intravenous contrast administration. Images were viewed in brain, subdural and bone windo ws. Automated dose lowering techniques and/or adjustment according to patient size were utilized for this exam. Comparison: None available at the time of this dictation. Findings: The ventricles, basal cisterns, and cerebral sulci are normal. There is no acute intracranial hemorrh age or evidence of acute territorial infarction. Neither mass effect, shift of the midline structures , nor abnormal extra-axial fluid collections are shown. Imaged portions of the paranasal sinuses and mastoid air cells are clear. The orbits appear normal. There are no acute fractures of the calvaria or scalp swelling. Impression: No acute intracranial hemorrhage, no evidence of acute territorial infarction or other acute intracra nial disease process. ACT 112: Negative or not required by law. Electronically signed by: Aren Mark M.D. 03/29/2023 6:00 PM
[2023-03-29 18:32] LABS: Basophils # (auto) 0.06 K/uL (0.00-0.20); Basophils % (auto) 0.4 %; Eosinophils # (auto) 0.01 K/uL (0.00-0.50); Eosinophils % (auto) 0.1 %; Hematocrit (blood only) 48.3 % (42.0-52.0); Hemoglobin 16.4 g/dl (14.0-18.0); Immature Granulocytes # (auto) 0.08 K/uL (0.01-0.20); Immature Granulocytes % (auto) 0.6 %; Lymphocytes # (auto) 0.83 K/uL (1.20-3.40); Lymphocytes % (auto) 6.2 %; Mean Corpuscular Hemoglobin 30.7 pg (25.0-34.0); Mean Corpuscular Volume 90.3 fL (80.0-100.0); Mean Platelet Volume 10.7 fL (9.4-12.4); Monocytes # (auto) 0.63 K/uL (0.11-0.59); Monocytes % (auto) 4.7 %; Neutrophils # (auto) 11.86 K/uL (1.40-6.50); Platelet Count 159 K/uL (130-400); RDW Coefficient of Variation 12.7 % (11.5-14.5); RDW Standard Deviation 41.6 fL (36.4-46.3); Red Blood Count 5.35 M/uL (4.70-6.10); White Blood Count 13.47 K/ul (4.8-10.8)
--- NOTE | 2023-03-29 18:37 | Emergency Department Note ---
Impression & Plan Vertigo ED Provider Note NAME: JASWANT BUSTOS AGE: 67 SEX: M : 1955 ARRIVES VIA: Ambulance INFORMANT: Patient, ED PROVIDER(S): Christelle Angela MD CHIEF COMPLAINT: Vertigo HPI: This is a 67-year-old male history of diabetes, hypertension, hypercholesterolemia presenting for vertigo. Patient said on Thursday he had symptoms of vertigo which she felt nauseated, burning sensation. This self resolved and then came back today around 1 PM. He notes that today is much more severe, less positional and more persistent. He is having nauseous without vomiting. He states he feels unsteady on his feet. He notes no previous history of stroke. No chest pain or shortness of breath. He does note that previously had right ear fullness over the past few days. ROS: See above HPI for pertinent positives & negatives. A total of 10 systems reviewed and were otherwise negative. PAST MEDICAL HISTORY: See Below PAST SURGICAL HISTORY: See Below FAMILY HISTORY: See Below SOCIAL HISTORY: See Below HOME MEDICATIONS: See Below ALLERGIES: See Below VITALS: See Below PHYSICAL EXAMINATION: General: resting comfortably in no acute distress Head: Normocephalic and atraumatic Eyes: Normal inspection, extraocular muscles intact Ear, nose, throat: Normal external exam Neck: Normal range of motion Respiratory: lungs clear to auscultation bilaterally Cardiovascular: Regular rate/rhythm, no murmur GI: soft, nontender, no guarding or rebound Extremities: nontender, moves all extremities Neuro: The patient awake and alert, appropriately conversive, no focal deficits, symmetric faces, cranial nerves 2 through 12 grossly intact, possible vertical nystagmus Skin: Warm, dry, and intact] MEDICAL DECISION MAKING: This is a 67-year-old male history of diabetes, hypertension, hypercholesterolemia presenting for vertigo. Concern for central versus peripheral process. Patient head CT shows no acute abnormalities, bladder does reveal a leukocytosis of 13.47. Otherwise no significant electrolyte disturbances. Troponin negative at this time. Patient meclizine, has moderate improvement but not complete resolution. Patient to walk, still somewhat unsteady on his feet. Still vertiginous. Due to persistent symptoms, possible vertical/rotational nystagmus, will admit for further stroke rule out. This is after discussion with family and patient they prefer inpatient mission versus discharge home with meclizine prescription. Triage Nursing notes reviewed. Prior medical records reviewed Vital Signs: reviewed and remarkable for no significant abnormalities Differential diagnosis: Central, peripheral vertigo, ER treatment provided: See below Diagnostics interpreted by me: ECG: None Cardiac Monitoring: An order was placed for continuous cardiac monitoring. The monitor shows a rate of 100 with sinus rhythm Laboratory studies: As stated above and show below. Imaging studies: See below. Consultation(s): None Past Med/Surg History Medical History Basal cell carcinoma Fall Right-sided back pain Surgical History History of tonsillectomy Family History Mother Breast cancer Father Heart disease Social History Smoking Status: Never smoker Hx Alcohol Use: Yes Alcohol type: hard liquor Alcohol Intake Frequency: 2-3 x/Week Preferred Language: Citizen Of [place] Communication Ability: Effective Current Living Situation: Spouse current occupational status: employed current occupation: [employer] How many Children do You have: 2 Feels Safe at Home: Yes Allergies Allergies Allergy/AdvReac Type Severity Reaction Status Date / Time lisinopril AdvReac Mild Cough Verified 12/03/22 14:55 oxycodone AdvReac Mild Nausea/Vomiting Verified 12/03/22 14:55 - long acting product only Home Meds Home Medications Medication Instructions Recorded Confirmed olmesartan 20 mg tablet (Benicar) 20 mg PO DAILY 03/02/20 03/29/23 aspirin 81 mg tablet,delayed 81 mg PO DAILY 07/09/20 03/29/23 release blood sugar diagnostic (Contour #10 ea 08/20/20 12/03/22 Test Strips) Previous Rx's Medication Instructions Recorded atorvastatin 40 mg tablet 40 mg PO DAILY #30 tabs 03/02/20 hydrochlorothiazide 25 mg tablet 25 mg PO DAILY #30 tabs 03/02/20 metoprolol succinate 50 mg 50 mg PO DAILY #30 tabs 03/02/20 tablet,extended release 24 hr (Toprol XL) metformin 500 mg tablet,extended 1,000 mg (2 x 500 mg) PO BID #360 02/28/22 release 24 hr tabs insulin lispro 100 unit/mL 200 unit (2 mL) subcut DAILY 90 10/20/22 subcutaneous solution (Humalog days #180 mL U-100 Insulin) canagliflozin 300 mg tablet 300 mg PO DAILY #30 tabs 11/18/22 (Invokana) semaglutide 2 mg/dose (8 mg/3 mL) 2 mg (0.75 mL) subcut Q7D #3 mL 11/21/22 subcutaneous pen injector (Ozempic) Results & Data (ED) Vital Signs Vital Signs - 24 hr 03/29/23 16:43 03/29/23 16:49 03/29/23 19:12 Temperature 36.3 C L Temperature Source Oral Pulse Rate 80 88 Pulse Rate [Apical] 101 H Respiratory Rate 14 20 Respiratory Effort / Characteristics Non-Labored Spontaneous Respiratory Depth Normal Respiratory Pattern Regular Blood Pressure 133/75 Blood Pressure [Left Arm] 139/80 Blood Pressure Mean 94 Blood Pressure Mean [Left Arm] 99 Blood Pressure Position [Left Arm] Semi-fowlers Pulse Oximetry 98 93 Oxygen Delivery Method Room Air Room Air Sepsis New/Unexplained Change in Mental Status No Sepsis Action Taken by Nursing No Action Required Laboratory Data 03/29/23 18:11 03/29/23 18:11 Lab Results 03/29/23 Range/Units 18:11 WBC 13.47 H (4.8-10.8) K/ul RBC 5.35 (4.70-6.10) M/uL Hgb 16.4 (14.0-18.0) g/dl Hct 48.3 (42.0-52.0) % MCV 90.3 (80.0-100.0) fL MCH 30.7 (25.0-34.0) pg MCHC 34.0 (32.0-36.0) g/dL RDW Std Deviation 41.6 (36.4-46.3) fL RDW Coeff of Lamonte 12.7 (11.5-14.5) % Plt Count 159 (130-400) K/uL MPV 10.7 (9.4-12.4) fL Immature Gran % (Auto) 0.6 % Neut % (Auto) 88.0 % Lymph % (Auto) 6.2 % [place]ne % (Auto) 4.7 % Eos % (Auto) 0.1 % Baso % (Auto) 0.4 % Neut # (Auto) 11.86 H (1.40-6.50) K/uL Lymph # (Auto) 0.83 L (1.20-3.40) K/uL Duc[place]ne # (Auto) 0.63 H (0.11-0.59) K/uL Eos # (Auto) 0.01 (0.00-0.50) K/uL Baso # (Auto) 0.06 (0.00-0.20) K/uL Immature Gran # (Auto) 0.08 (0.01-0.20) K/uL Sodium 139 (136-145) mmol/L Potassium 4.0 (3.5-5.1) mmol/L Chloride 103 (98-107) mmol/L Carbon Dioxide 26 (21-32) mmol/L Anion Gap 10 (3-11) BUN 25 H (6-23) mg/dl Creatinine 1.05 (0.6-1.4) mg/dl Est Cr Clr Drug Dosing 75.3 ml/min Est GFR ( Amer) 85.3 ml/min Est GFR (Non-Af Amer) 73.6 ml/min BUN/Creatinine Ratio 23.8 H (10-20) Glucose 175 H (70-99(Fasting)) mg/dl Calcium 10.1 (8.6-10.3) mg/dl Total Bilirubin 0.6 (0.2-1.0) mg/dl AST 17 (13-39) U/L ALT 32 (7-52) U/L Alkaline Phosphatase 57 (34-104) U/L Troponin I High Sens 4.6 (0-20) pg/ml Total Protein 7.2 (6.0-8.3) gm/dl Albumin 4.4 (3.4-5.0) gm/dl Globulin 2.8 (2.5-4.0) gm/dl Albumin/Globulin Ratio 1.6 (0.9-2) Administered Medications Discontinued Medications Meclizine HCl (Meclizine Hcl 25 Mg Tab) 25 mg PO NOW STA Stop: 03/29/23 17:30 Last Admin: 03/29/23 17:50 Dose: 25 mg Documented By: [facility] Imaging Data Radiologist's Impression: Head CT 03/29/23 17:29 CT head/brain wo con CLINICAL HISTORY: Vertgo, vertical nystagmus Technique: Contiguous axial CT images of the head were acquired from the base of the skull to the vertex without intravenous contrast administration. Images were viewed in brain, subdural and bone windows. Automated dose lowering techniques and/or adjustment according to patient size were utilized for this exam. Comparison: None available at the time of this dictation. Findings: The ventricles, basal cisterns, and cerebral sulci are normal. There is no acute intracranial hemorrhage or evidence of acute territorial infarction. Neither mass effect, shift of the midline structures, nor abnormal extra-axial fluid collections are shown. Imaged portions of the paranasal sinuses and mastoid air cells are clear. The orbits appear normal. There are no acute fractures of the calvaria or scalp swelling. Impression: No acute intracranial hemorrhage, no evidence of acute territorial infarction or other acute intracranial disease process. ACT 112: Negative or not required by law. Electronically signed by: Aren Mark M.D. 03/29/2023 6:00 PM Discharge Plan Visit Data Chief Complaint: Vertigo Stated Complaint: DIZZINESS, LIGHTHEADED ED Provider: Christelle Angela Discharge Problem: Vertigo Forms Stand Alone Forms: My [facility] Prescriptions Prescriptions: No Action insulin lispro [Humalog U-100 Insulin] 100 unit/mL solution 200 unit subcut DAILY 90 Days Qty: 180 3RF Rx Instructions: via insulin pump Invokana 300 mg tablet 300 mg PO DAILY Qty: 30 5RF (DME) Contour Test Strips Strip See Rx Instructions .ROUTE .MEDSUPPLY Qty: 10 Rx Instructions: test blood sugar 4 x daily Ozempic 2 mg/dose (8 mg/3 mL) pen injector 2 mg subcut Q7D Qty: 3 12RF olmesartan [Benicar] 20 mg tablet 20 mg PO DAILY atorvastatin 40 mg tablet 40 mg PO DAILY Qty: 30 2RF hydrochlorothiazide 25 mg tablet 25 mg PO DAILY Qty: 30 2RF metoprolol succinate [Toprol XL] 50 mg tablet extended release 24 hr 50 mg PO DAILY Qty: 30 2RF aspirin 81 mg tablet,delayed release (DR/EC) 81 mg PO DAILY metformin 500 mg tablet extended release 24 hr 1,000 mg PO BID Qty: 360 5RF Referrals Referrals: Gold Zhang MD [Primary Care Provider] -
[2023-03-29 18:40] LABS: Albumin Globulin Ratio 1.6 (0.9-2); Albumin Level 4.4 gm/dl (3.4-5.0); BUN Creatinine Ratio 23.8 (10-20); Bilirubin,Total 0.6 mg/dl (0.2-1.0); Calcium 10.1 mg/dl (8.6-10.3); Creatinine Clr Calc Pharmacy 75.3 ml/min; Est GFR (African American) 85.3 ml/min; Est GFR (Non-African American) 73.6 ml/min; Globulin 2.8 gm/dl (2.5-4.0); Total Protein 7.2 gm/dl (6.0-8.3)
[2023-03-29 18:47] LABS: Troponin I High Sensitivity 4.6 pg/ml (0-20)
--- NOTE | 2023-03-29 20:29 | History & Physical Report ---
Date of Service March 29, 2023 Assessment & Plan (1) Vertigo: Plan: 67-year-old male with past med significant for diabetes, diabetic polyneuropathy, diabetic retinopathy, hyperlipidemia, hypertension, arthritis, presents with vertigo and some ambulatory dysfunction. Vertigo Associate with nausea Some imbalance Currently seems better Able to move his neck without symptoms currently CT head is okay Will do MRI head IV fluids monitor on telemetry Neuroconsult in a.m. PT OT when stable Diabetes Hold home meds Sliding scale Will monitor Right sided chest pain on and off follow serial ce and echo. Hyperlipidemia On statin Hypertension On hydrochlorothiazide, metoprolol succinate, olmesartan Will monitor DVT prophylaxis SCDs Disposition med/telemetry Full code History of Present Illness Chief Complaint: Vertigo Primary Care Provider: Gold Zhang MD 67-year-old male with past med history significant for diabetes, diabetic polyneuropathy, diabetic retinopathy, hyperlipidemia, hypertension, arthritis, presents with vertigo and some ambulatory dysfunction. Patient states she had vertigo last Thursday but that got resolved by Thursday. But again today got severe vertigo and nauseous and was not even able to get up from the bed. Currently is much improved. But in the ER was having some difficulty with balance. He is having runny nose for 2 weeks. No cough. Has headache now. No shortness of breath. No fevers. Appetite is okay. No difficulty swallowing. For last 2 weeks he is getting sharp right-sided chest pain for few seconds while resting on and off. Today has some abdominal discomfort. Normal bowel and bladder movements. Currently resting comfortable and hemodynamically stable. Past medical history. As mentioned above Past surgical history. Colonoscopy. Tonsillectomy adenoidectomy. Treatment of extensive retinopathy. Social history. . No smoking. Alcohol occasional. No drug use. Family history. Maternal grandmother had diabetes. Father had VA. Mother had CAD. Thyroid disorder. Allergies Allergy/AdvReac Type Severity Reaction Status Date / Time lisinopril AdvReac Mild Cough Verified 12/03/22 14:55 oxycodone AdvReac Mild Nausea/Vomiting Verified 12/03/22 14:55 - long acting product only Home Medications Medication Instructions Recorded Confirmed Type atorvastatin 40 mg tablet 40 mg PO DAILY #30 tabs 03/02/20 03/29/23 Rx hydrochlorothiazide 25 mg tablet 25 mg PO DAILY #30 tabs 03/02/20 03/29/23 Rx metoprolol succinate 50 mg 50 mg PO DAILY #30 tabs 03/02/20 03/29/23 Rx tablet,extended release 24 hr (Toprol XL) olmesartan 20 mg tablet (Benicar) 20 mg PO DAILY 03/02/20 03/29/23 History aspirin 81 mg tablet,delayed 81 mg PO DAILY 07/09/20 03/29/23 History release blood sugar diagnostic (Contour #10 ea 08/20/20 12/03/22 History Test Strips) metformin 500 mg tablet,extended 1,000 mg (2 x 500 mg) PO BID #360 02/28/22 1 05/29/22 Rx release 24 hr tabs insulin lispro 100 unit/mL 200 unit (2 mL) subcut DAILY 90 10/20/22 03/29/23 Rx subcutaneous solution (Humalog days #180 mL U-100 Insulin) canagliflozin 300 mg tablet 300 mg PO DAILY #30 tabs 11/18/22 03/29/23 Rx (Invokana) semaglutide 2 mg/dose (8 mg/3 mL) 2 mg (0.75 mL) subcut Q7D #3 mL 11/21/22 03/29/23 Rx subcutaneous pen injector (Ozempic) Past Med/Surg History Medical History Basal cell carcinoma Fall Right-sided back pain Surgical History History of tonsillectomy Family History Mother Breast cancer Father Heart disease Social History Smoking Status: Never smoker Hx Alcohol Use: Yes Alcohol type: hard liquor Alcohol Intake Frequency: 2-3 x/Week Hx Substance Use: No Preferred Language: Dutch Communication Ability: Effective Dealer Sales Rep Required: No Beliefs That Will Affect Care: None Current Living Situation: Spouse 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 ENT- oropharynx clear Neck- supple, no JVD. Lungs- clear to auscultation no wheezing or crackles. Heart- regular rhythm; no murmur, no gallop. Abdomen- normal bowel sounds, soft, nontender, no distension. Extremities- no pretibial edema, no erythema seen. Neuro- alert, oriented x 3; PERRL, EOMI; no facial palsy; no dysarthria; motor 5/5 bilaterally; coordination of movements normal. No pronator drift. Sensations intact Skin- warm & dry Results & Data Results & Data Vital Signs (Past 12 Hours) Vital Signs Temp Pulse Pulse Resp BP BP Pulse Ox 03/29/23 19:12 101 H 20 139/80 93 03/29/23 16:49 88 03/29/23 16:43 36.3 C L 80 14 133/75 98 O2 Del Method 03/29/23 19:12 Room Air 03/29/23 16:49 03/29/23 16:43 Room Air Diagnostic Findings Laboratory Results WBC 13.47 K/ul (4.8-10.8) H 03/29/23 18:11 RBC 5.35 M/uL (4.70-6.10) 03/29/23 18:11 Hgb 16.4 g/dl (14.0-18.0) 03/29/23 18:11 Hct 48.3 % (42.0-52.0) 03/29/23 18:11 MCV 90.3 fL (80.0-100.0) 03/29/23 18:11 MCH 30.7 pg (25.0-34.0) 03/29/23 18:11 MCHC 34.0 g/dL (32.0-36.0) 03/29/23 18:11 RDW Std Deviation 41.6 fL (36.4-46.3) 03/29/23 18:11 RDW Coeff of Lamonte 12.7 % (11.5-14.5) 03/29/23 18:11 Plt Count 159 K/uL (130-400) 03/29/23 18:11 MPV 10.7 fL (9.4-12.4) 03/29/23 18:11 Immature Gran % (Auto) 0.6 % 03/29/23 18:11 Neut % (Auto) 88.0 % 03/29/23 18:11 Lymph % (Auto) 6.2 % 03/29/23 18:11 [place]arns % (Auto) 4.7 % 03/29/23 18:11 Eos % (Auto) 0.1 % 03/29/23 18:11 Baso % (Auto) 0.4 % 03/29/23 18:11 Neut # (Auto) 11.86 K/uL (1.40-6.50) H 03/29/23 18:11 Lymph # (Auto) 0.83 K/uL (1.20-3.40) L 03/29/23 18:11 Stearns # (Auto) 0.63 K/uL (0.11-0.59) H 03/29/23 18:11 Eos # (Auto) 0.01 K/uL (0.00-0.50) 03/29/23 18:11 Baso # (Auto) 0.06 K/uL (0.00-0.20) 03/29/23 18:11 Immature Gran # (Auto) 0.08 K/uL (0.01-0.20) 03/29/23 18:11 Sodium 139 mmol/L (136-145) 03/29/23 18:11 Potassium 4.0 mmol/L (3.5-5.1) 03/29/23 18:11 Chloride 103 mmol/L (98-107) 03/29/23 18:11 Carbon Dioxide 26 mmol/L (21-32) 03/29/23 18:11 Anion Gap 10 (3-11) 03/29/23 18:11 BUN 25 mg/dl (6-23) H 03/29/23 18:11 Creatinine 1.05 mg/dl (0.6-1.4) 03/29/23 18:11 Est Cr Clr Drug Dosing 75.3 ml/min 03/29/23 18:11 Est GFR ( Amer) 85.3 ml/min 03/29/23 18:11 Est GFR (Non-Af Amer) 73.6 ml/min 03/29/23 18:11 BUN/Creatinine Ratio 23.8 (10-20) H 03/29/23 18:11 Glucose 175 mg/dl (70-99(Fasting)) H 03/29/23 18:11 Calcium 10.1 mg/dl (8.6-10.3) 03/29/23 18:11 Total Bilirubin 0.6 mg/dl (0.2-1.0) 03/29/23 18:11 AST 17 U/L (13-39) 03/29/23 18:11 ALT 32 U/L (7-52) 03/29/23 18:11 Alkaline Phosphatase 57 U/L (34-104) 03/29/23 18:11 Troponin I High Sens 4.6 pg/ml (0-20) 03/29/23 18:11 Total Protein 7.2 gm/dl (6.0-8.3) 03/29/23 18:11 Albumin 4.4 gm/dl (3.4-5.0) 03/29/23 18:11 Globulin 2.8 gm/dl (2.5-4.0) 03/29/23 18:11 Albumin/Globulin Ratio 1.6 (0.9-2) 03/29/23 18:[address] 03/29/23 17:29 CT head/brain wo con CLINICAL HISTORY: Vertgo, vertical nystagmus Technique: Contiguous axial CT images of the head were acquired from the base of the skull to the vertex without intravenous contrast administration. Images were viewed in brain, subdural and bone windows. Automated dose lowering techniques and/or adjustment according to patient size were utilized for this exam. Comparison: None available at the time of this dictation. Findings: The ventricles, basal cisterns, and cerebral sulci are normal. There is no acute intracranial hemorrhage or evidence of acute territorial infarction. Neither mass effect, shift of the midline structures, nor abnormal extra-axial fluid collections are shown. Imaged portions of the paranasal sinuses and mastoid air cells are clear. The orbits appear normal. There are no acute fractures of the calvaria or scalp swelling. Impression: No acute intracranial hemorrhage, no evidence of acute territorial infarction or other acute intracranial disease process. ACT 112: Negative or not required by law. Electronically signed by: Aren Mark M.D. 03/29/2023 6:00 PM ECG Additional Comments: ECG. Sinus rhythm with first-degree AV block at a rate of 89. Code Status & VTE Plan VTE Prophylaxis Plan VTE Prophylaxis will be ordered: Yes
[2023-03-29] MEDS ORDERED: GLUCOSE 40% GEL 15 GM TUBE PO PRN (22:07)
[2023-03-29] MEDS ORDERED: NITROGLYCERIN SL 0.4 MG/TAB TAB SL PRN (22:07)
[2023-03-29] MEDS ORDERED: ONDANSETRON INJ 2 MG/ML 2 ML VIAL IV PRN (22:07)
[2023-03-29] MEDS ORDERED: GLUCAGON FOR INJ 1 MG VIAL SQ PRN (22:07)
[2023-03-29] MEDS ORDERED: DEXTROSE 50% 50 ML SYRINGE IV PRN (22:07)
[2023-03-29] MEDS ORDERED: CARBOHYDRATES FOR HYPOGLYCEMIA PO PRN (22:07)
[2023-03-29] MEDS ORDERED: GLUCOSE 10 TAB/TUBE PO PRN (22:07)
[2023-03-29] MEDS ORDERED: ACETAMINOPHEN 325 MG TAB PO PRN (22:07)
[2023-03-29] MEDS ORDERED: MECLIZINE HCL 25 MG TAB PO PRN (22:07)
[2023-03-29] MEDS: INSULIN ASPART PER UNIT CHARGE SC SCH (22:33)
[2023-03-29] MEDS: SODIUM CHLORIDE 0.9% 1,000 ML IV SCH (22:36)
[2023-03-29] MEDS ORDERED: GADOBUTROL 10ML VIAL IV ONE (23:29)
--- NOTE | 2023-03-30 00:35 | Magnetic Resonance Report ---
Exam(s): MRI HEAD W/WO Contrast IV Amt: 9cc gadavist EXAM: MR Head Without and With Intravenous Contrast CLINICAL HISTORY: Reason for exam: vertigo, imbalance. TECHNIQUE: Magnetic resonance images of the head/brain without and with intravenous contrast in multiple planes. CONTRAST: Patient received 9cc gadavist of IV contrast COMPARISON: Comparison made to prior head CT from March 29, 2023. FINDINGS: Brain: Minimal nonspecific white matter changes. No mass. No hemorrhage. No acute infarct. The flow voids at the base of the brain are intact. Normal enhancement. The dural venous sinuses are patent. Ventricles: Moderate ventriculomegaly. Bones/joints: Unremarkable. No acute fracture. Sinuses: Unremarkable as visualized. No acute sinusitis. Mastoid air cells: Unremarkable as visualized. No mastoid effusion. Orbits: Unremarkable as visualized. IMPRESSION: No evidence of acute intracranial pathology. Minimal nonspecific white matter changes. Electronically signed by: Kira Lozoya MD 03/30/23 00:34 AM
[2023-03-30 04:25] LABS: Basophils # (auto) 0.03 K/uL (0.00-0.20); Basophils % (auto) 0.4 %; Eosinophils # (auto) 0.05 K/uL (0.00-0.50); Eosinophils % (auto) 0.7 %; Hematocrit (blood only) 46.2 % (42.0-52.0); Hemoglobin 15.9 g/dl (14.0-18.0); Immature Granulocytes # (auto) 0.03 K/uL (0.01-0.20); Immature Granulocytes % (auto) 0.4 %; Lymphocytes # (auto) 1.48 K/uL (1.20-3.40); Lymphocytes % (auto) 19.7 %; Mean Corpuscular Hemoglobin 30.9 pg (25.0-34.0); Mean Corpuscular Hgb Conc 34.4 g/dL (32.0-36.0); Mean Corpuscular Volume 89.7 fL (80.0-100.0); Mean Platelet Volume 10.5 fL (9.4-12.4); Monocytes # (auto) 0.87 K/uL (0.11-0.59); Monocytes % (auto) 11.6 %; Neutrophils # (auto) 5.07 K/uL (1.40-6.50); Neutrophils % (auto) 67.2 %; Platelet Count 159 K/uL (130-400); RDW Coefficient of Variation 12.8 % (11.5-14.5); RDW Standard Deviation 41.9 fL (36.4-46.3); Red Blood Count 5.15 M/uL (4.70-6.10); White Blood Count 7.53 K/ul (4.8-10.8)
[2023-03-30 04:41] LABS: BUN Creatinine Ratio 28.4 (10-20); Calcium 9.7 mg/dl (8.6-10.3); Creatinine Clr Calc Pharmacy 89.8 ml/min; Est GFR (African American) 103.7 ml/min; Est GFR (Non-African American) 89.5 ml/min; Magnesium 2.1 mg/dl (1.7-2.4); Potassium 3.9 mmol/L (3.5-5.1)
[2023-03-30 07:20] LABS: Estimated Average Glucose 151 mg/dl; Hemoglobin A1C 6.9 % (4.5-5.6)
[2023-03-30] MEDS: SODIUM CHLORIDE 0.9% 1,000 ML IV SCH ×2 (08:13→17:48)
[2023-03-30] MEDS: ASPIRIN 81 MG ECTAB PO SCH (08:17)
[2023-03-30] MEDS: hydroCHLOROthiazide 25 MG TAB PO SCH (08:17)
[2023-03-30] MEDS: INSULIN ASPART PER UNIT CHARGE SC SCH ×4 (08:24→21:21)
[2023-03-30] MEDS: OLMESARTAN MEDOXOMIL 20 MG TAB PO SCH (08:27)
[2023-03-30] MEDS: METOPROLOL SUCC 50MG EXT REL TAB PO SCH (08:27)
[2023-03-30] MEDS: ATORVASTATIN 40 MG TAB PO SCH (08:31)
--- NOTE | 2023-03-30 16:11 | Neurology Consultation ---
Date of Consultation March 30, 2023 Assessment & Plan (1) Vertigo: Suspect BPPV Recommend monitor orthostatic VS Monitor telemetry closely Recommend PT/OT eval and treat Continue to monitor s/s of vertigo Monitor Neurological assessments Maintain adequate hydration Consider PRN antiemetic Telehealth Consultation Telehealth Information Telehealth Information: I performed this visit using a real-time telehealth connection between my location and the patients location ([facility]). After connecting through interactive tele-video, patient was identified by name and date of and/or wristband check.Patient (or authorized healthcare access services representative) was informed that this was a telemedicine visit and it was being conducted confidentially over secure lines. My office door was closed and no one else was present in the room with me.Patient (or authorized healthcare access services representative) provided consent to proceed with the visit, expressed an understanding of privacy and security of the telemedicine visit, and gave permission to have a hospital access services representative in the room in order to assist with the visit and to conduct portions of the visit, as needed. I informed the patient (or authorized healthcare access services representative) that I reviewed their record and presented the opportunity for them to ask any questions regarding the visit today. The patient agreed to participate. History of Present Illness Reason for Consultation: Near syncope/Vertigo Requesting Physician: Dr. Allan Attending Physician: Troy Richardson MD History of Present Illness 67yo male presented to the ER after experiencing an episode describes as intense room spinning such that he was unable to sit up or ambulate coupled with worsened tinnitus. He notes he has had a similar but less intense episode days prior. He reports chronic tinnitus. Notably he reports right sided chest pain occurring frequently over the past couple of days. Denies SOB or palpitations. He notes feeling of room spinning with pressure of fullness in his ear. At this time he states symptoms have resolved. He has ambulated and states that he feels back to baseline in terms of ambulatory function. He denies full syncope/loss of consciousness. He has undergone an MRI brain with and without contrast fortunately revealing no evidence of intracranial pathology to explain symptoms. Allergies Allergy/AdvReac Type Severity Reaction Status Date / Time lisinopril AdvReac Mild Cough Verified 12/03/22 14:55 oxycodone AdvReac Mild Nausea/Vomiting Verified 12/03/22 14:55 - long acting product only Home Medications Medication Instructions Recorded Confirmed Type atorvastatin 40 mg tablet 40 mg PO DAILY #30 tabs 03/02/20 03/29/23 Rx hydrochlorothiazide 25 mg tablet 25 mg PO DAILY #30 tabs 03/02/20 03/29/23 Rx metoprolol succinate 50 mg 50 mg PO DAILY #30 tabs 03/02/20 03/29/23 Rx tablet,extended release 24 hr (Toprol XL) olmesartan 20 mg tablet (Benicar) 20 mg PO DAILY 03/02/20 03/29/23 History aspirin 81 mg tablet,delayed 81 mg PO DAILY 07/09/20 03/29/23 History release blood sugar diagnostic (Contour #10 ea 08/20/20 03/30/23 History Test Strips) metformin 500 mg tablet,extended 1,000 mg (2 x 500 mg) PO BID #360 02/28/22 03/29/23 Rx release 24 hr tabs insulin lispro 100 unit/mL 200 unit (2 mL) subcut DAILY 90 10/20/22 03/29/23 Rx subcutaneous solution (Humalog days #180 mL U-100 Insulin) canagliflozin 300 mg tablet 300 mg PO DAILY #30 tabs 11/18/22 03/29/23 Rx (Invokana) semaglutide 2 mg/dose (8 mg/3 mL) 2 mg (0.75 mL) subcut Q7D #3 mL 11/21/22 03/29/23 Rx subcutaneous pen injector (Ozempic) Patient History Medical History Basal cell carcinoma Fall Right-sided back pain Surgical History History of tonsillectomy Family History Mother Breast cancer Father Heart disease Social History Smoking Status: Never smoker Hx Alcohol Use: Yes Alcohol type: hard liquor Alcohol Intake Frequency: 2-3 x/Week Hx Substance Use: No Preferred Language: Yi Communication Ability: Effective Insurance Verify Rep Required: No Beliefs That Will Affect Care: None Current Living Situation: Spouse current occupational status: employed current occupation: [employer] How many Children do You have: 2 Feels Safe at Home: Yes Safety Concerns: Feels Safe At This Time Assistive Devices: None Review of Systems At this time N reported changes in hearing noting chronic tinnitus No reported cephalgia or cervicalgia Denies chest pain/palpitations or shortness of breath No reported changes in vision dizziness syncope seizure like activity or paresthesia Denies recent fevers chills nausea vomiting changes in bowels or bladder Denies recent medication changes, no reported weight loss or weight gain Denies recent illness or sick contacts, no reported recent travel Physical Exam Neurological Examination: Mental Status: Awake and alert. Oriented to person, place, and time. Fluency naming repetition and comprehension appear grossly intact. Affect remains appropriate. CN testing: I: Denies changes in ability to smell II:Reports no changes in visual acuity III/IV/: No evidence of gaze preference, hippus, nystagmus or roving eye movements V: Facial sensation reportedly grossly intact to light touch bilaterally VII: Facial movements appear without evidence of asymmetry VIII: Hearing appears grossly intact to loud voice bilaterally IX/X: Palate appears to elevate symmetrically XI: Shoulder shrug appears symmetric/ grossly intact bilaterally XII: Tongue protrudes midline without evidence of biting Motor exam: Strength appears grossly intact in all extremities Tone & bulk appear appropriate Sensory: Sensation is reportedly grossly intact throughout Coordination: Finger to nose and heel to sal were intact. No apparent evidence of dysmetria or dysdiadochokinesia Reflexes: 2+ throughout the upper and lower extremities while plantar are downgoing bilaterally. Gait: Deferred Results & Data Vital Signs (Past 12 Hours) Vital Signs Pulse Pulse Resp BP BP Pulse Ox Pulse Ox 03/30/23 15:32 80 03/30/23 14:40 93 H 18 125/83 93 03/30/23 14:35 94 H 20 147/88 H 96 03/30/23 14:35 78 18 138/74 98 03/30/23 08:00 81 03/30/23 07:04 97 03/30/23 07:02 81 20 135/85 97 O2 Del Method O2 Del Method 03/30/23 15:32 03/30/23 14:40 Room Air 03/30/23 14:35 Room Air 03/30/23 14:35 Room Air 03/30/23 08:00 03/30/23 07:04 Room Air 03/30/23 07:02 Room Air Laboratory Results Abnormal lab results 03/29/23 03/29/23 03/30/23 Range/Units 18:11 22:25 03:56 WBC 13.47 H (4.8-10.8) K/ul Neut # (Auto) 11.86 H (1.40-6.50) K/uL Lymph # (Auto) 0.83 L (1.20-3.40) K/uL [place] # (Auto) 0.63 H 0.87 H (0.11-0.59) K/uL BUN 25 H (6-23) mg/dl BUN/Creatinine Ratio 23.8 H (10-20) Glucose 175 H (70-99(Fasting)) mg/dl POC Glucose 199 H (70-99) mg/dl Hemoglobin A1c (4.5-5.6) % 03/30/23 03/30/23 03/30/23 Range/Units 03:57 07:51 11:54 WBC (4.8-10.8) K/ul Neut # (Auto) (1.40-6.50) K/uL Lymph # (Auto) (1.20-3.40) K/uL [place] # (Auto) (0.11-0.59) K/uL BUN 25 H (6-23) mg/dl BUN/Creatinine Ratio 28.4 H (10-20) Glucose 145 H (70-99(Fasting)) mg/dl POC Glucose 135 H 182 H (70-99) mg/dl Hemoglobin A1c 6.9 H (4.5-5.6) % Diagnostic Findings Head CT 03/29/23 17:29 CT head/brain wo con CLINICAL HISTORY: Vertgo, vertical nystagmus Technique: Contiguous axial CT images of the head were acquired from the base of the skull to the vertex without intravenous contrast administration. Images were viewed in brain, subdural and bone windows. Automated dose lowering techniques and/or adjustment according to patient size were utilized for this exam. Comparison: None available at the time of this dictation. Findings: The ventricles, basal cisterns, and cerebral sulci are normal. There is no acute intracranial hemorrhage or evidence of acute territorial infarction. Neither mass effect, shift of the midline structures, nor abnormal extra-axial fluid collections are shown. Imaged portions of the paranasal sinuses and mastoid air cells are clear. The orbits appear normal. There are no acute fractures of the calvaria or scalp s welling. Impression: No acute intracranial hemorrhage, no evidence of acute territorial infarction or other acute intracranial disease process. ACT 112: Negative or not required by law. Electronically signed by: Aren Mark M.D. 03/29/2023 6:00 PM Brain MRI 03/29/23 22:07 Exam(s): MRI HEAD W/WO Contrast IV Amt: 9cc gadavist EXAM: MR Head Without and With Intravenous Contrast CLINICAL HISTORY: Reason for exam: vertigo, imbalance. TECHNIQUE: Magnetic resonance images of the head/brain without and with intravenous contrast in multiple planes. CONTRAST: Patient received 9cc gadavist of IV contrast COMPARISON: Comparison made to prior head CT from March 29, 2023. FINDINGS: Brain: Minimal nonspecific white matter changes. No mass. No hemorrhage. No acute infarct. The flow voids at the base of the brain are intact. Normal enhancement. The dural venous sinuses are patent. Ventricles: Moderate ventriculomegaly. Bones/joints: Unremarkable. No acute fracture. Sinuses: Unremarkable as visualized. No acute sinusitis. Mastoid air cells: Unremarkable as visualized. No mastoid effusion. Orbits: Unremarkable as visualized. IMPRESSION: No evidence of acute intracranial pathology. Minimal nonspecific white matter changes. Electronically signed by: Kira Lozoya MD 03/30/23 00:34 AM Medications Administered Home Medications Medication Instructions Recorded Confirmed Last Taken atorvastatin 40 mg tablet 40 mg PO DAILY #30 tabs 03/02/20 03/29/23 Unknown hydrochlorothiazide 25 mg tablet 25 mg PO DAILY #30 tabs 03/02/20 03/29/23 Unknown metoprolol succinate 50 mg 50 mg PO DAILY #30 tabs 03/02/20 03/29/23 Unknown tablet,extended release 24 hr (Toprol XL) olmesartan 20 mg tablet (Benicar) 20 mg PO DAILY 03/02/20 03/29/23 Unknown aspirin 81 mg tablet,delayed 81 mg PO DAILY 07/09/20 03/29/23 Unknown release blood sugar diagnostic (Contour #10 ea 08/20/20 03/30/23 Unknown Test Strips) metformin 500 mg tablet,extended 1,000 mg (2 x 500 mg) PO BID #360 02/28/22 03/29/23 Unknown release 24 hr tabs insulin lispro 100 unit/mL 200 unit (2 mL) subcut DAILY 90 10/20/22 03/29/23 Unknown subcutaneous solution (Humalog days #180 mL U-100 Insulin) canagliflozin 300 mg tablet 300 mg PO DAILY #30 tabs 11/18/22 03/29/23 Unknown (Invokana) semaglutide 2 mg/dose (8 mg/3 mL) 2 mg (0.75 mL) subcut Q7D #3 mL 11/21/22 03/29/23 Unknown subcutaneous pen injector (Ozempic) Active Medications Generic Name Dose Route Start Last Admin Trade Name Freq PRN Reason Stop Dose Admin Acetaminophen 650 mg 03/29/23 22:07 03/29/23 22:42 Acetaminophen 325 Mg Tab PO 04/28/23 22:06 650 mg Q4H PRN Administration Pain or Fever Aspirin 81 mg 03/30/23 09:00 03/30/23 08:17 Aspirin 81 Mg Ectab PO 04/29/23 08:59 Not Given DAILY [facility] Atorvastatin Calcium 40 mg 03/30/23 09:00 03/30/23 08:31 Atorvastatin 40 Mg Tab PO 04/29/23 08:59 Not Given DAILY [facility] Hydrochlorothiazide 25 mg 03/30/23 09:00 03/30/23 08:17 Hydrochlorothiazide 25 Mg Tab PO 04/29/23 08:59 Not Given DAILY [facility] Sodium Chloride 1,000 mls @ 100 mls/hr 03/29/23 22:07 03/30/23 08:13 Nss IV 04/28/23 22:06 100 mls/hr .Q10H ÁNGEL Administration Insulin Aspart 0 units 03/29/23 22:07 03/30/23 13:18 Insulin Aspart Per Unit Charge SC 04/28/23 22:06 2 units ACHS ÁNGEL Administration Metoprolol Succinate 50 mg 03/30/23 09:00 03/30/23 08:27 Metoprolol Succ 50mg Ext Rel Tab PO 04/29/23 08:59 Not Given DAILY [facility] Olmesartan 20 mg 03/30/23 09:00 03/30/23 08:27 Olmesartan Medoxomil 20 Mg Tab PO 04/29/23 08:59 Not Given DAILY [facility] Ondansetron HCl 4 mg 03/29/23 22:07 03/30/23 07:52 Ondansetron Inj 2 Mg/Ml 2 Ml Vial IV 04/28/23 22:06 4 mg Q6H PRN Administration Nausea
--- NOTE | 2023-03-30 16:13 | Hospitalist Progress Note ---
Date of Service March 30, 2023 Assessment & Plan (1) Vertigo: Plan: 67 yo M with past med significant for diabetes, diabetic polyneuropathy, diabetic retinopathy, hyperlipidemia, hypertension, arthritis, presents with vertigo and some ambulatory dysfunction. Vertigo Associated with nausea Some imbalance Currently seems better Able to move his neck without symptoms currently CT head is negative MRI brain - negative for stroke IV fluids given monitor on telemetry Neurology consulted and discussed with - likely BPPV and recommend PT -> PT ordered Diabetes Hold home meds Sliding scale Will monitor Right sided chest pain on and off follow serial ce and echo. Troponins negative, echo pending Hyperlipidemia On statin Hypertension On hydrochlorothiazide, metoprolol succinate, olmesartan Will monitor DVT prophylaxis SCDs Disposition med/telemetry Full code Admission and Anticipated Discharge Date Admission Date: March 29, 2023 Subjective Pt seen in follow up of feeling dizzy/ vertigo Currently laying in bed in NAD Says he feels better but not quite back to normal MRI brain - negative for stroke Discussed w/ neurology - likely BPPV and recommend PT, PT consulted Pt otherwise denies any fever, chills, chest pain shortness of breath Said he had ear ringing which is now resolved Review of Systems Review of Systems: All systems reviewed & are unremarkable except as noted in Subjective Physical Exam Physical Exam: General- WD/WN elderly M in NAD Head- atraumatic Eyes- PERRL.Currently no nystagmus seen. ENT- oropharynx clear Neck- supple, no JVD. Lungs- clear to auscultation no wheezing or crackles. Heart- regular rhythm; no murmur, no gallop. Abdomen- normal bowel sounds, soft, nontender, no distension. Extremities- no pretibial edema, no erythema seen. Neuro- alert, oriented x 3; PERRL, EOMI; no facial palsy; no dysarthria; motor 5/5 bilaterally; coordination of movements normal. No pronator drift. Sensations intact Skin- warm & dry Results & Data Results & Data Vital Signs (Past 12 Hours) Vital Signs Pulse Pulse Resp BP BP Pulse Ox Pulse Ox 03/30/23 15:32 80 03/30/23 14:40 93 H 18 125/83 93 03/30/23 14:35 94 H 20 147/88 H 96 03/30/23 14:35 78 18 138/74 98 11/27/23 08:00 81 03/30/23 07:04 97 03/30/23 07:02 81 20 135/85 97 O2 Del Method O2 Del Method 03/30/23 15:32 03/30/23 14:40 Room Air 03/30/23 14:35 Room Air 03/30/23 14:35 Room Air 03/30/23 08:00 03/30/23 07:04 Room Air 03/30/23 07:02 Room Air Laboratory Results 03/30/23 03/30/23 03/30/23 Range/Units 11:54 07:51 07:24 WBC (4.8-10.8) K/ul RBC (4.70-6.10) M/uL Hgb (14.0-18.0) g/dl Hct (42.0-52.0) % MCV (80.0-100.0) fL MCH (25.0-34.0) pg MCHC (32.0-36.0) g/dL RDW Std Deviation (36.4-46.3) fL RDW Coeff of Lamonte (11.5-14.5) % Plt Count (130-400) K/uL MPV (9.4-12.4) fL Immature Gran % (Auto) % Neut % (Auto) % Lymph % (Auto) % [place] % (Auto) % Eos % (Auto) % Baso % (Auto) % Neut # (Auto) (1.40-6.50) K/uL Lymph # (Auto) (1.20-3.40) K/uL [place] # (Auto) (0.11-0.59) K/uL Eos # (Auto) (0.00-0.50) K/uL Baso # (Auto) (0.00-0.20) K/uL Immature Gran # (Auto) (0.01-0.20) K/uL Sodium (136-145) mmol/L Potassium (3.5-5.1) mmol/L Chloride (98-107) mmol/L Carbon Dioxide (21-32) mmol/L Anion Gap (3-11) BUN (6-23) mg/dl Creatinine (0.6-1.4) mg/dl Est Cr Clr Drug Dosing ml/min Est GFR ( Amer) ml/min Est GFR (Non-Af Amer) ml/min BUN/Creatinine Ratio (10-20) Glucose (70-99(Fasting)) mg/dl POC Glucose 182 H 135 H (70-99) mg/dl Estimat Average Glucose mg/dl Hemoglobin A1c (4.5-5.6) % Calcium (8.6-10.3) mg/dl Magnesium (1.7-2.4) mg/dl Total Bilirubin (0.2-1.0) mg/dl AST (13-39) U/L ALT (7-52) U/L Alkaline Phosphatase (34-104) U/L Troponin I High Sens 6.5 (0-20) pg/ml Total Protein (6.0-8.3) gm/dl Albumin (3.4-5.0) gm/dl Globulin (2.5-4.0) gm/dl Albumin/Globulin Ratio (0.9-2) 03/30/23 03/30/23 03/29/23 Range/Units 03:57 03:56 22:25 WBC 7.53 (4.8-10.8) K/ul RBC 5.15 (4.70-6.10) M/uL Hgb 15.9 (14.0-18.0) g/dl Hct 46.2 (42.0-52.0) % MCV 89.7 (80.0-100.0) fL MCH 30.9 (25.0-34.0) pg MCHC 34.4 (32.0-36.0) g/dL RDW Std Deviation 41.9 (36.4-46.3) fL RDW Coeff of Lamonte 12.8 (11.5-14.5) % Plt Count 159 (130-400) K/uL MPV 10.5 (9.4-12.4) fL Immature Gran % (Auto) 0.4 % Neut % (Auto) 67.2 % Lymph % (Auto) 19.7 % [place] % (Auto) 11.6 % Eos % (Auto) 0.7 % Baso % (Auto) 0.4 % Neut # (Auto) 5.07 (1.40-6.50) K/uL Lymph # (Auto) 1.48 (1.20-3.40) K/uL [place] # (Auto) 0.87 H (0.11-0.59) K/uL Eos # (Auto) 0.05 (0.00-0.50) K/uL Baso # (Auto) 0.03 (0.00-0.20) K/uL Immature Gran # (Auto) 0.03 (0.01-0.20) K/uL Sodium 139 (136-145) mmol/L Potassium 3.9 (3.5-5.1) mmol/L Chloride 105 (98-107) mmol/L Carbon Dioxide 25 (21-32) mmol/L Anion Gap 9 (3-11) BUN 25 H (6-23) mg/dl Creatinine 0.88 (0.6-1.4) mg/dl Est Cr Clr Drug Dosing 89.8 ml/min Est GFR ( Amer) 103.7 ml/min Est GFR (Non-Af Amer) 89.5 ml/min BUN/Creatinine Ratio 28.4 H (10-20) Glucose 145 H (70-99(Fasting)) mg/dl POC Glucose 199 H (70-99) mg/dl Estimat Average Glucose 151 mg/dl Hemoglobin A1c 6.9 H (4.5-5.6) % Calcium 9.7 (8.6-10.3) mg/dl Magnesium 2.1 (1.7-2.4) mg/dl Total Bilirubin (0.2-1.0) mg/dl AST (13-39) U/L ALT (7-52) U/L Alkaline Phosphatase (34-104) U/L Troponin I High Sens (0-20) pg/ml Total Protein (6.0-8.3) gm/dl Albumin (3.4-5.0) gm/dl Globulin (2.5-4.0) gm/dl Albumin/Globulin Ratio (0.9-2) 03/29/ Range/Units 18:11 WBC 13.47 H (4.8-10.8) K/ul RBC 5.35 (4.70-6.10) M/uL Hgb 16.4 (14.0-18.0) g/dl Hct 48.3 (42.0-52.0) % MCV 90.3 (80.0-100.0) fL MCH 30.7 (25.0-34.0) pg MCHC 34.0 (32.0-36.0) g/dL RDW Std Deviation 41.6 (36.4-46.3) fL RDW Coeff of [place]onte 12.7 (11.5-14.5) % Plt Count 159 (130-400) K/uL MPV 10.7 (9.4-12.4) fL Immature Gran % (Auto) 0.6 % Neut % (Auto) 88.0 % Lymph % (Auto) 6.2 % [place] % (Auto) 4.7 % Eos % (Auto) 0.1 % Baso % (Auto) 0.4 % Neut # (Auto) 11.86 H (1.40-6.50) K/uL Lymph # (Auto) 0.83 L (1.20-3.40) K/uL [place] # (Auto) 0.63 H (0.11-0.59) K/uL Eos # (Auto) 0.01 (0.00-0.50) K/uL Baso # (Auto) 0.06 (0.00-0.20) K/uL Immature Gran # (Auto) 0.08 (0.01-0.20) K/uL Sodium 139 (136-145) mmol/L Potassium 4.0 (3.5-5.1) mmol/L Chloride 103 (98-107) mmol/L Carbon Dioxide 26 (21-32) mmol/L Anion Gap 10 (3-11) BUN 25 H (6-23) mg/dl Creatinine 1.05 (0.6-1.4) mg/dl Est Cr Clr Drug Dosing 75.3 ml/min Est GFR ( Amer) 85.3 ml/min Est GFR (Non-Af Amer) 73.6 ml/min BUN/Creatinine Ratio 23.8 H (10-20) Glucose 175 H (70-99(Fasting)) mg/dl POC Glucose (70-99) mg/dl Estimat Average Glucose mg/dl Hemoglobin A1c (4.5-5.6) % Calcium 10.1 (8.6-10.3) mg/dl Magnesium (1.7-2.4) mg/dl Total Bilirubin 0.6 (0.2-1.0) mg/dl AST 17 (13-39) U/L ALT 32 (7-52) U/L Alkaline Phosphatase 57 (34-104) U/L Troponin I High Sens 4.6 (0-20) pg/ml Total Protein 7.2 (6.0-8.3) gm/dl Albumin 4.4 (3.4-5.0) gm/dl Globulin 2.8 (2.5-4.0) gm/dl Albumin/Globulin Ratio 1.6 (0.9-2) Medications Administered Current Inpatient Medications Acetaminophen (Acetaminophen 325 Mg Tab) 650 mg PO Q4H PRN PRN Reason: Pain or Fever Stop: 04/28/23 22:06 Last Admin: 03/29/23 22:42 Dose: 650 mg Aspirin (Aspirin 81 Mg Ectab) 81 mg PO DAILY ÁNGEL Stop: 04/29/23 08:59 Last Admin: 03/30/23 08:17 Dose: Not Given Atorvastatin Calcium (Atorvastatin 40 Mg Tab) 40 mg PO DAILY ÁNGEL Stop: 04/29/23 08:59 Last Admin: 03/30/23 08:31 Dose: Not Given Dextrose (Dextrose 50% 50 Ml Syringe) 25 - 50 ml IV UD PRN; Protocol PRN Reason: Hypoglycemia Protocol Stop: 04/28/23 22:06 Glucagon (Glucagon For Inj 1 Mg Vial) 1 mg SQ UD PRN; Protocol PRN Reason: Hypoglycemia Protocol Stop: 04/28/23 22:06 Glucose (Glucose 10 Tab/Tube) 4 - 8 tab PO UD PRN; Protocol PRN Reason: Hypoglycemia Treatment Stop: 04/28/23 22:06 Glucose (Glucose 40% Gel 15 Gm Tube) 15 - 30 gm PO UD PRN; Protocol PRN Reason: Hypoglycemia Protocol Stop: 04/28/23 22:06 Hydrochlorothiazide (Hydrochlorothiazide 25 Mg Tab) 25 mg PO DAILY ÁNGEL Stop: 04/29/23 08:59 Last Admin: 03/30/23 08:17 Dose: Not Given Sodium Chloride (Nss) 1,000 mls @ 100 mls/hr IV .Q10H ÁNGEL Stop: 04/28/23 22:06 Last Admin: 03/30/23 08:13 Dose: 100 mls/hr Insulin Aspart (Insulin Aspart Per Unit Charge) 0 units SC ACHS ÁNGEL Stop: 04/28/23 22:06 Last Admin: 03/30/23 13:18 Dose: 2 units Meclizine HCl (Meclizine Hcl 25 Mg Tab) 25 mg PO TID PRN PRN Reason: Vertigo Stop: 04/28/23 22:06 Metoprolol Succinate (Metoprolol Succ 50mg Ext Rel Tab) 50 mg PO DAILY [facility] Stop: 04/29/23 08:59 Last Admin: 03/30/23 08:27 Dose: Not Given Miscellaneous (Carbohydrates For Hypoglycemia ) 15 - 30 gm PO UD PRN PRN Reason: Hypoglycemia Protocol Stop: 04/28/23 22:06 Nitroglycerin (Nitroglycerin Sl 0.4 Mg/Tab Tab) 0.4 mg SL Q5M PRN PRN Reason: Chest Pain Stop: 04/28/23 22:06 Olmesartan (Olmesartan Medoxomil 20 Mg Tab) 20 mg PO DAILY [facility] Stop: 04/29/23 08:59 Last Admin: 03/30/23 08:27 Dose: Not Given Ondansetron HCl (Ondansetron Inj 2 Mg/Ml 2 Ml Vial) 4 mg IV Q6H PRN PRN Reason: Nausea Stop: 04/28/23 22:06 Last Admin: 03/30/23 07:52 Dose: 4 mg
--- NOTE | 2023-03-30 17:42 | Electrocardiogram Report ---
Test Reason : Blood Pressure : / mmHG Vent. Rate : 089 BPM Atrial Rate : 089 BPM P-R Int : 240 ms QRS Dur : 092 ms QT Int : 368 ms P-R-T Axes : 052 -12 010 degrees QTc Int : 447 ms Sinus rhythm with 1st degree A-V block Poor R wave progression, consider anterior ID vs. lead placement vs. LVH Abnormal ECG When compared with ECG of 07-JAN-2002 16:05, GA interval has increased Confirmed by Felix An ([id number]) on 03/30/2023 5:42:12 PM Referred By: REFERRED SELF Confirmed By:Harry An
[2023-03-31] MEDS: SODIUM CHLORIDE 0.9% 1,000 ML IV SCH (03:13)
[2023-03-31] MEDS: INSULIN ASPART PER UNIT CHARGE SC SCH ×2 (09:43→13:04)
[2023-03-31] MEDS: METOPROLOL SUCC 50MG EXT REL TAB PO SCH (09:46)
[2023-03-31] MEDS: ATORVASTATIN 40 MG TAB PO SCH (09:47)
[2023-03-31] MEDS: ASPIRIN 81 MG ECTAB PO SCH (09:47)
[2023-03-31] MEDS: hydroCHLOROthiazide 25 MG TAB PO SCH (09:47)
[2023-03-31] MEDS: OLMESARTAN MEDOXOMIL 20 MG TAB PO SCH (11:26)
[2023-03-31] MEDS ORDERED: LOSARTAN POTASSIUM 50 MG TAB PO SCH (11:30)
--- NOTE | 2023-03-31 12:27 | Discharge Summary ---
Date of Service March 31, 2023 Admission HPI Per Admitting Provider 67-year-old male with past med history significant for diabetes, diabetic polyneuropathy, diabetic retinopathy, hyperlipidemia, hypertension, arthritis, presents with vertigo and some ambulatory dysfunction. Patient states she had vertigo last Thursday but that got resolved by Thursday. But again today got severe vertigo and nauseous and was not even able to get up from the bed. Currently is much improved. But in the ER was having some difficulty with balance. He is having runny nose for 2 weeks. No cough. Has headache now. No shortness of breath. No fevers. Appetite is okay. No difficulty swallowing. For last 2 weeks he is getting sharp right-sided chest pain for few seconds while resting on and off. Today has some abdominal discomfort. Normal bowel and bladder movements. Currently resting comfortable and hemodynamically stable. Past medical history. As mentioned above Past surgical history. Colonoscopy. Tonsillectomy adenoidectomy. Treatment of extensive retinopathy. Social history. . No smoking. Alcohol occasional. No drug use. Family history. Maternal grandmother had diabetes. Father had AL. Mother had CAD. Thyroid disorder. Admission Exam Per Admitting Provider General- Not in distress Head- atraumatic Eyes- PERRL.Currently no nystagmus seen. ENT- oropharynx clear Neck- supple, no JVD. Lungs- clear to auscultation no wheezing or crackles. Heart- regular rhythm; no murmur, no gallop. Abdomen- normal bowel sounds, soft, nontender, no distension. Extremities- no pretibial edema, no erythema seen. Neuro- alert, oriented x 3; PERRL, EOMI; no facial palsy; no dysarthria; motor 5/5 bilaterally; coordination of movements normal. No pronator drift. Sensations intact Skin- warm & dry Principal Diagnosis Dizziness / vertigo likely secondary to BPPV Discharge Exam General- WD/WN elderly M in NAD Head- atraumatic Eyes- PERRL.Currently no nystagmus seen. ENT- oropharynx clear Neck- supple, no JVD. Lungs- clear to auscultation no wheezing or crackles. Heart- regular rhythm; no murmur, no gallop. Abdomen- normal bowel sounds, soft, nontender, no distension. Extremities- no pretibial edema, no erythema seen. Neuro- alert, oriented x 3; PERRL, EOMI; no facial palsy; no dysarthria; motor 5/5 bilaterally; coordination of movements normal. No pronator drift. Sensations intact Skin- warm & dry Discharge Data Allergies Allergy/AdvReac Type Severity Reaction Status Date / Time lisinopril AdvReac Mild Cough Verified 12/03/22 14:55 oxycodone AdvReac Mild Nausea/Vomiting Verified 12/03/22 14:55 - long acting product only Consultations 03/29/23 19:07 ED Decision to Admit Stat 03/30/23 08:00 Consult Neurology Routine Ordered Studies 03/29/23 17:29 CT head/brain wo con Stat Findings: The ventricles, basal cisterns, and cerebral sulci are normal. There is no acute intracranial hemorrhage or evidence of acute territorial infarction. Neither mass effect, shift of the midline structures, nor abnormal extra-axial fluid collections are shown. Imaged portions of the paranasal sinuses and mastoid air cells are clear. The orbits appear normal. There are no acute fractures of the calvaria or scalp swelling. Impression: No acute intracranial hemorrhage, no evidence of acute territorial infarction or other acute intracranial disease process. 03/29/23 22:07 MRI Brain [MR brain wo/w con] Urgent FINDINGS: Brain: Minimal nonspecific white matter changes. No mass. No hemorrhage. No acute infarct. The flow voids at the base of the brain are intact. Normal enhancement. The dural venous sinuses are patent. Ventricles: Moderate ventriculomegaly. Bones/joints: Unremarkable. No acute fracture. Sinuses: Unremarkable as visualized. No acute sinusitis. Mastoid air cells: Unremarkable as visualized. No mastoid effusion. Orbits: Unremarkable as visualized. IMPRESSION: No evidence of acute intracranial pathology. Minimal nonspecific white matter changes. Hospital Course (1) Vertigo: 67 yo M with past med significant for diabetes, diabetic polyneuropathy, diabetic retinopathy, hyperlipidemia, hypertension, arthritis, presents with vertigo and some ambulatory dysfunction. Vertigo Associated with nausea Some imbalance Currently seems better Able to move his neck without symptoms currently CT head is negative MRI brain - negative for stroke IV fluids given monitor on telemetry Neurology consulted and discussed with - likely BPPV and recommend PT -> PT ordered Pt worked w/ PT and feels better Plan to discharge pt with meclizine prn and close PCP follow up. May need further PT, or referral to ENT, or balance clinic in [place]. Diabetes Hold home meds Sliding scale Will monitor Right sided chest pain on and off Troponins negative Echo obtained - LV systolic function is normal. EF 55 to 60%. Grade 1 diastolic dysfunction (abnormal relaxation pattern). There is trace mitral regurg. Hyperlipidemia On statin Hypertension On hydrochlorothiazide, metoprolol succinate, olmesartan cont. to monitor Total Time Total Time Spent Total Time Spent (In Minutes): 40 Discharge Plan Discharge Items Patient Disposition: Home - Self-Care Reason For Visit: VERTIGO Discharge Diagnosis: Dizziness / vertigo likely secondary to BPPV Activity: Per Instructions section Non-emergency contact: Primary Care Provider Call non-emergency contact if: you have any medication questions and your symptoms worsen Follow-up/Referrals: Gold Zhang MD [Primary Care Provider] - Diet: Carb Consistent or DM2 and Heart Healthy Addtl Attending Provider Instructions: Follow up with primary care physician within 1 week. You may need physical therapy or other referral. Take meclizine as needed as prescribed. Pending Studies at Discharge: No Stand-Alone Forms: [facility] [employer], Smoking Cessation Medications and DC Order Prescriptions: New meclizine 25 mg Tablet 25 mg PO TID PRN (Reason: dizziness) Qty: 10 0RF Continued insulin lispro [Humalog U-100 Insulin] 100 unit/mL solution 200 unit subcut DAILY 90 Days Qty: 180 3RF Rx Instructions: via insulin pump Invokana 300 mg tablet 300 mg PO DAILY Qty: 30 5RF (DME) Contour Test Strips Strip See Rx Instructions .ROUTE .MEDSUPPLY Qty: 10 Rx Instructions: test blood sugar 4 x daily Ozempic 2 mg/dose (8 mg/3 mL) pen injector 2 mg subcut Q7D Qty: 3 12RF olmesartan [Benicar] 20 mg tablet 20 mg PO DAILY atorvastatin 40 mg tablet 40 mg PO DAILY Qty: 30 2RF hydrochlorothiazide 25 mg tablet 25 mg PO DAILY Qty: 30 2RF metoprolol succinate [Toprol XL] 50 mg tablet extended release 24 hr 50 mg PO DAILY Qty: 30 2RF aspirin 81 mg tablet,delayed release (DR/EC) 81 mg PO DAILY metformin 500 mg tablet extended release 24 hr 1,000 mg PO BID Qty: 360 5RF Discharge Orders: Discharge Order (Routine); Ordered 03/31/23 Ordered By: Troy Richardson Admission Data Admit Date/Time: 03/29/23 20:17 Attending Provider: Troy Richardson Admit Provider: Ronnie Allan Primary Care Provider: Gold Zhang Other Providers: Ronnie Allan
== END 2023-03-31 14:14 | disposition home or self-care (01) | DRG 149 ==
LOC: ED 16:34 → EDINP 20:17 → 2N 03-30 16:54